=== PATIENT | female | born 1940 | race Caucasian/White ===

== ENCOUNTER 2017-01-17 13:46 | Outpatient (CLI) | payer MEDICARE, OTHER | END 2017-01-17 13:47 | disposition home or self-care (01) | LOC: DI 13:46 | PROVIDERS: ATTEND Internal Medicine Cardiovascular Disease | DX: I48.0 Paroxysmal atrial fibrillation (principal); I51.7 Cardiomegaly | CPT/HCPCS: 93306 ==

== ENCOUNTER 2017-02-27 09:18 | Emergency (ER) | payer MEDICARE, OTHER ==
[2017-02-27] MEDS ORDERED: LIDOCAINE PATCH 5% TOP STA (10:22)
--- NOTE | 2017-02-27 10:27 | ED Physician Documentation ---
History of Present Illness - Stated complaint Stated Complaint: BACK PAIN - Chief complaint Chief Complaint: Back Pain - Additonal information Additional information: hx from pt 76 f on coumadin insidious onset severe low right back pain hx sciatica but this is different no fever no CP no abd pain no dysuria hematuria no saddle anesthesia some numbness to upper lat R thigh no recent surgery or dental work Review of Systems Constitutional: denies: Fever, Chills Cardiac: denies: Chest pain / pressure Respiratory: denies: Dyspnea GI: denies: Abdominal Pain : denies: Dysuria, Incontinent, Hematuria Musculoskeletal: reports: Back pain Neurologic: reports: Numbness (R thigh) Endocrine: reports: Easy bruising / bleeding Immunocompromised: denies: Immunocompromised PD PAST MEDICAL HISTORY - Past Medical History Past Medical History: Yes Cardiovascular: Hypertension, High cholesterol, Atrial fibrillation Respiratory: COPD - Past Surgical History Past Surgical History: Yes General: Appendectomy HEENT: Cataracts - Present Medications Home Medications: Ambulatory Orders Medication Instructions Recorded Confirmed Flecainide [Tambocar] 100 mg PO BID 09/22/15 02/27/17 Fluticasone [Flonase] 2 puffs INH DAILY 09/22/15 02/27/17 Fluticasone/Salmeterol [Advair 2 puffs INH DAILY 09/22/15 02/27/17 500-50 Diskus] Ipratropium/Albuterol [Combivent 2 puffs INH DAILY 09/22/15 02/27/17 Respimat] Levothyroxine Sodium [Levoxyl] 25 mcg PO DAILY 09/22/15 02/27/17 Pravastatin [Pravachol] 40 mg PO DAILY 09/22/15 02/27/17 Warfarin Sodium [Coumadin] 5 mg PO DAILY 09/22/15 02/27/17 diltiaZEM CD [Cardizem Cd] 120 mg PO BID 09/22/15 02/27/17 Acetaminophen [Tylenol] 3 tab PO DAILY PM PRN 02/27/17 02/27/17 Cephalexin [Keflex] 500 mg PO Q6H #40 capsule 02/27/17 Furosemide 1 tab PO DAILY 02/27/17 02/27/17 HYDROcod/ACETAM 5/325 [[place] 5/325] 1 tab PO QID PRN 02/27/17 02/27/17 Lidocaine Patch 5% [Lidoderm Patch] 1 - 2 each TOP DAILY PRN #20 patch 02/27/17 Psyllium Husk [Metamucil] 1 packet PO DAILY 02/27/17 02/27/17 - Allergies Allergies/Adverse Reactions: Allergies Allergy/AdvReac Type Severity Reaction Status Date / Time Sulfa (Sulfonamide Allergy Unknown Verified 02/27/17 09:26 Antibiotics) - Social History Does the pt smoke?: No Smoking Status: Never smoker Does the pt drink ETOH?: Yes Does the pt have substance abuse?: No - Immunizations Immunizations are current?: Yes - POLST Patient has POLST: No PD ED PE NORMAL - Vitals Vital signs reviewed: Yes - Neck Neck: Supple, no meningeal sign - Cardiac Cardiac: RRR - Respiratory Respiratory: No respiratory distress, Clear bilaterally - Abdomen Abdomen: Soft, Non tender, Other (no pulsatile mass) - Back Back: No spinal TTP, Other (TTP low right lumbar region - no rash hematoma swelling bruising) - Derm Derm: Normal color - Neuro Neuro: Other (hip flex knee ext foot dorsi planta great toe ext 5/5, dec senation lateral upper right thigh, no clonus, patellar DTR 2/4, denies saddle anesthesia, neg SLR [place]) Results - Vitals Vitals: Vital Signs - 24 hr 02/27/17 09:20 Temperature 36.4 C L Heart Rate 68 Respiratory 20 Rate Blood Pressure 156/56 H O2 Saturation 92 Oxygen O2 Source Nasal cannula - Labs Labs: Laboratory Tests 02/27/17 02/27/17 02/27/17 11:02 11:25 11:25 WBC 7.3 RBC 4.38 Hgb 13.3 Hct 41.0 MCV 93.7 MCH 30.5 MCHC 32.5 RDW 15.0 Plt Count 274 MPV 8.3 Neut # 5.2 Lymph # 1.6 [place] # 0.4 Eos # 0.1 Baso # 0.1 Absolute Nucleated RBC 0.00 Nucleated RBC % 0.1 PT 34.3 H INR 3.0 H Sodium Potassium Chloride Carbon Dioxide Anion Gap BUN Creatinine Estimated GFR (MDRD) Glucose Calcium Urine Color YELLOW Urine Clarity CLOUDY Urine pH 6.5 Ur Specific [place] 1.025 Urine Protein NEGATIVE Urine Glucose (UA) NEGATIVE Urine Ketones NEGATIVE Urine Occult Blood TRACE-INTA Urine Nitrite POSITIVE H Urine Bilirubin NEGATIVE Urine Urobilinogen 0.2 (NORMAL) Ur Leukocyte Esterase TRACE H Urine RBC 0-5 Urine WBC 11-25 H Ur Squamous Epith Cells FEW Squamous Urine Bacteria Many H Urine Mucus Few Strands Ur Microscopic Review INDICATED Urine Culture Comments INDICATED 02/27/17 11:25 WBC RBC Hgb Hct MCV MCH MCHC RDW Plt Count MPV Neut # Lymph # [place] # Eos # Baso # Absolute Nucleated RBC Nucleated RBC % PT INR Sodium 138 Potassium 3.7 Chloride 100 L Carbon Dioxide 28 Anion Gap 10.0 BUN 12 Creatinine 0.8 Estimated GFR (MDRD) 70 L Glucose 116 H Calcium 8.8 Urine Color Urine Clarity Urine pH Ur Specific [place] Urine Protein Urine Glucose (UA) Urine Ketones Urine Occult Blood Urine Nitrite Urine Bilirubin Urine Urobilinogen Ur Leukocyte Esterase Urine RBC Urine WBC Ur Squamous Epith Cells Urine Bacteria Urine Mucus Ur Microscopic Review Urine Culture Comments - Rads (name of study) CT abd pelvis Radiology: See rad report (no acute, pulm dz no change, hypersense L renal 1.3 cm nodule mildly inc from 2016 rec sono) PD MEDICAL DECISION MAKING - ED course ED course: CT no acute process does have UTI perhaps developing into pyelo feels much better after lido patch and would like to go home with same Departure - Departure Disposition: 01 Home, Self Care Clinical Impression: Pyelonephritis Back pain Qualifiers: Back pain location: low back pain Chronicity: acute Back pain laterality: right Sciatica presence: without sciatica Qualified Code(s): M54.5 - Low back pain Condition: Good Instructions: ED Kidney Infec Female, ED Neck Back Pain General Follow-Up: Morgan Becker MD [Primary Care Provider] - Prescriptions: Cephalexin [Keflex] 500 mg PO Q6H #40 capsule Lidocaine Patch 5% [Lidoderm Patch] 1 - 2 each TOP DAILY PRN #20 patch PRN Reason: Pain Comments: Please have your INR monitored carefully while you are on antibiotics - even keflex can cause the INR to go up. Take a probiotic with the antibiotic to prevent GI upset. Lidocaine patches as needed for pain. Please follow up with your PMD for a recheck - also please ask your PMD to get an ultrasound of your left kidney to further evaluate the nodule that was seen on CT (it has been there since your last CT scan but is a little bigger than before) And please get your blood pressure rechecked - it was high today
[2017-02-27] MEDS ORDERED: LIDOCAINE PATCH 5% TOP ONE (10:29)
--- NOTE | 2017-02-27 11:09 | CT Preliminary Report ---
Exam: CT ABDOMEN/PELVIS W/O IMPRESSION: 1. No definite acute abnormality of the abdomen or pelvis, by noncontrast imaging. 2. Pulmonary emphysematous disease and pulmonary nodules, without change. 3. Hyperdense left renal 1.3 cm nodule has mildly increased from 09/22/2015 and may represent an enla rging hyperdense cyst but it is not specific. Ultrasound is recommended for further characterization. 4. Additional chronic and postoperative findings, as above. [facility] SITE ID: [id number]
--- NOTE | 2017-02-27 11:12 | CT Report ---
EXAM: CT ABDOMEN AND PELVIS (CT KUB) EXAM DATE: 02/27/2017 10:44 AM. CLINICAL HISTORY: Atraumatic right low back pain coumadin. COMPARISONS: None. TECHNIQUE: Routine axial helical CT imaging was performed through the abdomen and pelvis without IV c ontrast. Reconstructions: Coronal and sagittal. In accordance with CT protocol optimization, one or more of the following dose reduction techniques w ere utilized for this exam: automated exposure control, adjustment of mA and/or KV based on patient s ize, or use of iterative reconstructive technique. FINDINGS: Lung Bases: Stable pulmonary emphysematous disease, pulmonary scarring and bilateral pulmonary nodule s. Right Kidney/Ureter: No stones, hydronephrosis, or hydroureter. No perinephric fat stranding. Left Kidney/Ureter: Posterior exophytic 1.5 hypodensity is stable and consistent with a cyst. A sligh tly hyperdense 1.1 cm mid intrarenal nodule appears mildly increased in size. This may be an increasi ng hyperdense cyst but it is not specific. Ultrasound correlation could be performed. No hydronephros is, hydroureter or significant perinephric stranding. Other Solid Organs: Noncontrast images of the solid organs are grossly unremarkable. Gallbladder/Bile Ducts: Unremarkable. Peritoneal Cavity: No free fluid, free air or merissa adenopathy. Substantial colonic diverticulosis wi thout evidence of diverticulitis. The cecum projects anteriorly and somewhat superiorly. The appendix is not clearly identified but there is no evidence of appendicitis.. Pelvic Organs: Limited evaluation due to artifact from right hip arthroplasty. No merissa abnormality o f the bladder or visualized pelvic organs. Vasculature: Substantial atherosclerotic calcifications, without aneurysm. Other: No definite acute osseous abnormality. Status post left hip arthroplasty. Severe left hip oste oarthritis redemonstrated. Degenerative disease of the spine. Stable grade 1 anterolisthesis at L4-L5 . Fat-containing umbilical region hernia is mildly increased. IMPRESSION: 1. No definite acute abnormality of the abdomen or pelvis, by noncontrast imaging. 2. Pulmonary emphysematous disease and pulmonary nodules, without change. 3. Hyperdense left renal 1.3 cm nodule has mildly increased from 09/22/2015 and may represent an enla rging hyperdense cyst but it is not specific. Ultrasound is recommended for further characterization. 4. Additional chronic and postoperative findings, as above. [facility] Referring Provider Line: [phone] SITE ID: [id number]
[2017-02-27 11:33] LABS: BASOPHILS # (AUTO) 0.1 10^3/uL (0.0-0.1); BASOPHILS % (AUTO) 0.9 %; EOSINOPHILS # (AUTO) 0.1 10^3/uL (0.0-0.7); EOSINOPHILS % (AUTO) 0.8 %; HGB - HEMOGLOBIN 13.3 g/dL (12.0-16.0); LYMPHOCYTES # (AUTO) 1.6 10^3/uL (1.5-3.5); LYMPHOCYTES % (AUTO) 21.7 %; MEAN CORPUSCULAR HEMOGLOBIN 30.5 pg (27.0-31.0); MEAN CORPUSCULAR HGB CONC 32.5 g/dL (32.0-36.0); MEAN CORPUSCULAR VOLUME 93.7 fL (81.0-99.0); MEAN PLATELET VOLUME 8.3 fL (7.9-10.8); MONOCYTES # (AUTO) 0.4 10^3/uL (0.0-1.0); MONOCYTES % (AUTO) 5.8 %; NEUTROPHILS # (AUTO) 5.2 10^3/uL (1.5-6.6); NEUTROPHILS % (AUTO) 70.8 %; NUCLEATED RED BLOOD CELLS AUTO 0.1 /100WBC; RED BLOOD COUNT 4.38 10^6/uL (4.20-5.40); UNCORRECTED WHITE BLOOD COUNT 7.3 x10^3/uL; WHITE BLOOD COUNT 7.3 x10^3/uL (4.8-10.8)
[2017-02-27 11:39] LABS: BILIRUBIN,URINE NEGATIVE (NEGATIVE); PH,URINE 6.5 PH (5.0-7.5); UA w/ MICROSCOPIC CHARGE YES
[2017-02-27 11:40] LABS: CALCIUM 8.8 mg/dL (8.5-10.3); CREATININE 0.8 mg/dL (0.4-1.0); POTASSIUM 3.7 mmol/L (3.5-5.0)
[2017-02-27 11:58] LABS: PT - PROTHROMBIN TIME 34.3 secs (9.9-12.6)
[2017-02-27 12:16] LABS: UR CULTURE IF IND INDICATED
[2017-02-27 13:13] VITALS: BP 146/76
== END 2017-02-27 13:18 | disposition home or self-care (01) ==
LOC: ED 09:18
DX: N12 Tubulo-interstitial nephritis, not specified as acute or chronic (principal); M54.5 Low back pain; I10 Essential (primary) hypertension; E78.00 Pure hypercholesterolemia, unspecified; Z79.01 Long term (current) use of anticoagulants
CPT/HCPCS: 36415; 74176; 80048; 81001; 85025; 85610; 87077; 87086; 87181; 99283; A9270; 81003

== ENCOUNTER 2017-03-30 14:36 | Outpatient (CLI) | payer MEDICARE, OTHER ==
--- NOTE | 2017-03-30 16:43 | Ultrasound Report ---
LIMITED PELVIC ULTRASOUND: 03/30/2017 CLINICAL INDICATION: Right groin pain, question hernia. TECHNIQUE: Real-time scanning was performed with outreach representative static images obtained. FINDINGS: Ultrasound of the right groin was performed. No inguinal or femoral hernia is identified. A normal sized right inguinal lymph node is incidentally noted. The vasculature appears unremarkable. IMPRESSION: NO EVIDENCE OF A RIGHT INGUINAL HERNIA. JOB #: [id number] EXT JOB #:
--- NOTE | 2017-03-30 16:50 | Ultrasound Report ---
RENAL ULTRASOUND: 03/30/2017 CLINICAL INDICATION: Possible hyperdense cyst left kidney on CT. COMPARISON: CT of 02/27/2017. TECHNIQUE: Real-time sonographic vascular imaging was performed by the integration assistant through the kidneys utilizing both color-flow and Doppler spectral analysis. Multiple sales representatives static images were saved for review. FINDINGS: Image quality is degraded by patient body habitus and difficulty suspending respiration (patient on oxygen with chronic lung disease). The right kidney measures 10.4 x 4.9 x 4.5 cm. No focal renal lesion, hydronephrosis, or perinephric collection is appreciated. The left kidney measures 12.0 x 5.3 x 5.1 cm. Neither the exophytic cyst arising from the upper pole or the possible hyperdense cyst in the lateral cortex of the left kidney is appreciated by ultrasound. No hydronephrosis or perinephric collection is seen. Prevoid, the urinary bladder measures 8.8 x 6.8 x 4.9 cm, yielding a prevoid volume of 156 mL. Bilateral ureteral jets are visualized. No significant postvoid residual is present. IMPRESSION: NONVISUALIZATION OF POSSIBLE LEFT RENAL CYSTS. CONSIDER FURTHER EVALUATION WITH CT IVP IF CLINICALLY WARRANTED. JOB #: [id number] EXT JOB #: MTDD
== END 2017-03-30 14:37 | disposition home or self-care (01) ==
LOC: DI 14:36
PROVIDERS: ATTEND Nurse Practitioner Family
DX: R10.31 Right lower quadrant pain (principal); N28.1 Cyst of kidney, acquired
CPT/HCPCS: 76770; 76857

== ENCOUNTER 2017-04-02 12:31 | Outpatient (CLI) | payer MEDICARE, OTHER ==
[2017-04-02 18:57] LABS: ALBUMIN/GLOBULIN RATIO 1.5 (1.0-2.2); BILIRUBIN,TOTAL 0.6 mg/dL (0.2-1.0); BUN - BLOOD UREA NITROGEN 21 mg/dL (6-20); CALCIUM 9.1 mg/dL (8.5-10.3); CARBON DIOXIDE - CO2 27 mmol/L (21-32); CHLORIDE 100 mmol/L (101-111); CHOLESTEROL 230 mg/dL; GFR - MDRD 54 (>89); GLUCOSE 85 mg/dL (70-100); HDL CHOLESTEROL 58 mg/dL; LDL/HDL RATIO 2.6 (<4.4); POTASSIUM 3.7 mmol/L (3.5-5.0); SODIUM 138 mmol/L (135-145); TOTAL PROTEIN 7.6 g/dL (6.7-8.2); TRIGLYCERIDES 119 mg/dL; VLDL CHOLESTEROL 24 mg/dL
[2017-04-02 20:20] LABS: HEMOGLOBIN A1C 0.65 g/dL
== END 2017-04-02 12:32 | disposition home or self-care (01) ==
LOC: LAB.S 12:31
PROVIDERS: ATTEND Family Medicine
DX: I10 Essential (primary) hypertension (principal); R73.01 Impaired fasting glucose; E78.5 Hyperlipidemia, unspecified; I48.0 Paroxysmal atrial fibrillation; E03.9 Hypothyroidism, unspecified; H00.13 Chalazion right eye, unspecified eyelid; J44.9 Chronic obstructive pulmonary disease, unspecified
CPT/HCPCS: 36415; 80053; 80061; 83036; 84443

== ENCOUNTER 2017-08-03 08:00 | Outpatient (CLI) | payer MEDICARE, OTHER ==
[2017-08-03 17:43] LABS: BASOPHILS % (AUTO) 0.4 %; EOSINOPHILS # (AUTO) 0.1 10^3/uL (0.0-0.7); EOSINOPHILS % (AUTO) 0.9 %; HGB - HEMOGLOBIN 13.7 g/dL (12.0-16.0); LYMPHOCYTES # (AUTO) 2.1 10^3/uL (1.5-3.5); LYMPHOCYTES % (AUTO) 26.8 %; MEAN CORPUSCULAR HEMOGLOBIN 30.8 pg (27.0-31.0); MEAN CORPUSCULAR HGB CONC 32.8 g/dL (32.0-36.0); MEAN CORPUSCULAR VOLUME 93.8 fL (81.0-99.0); MEAN PLATELET VOLUME 9.3 fL (7.9-10.8); MONOCYTES # (AUTO) 0.6 10^3/uL (0.0-1.0); MONOCYTES % (AUTO) 7.6 %; NEUTROPHILS # (AUTO) 5.1 10^3/uL (1.5-6.6); NEUTROPHILS % (AUTO) 64.3 %; PLT - PLATELET COUNT 255 10^3/uL (130-450); RED BLOOD COUNT 4.46 10^6/uL (4.20-5.40); RED CELL DISTRIBUTION WIDTH 14.9 % (12.0-15.0)
[2017-08-03 18:06] LABS: ALBUMIN 4.1 g/dL (3.2-5.5); ALBUMIN/GLOBULIN RATIO 1.2 (1.0-2.2); BILIRUBIN,TOTAL 0.4 mg/dL (0.2-1.0); CALCIUM 9.1 mg/dL (8.5-10.3); TOTAL PROTEIN 7.4 g/dL (6.7-8.2)
[2017-08-03 18:50] LABS: HB2 TOTAL 15.3 g/dL; HEMOGLOBIN A1C 0.65 g/dL
== END 2017-08-03 08:01 | disposition home or self-care (01) ==
LOC: LAB.F 08:00
PROVIDERS: ATTEND Family Medicine
DX: I48.0 Paroxysmal atrial fibrillation (principal); R73.01 Impaired fasting glucose; E03.9 Hypothyroidism, unspecified
CPT/HCPCS: 36415; 80053; 83036; 84443; 85025

== ENCOUNTER 2018-01-29 13:39 | Outpatient (CLI) | payer MEDICARE, OTHER ==
[2018-01-29 20:19] LABS: ALT ALANINE AMINOTRANSFERASE 22 IU/L (10-60); AST ASPARTATE AMINOTRANSFERASE 24 IU/L (10-42); BUN - BLOOD UREA NITROGEN 19 mg/dL (6-20); CARBON DIOXIDE - CO2 30 mmol/L (21-32); CHLORIDE 98 mmol/L (101-111); CHOL/HDL RATIO 4.3 (<4.4); CHOLESTEROL 264 mg/dL; CREATININE 0.9 mg/dL (0.4-1.0); GFR - MDRD 61 (>89); GLUCOSE 96 mg/dL (70-100); HDL CHOLESTEROL 62 mg/dL; LDL CHOLESTEROL,CALCULATED 173 mg/dL; LDL/HDL RATIO 2.8 (<4.4); SODIUM 138 mmol/L (135-145); VLDL CHOLESTEROL 29 mg/dL
== END 2018-01-29 13:40 | disposition home or self-care (01) ==
LOC: LAB.F 13:39
PROVIDERS: ATTEND Internal Medicine
DX: I10 Essential (primary) hypertension (principal); E03.9 Hypothyroidism, unspecified; E78.5 Hyperlipidemia, unspecified
CPT/HCPCS: 36415; 80048; 80061; 83036; 83721; 84443; 84450; 84460

== ENCOUNTER 2018-06-25 01:52 | Outpatient (CLI) | payer MEDICARE, OTHER | END 2018-06-25 01:53 | disposition critical access hospital (66) | LOC: EMS 01:52 | PROVIDERS: ATTEND Surgery | DX: R06.02 Shortness of breath (principal) | CPT/HCPCS: A0425; A0427 ==

== ENCOUNTER 2018-06-25 02:26 | Inpatient (IN) | payer MEDICARE, OTHER ==
[2018-06-25] MEDS ORDERED: IPRATROPIUM/ALBUTEROL 3 ML NEB INH STA (02:34)
--- NOTE | 2018-06-25 02:39 | ED Physician Documentation ---
History of Present Illness - Stated complaint Stated Complaint: SOA - Chief complaint Chief Complaint: Resp - History obtained from History obtained from: Patient, Family - History of Present Illness Timing: How many days ago (4) Pain level max: 0 Pain level now: 0 Improved by: rest Worsened by: movement - Additonal information Additional information: 77-year-old female presents to the emergency department with upper respiratory infection and coughing for the past 4 days. She is on home O2. Review of Systems Constitutional: denies: Fever, Chills Nose: reports: Rhinorrhea / runny nose, Congestion Respiratory: reports: Cough, Wheezing GI: denies: Abdominal Pain, Nausea, Vomiting, Diarrhea Skin: denies: Rash Musculoskeletal: denies: Neck pain, Back pain Neurologic: denies: Headache PD PAST MEDICAL HISTORY - Past Medical History Cardiovascular: Hypertension, High cholesterol, Atrial fibrillation Respiratory: COPD - Past Surgical History Past Surgical History: Yes General: Appendectomy HEENT: Cataracts - Present Medications Home Medications: Ambulatory Orders Medication Instructions Recorded Confirmed Flecainide [Tambocar] 100 mg PO BID 09/22/15 06/25/18 Fluticasone [Flonase] 2 puffs INH DAILY 09/22/15 06/25/18 Fluticasone/Salmeterol [Advair 2 puffs INH DAILY 09/22/15 06/25/18 500-50 Diskus] Ipratropium/Albuterol [Combivent 2 puffs INH DAILY 09/22/15 06/25/18 Respimat] Levothyroxine Sodium [Levoxyl] 25 mcg PO DAILY 09/22/15 06/25/18 Pravastatin [Pravachol] 40 mg PO DAILY 09/22/15 06/25/18 Warfarin Sodium [Coumadin] 5 mg PO DAILY 09/22/15 06/25/18 diltiaZEM CD [Cardizem Cd] 120 mg PO BID 09/22/15 06/25/18 Acetaminophen [Tylenol] 3 tab PO DAILY PM PRN 02/27/17 06/25/18 Cephalexin [Keflex] 500 mg PO Q6H #40 capsule 02/27/17 06/25/18 Furosemide 1 tab PO DAILY 02/27/17 06/25/18 HYDROcod/ACETAM 5/325 [[place] 5/325] 1 tab PO QID PRN 02/27/17 06/25/18 Lidocaine Patch 5% [Lidoderm Patch] 1 - 2 each TOP DAILY PRN #20 patch 02/27/17 06/25/18 Psyllium Husk [Metamucil] 1 packet PO DAILY 02/27/17 06/25/18 - Allergies Allergies/Adverse Reactions: Allergies Allergy/AdvReac Type Severity Reaction Status Date / Time Sulfa (Sulfonamide Allergy Unknown Verified 06/25/18 02:34 Antibiotics) - Social History Does the pt smoke?: No Smoking Status: Never smoker Does the pt drink ETOH?: Yes Does the pt have substance abuse?: No - Immunizations Immunizations are current?: Yes - POLST Patient has POLST: No PD ED PE NORMAL - Vitals Vital signs reviewed: Yes - General General: Alert and oriented X 3, Other (mod resp distress) - HEENT HEENT: Moist mucous membranes - Neck Neck: Supple, no meningeal sign - Cardiac Cardiac: Other (irregularly irregular) - Respiratory Respiratory: Other (rhonchi and wheezing B) - Abdomen Abdomen: Soft, Non tender, Non distended - Derm Derm: No rash - Extremities Extremities: No edema - Neuro Neuro: Alert and oriented X 3 Results - Vitals Vitals: Vital Signs - 24 hr 06/25/18 06/25/18 06/25/18 02:27 02:34 02:43 Temperature 37.2 C Heart Rate 112 H 106 H 99 Respiratory 22 22 26 H Rate Blood Pressure 116/64 116/64 O2 Saturation 76 L 85 L 06/25/18 06/25/18 03:04 03:30 Temperature Heart Rate 118 H 108 H Respiratory 31 H 27 H Rate Blood Pressure 126/55 L 107/63 O2 Saturation 95 88 L Oxygen O2 Source Nasal cannula - EKG (time done) 0234 Rate: Rate (enter#) (111) Rhythm: Atrial fibrillation Intervals: Wide QRS Ischemia: ST depression - Labs Labs: Laboratory Tests 06/25/18 06/25/18 06/25/18 02:52 02:52 02:52 WBC 12.0 H RBC 4.31 Hgb 13.4 Hct 40.5 MCV 94.1 MCH 31.2 H MCHC 33.2 RDW 14.5 Plt Count 247 MPV 8.4 Neut # (Auto) 10.5 H Lymph # (Auto) 0.8 L [place] # (Auto) 0.7 Eos # (Auto) 0.0 Baso # (Auto) 0.0 Absolute Nucleated RBC 0.00 Nucleated RBC % 0.0 PT 27.7 H INR 2.5 H Sodium 135 Potassium 3.7 Chloride 97 L Carbon Dioxide 26 Anion Gap 12.0 BUN 21 H Creatinine 0.8 Estimated GFR (MDRD) 70 L Glucose 142 H Lactic Acid Calcium 7.9 L Total Bilirubin 0.7 AST 29 ALT 27 Alkaline Phosphatase 66 Troponin I B-Natriuretic Peptide Total Protein 7.3 Albumin 3.8 Globulin 3.5 Albumin/Globulin Ratio 1.1 Lipase 23 Influenza A (Rapid) Influenza B (Rapid) 06/25/18 06/25/18 06/25/18 02:52 02:55 03:20 WBC RBC Hgb Hct MCV MCH MCHC RDW Plt Count MPV Neut # (Auto) Lymph # (Auto) [place] # (Auto) Eos # (Auto) Baso # (Auto) Absolute Nucleated RBC Nucleated RBC % PT INR Sodium Potassium Chloride Carbon Dioxide Anion Gap BUN Creatinine Estimated GFR (MDRD) Glucose Lactic Acid Calcium Total Bilirubin AST ALT Alkaline Phosphatase Troponin I 0.04 B-Natriuretic Peptide 754 H Total Protein Albumin Globulin Albumin/Globulin Ratio Lipase Influenza A (Rapid) Negative Influenza B (Rapid) Negative 06/25/18 03:35 WBC RBC Hgb Hct MCV MCH MCHC RDW Plt Count MPV Neut # (Auto) Lymph # (Auto) [place] # (Auto) Eos # (Auto) Baso # (Auto) Absolute Nucleated RBC Nucleated RBC % PT INR Sodium Potassium Chloride Carbon Dioxide Anion Gap BUN Creatinine Estimated GFR (MDRD) Glucose Lactic Acid 1.4 Calcium Total Bilirubin AST ALT Alkaline Phosphatase Troponin I B-Natriuretic Peptide Total Protein Albumin Globulin Albumin/Globulin Ratio Lipase Influenza A (Rapid) Influenza B (Rapid) - Rads (name of study) cxr Radiology: Prelim report reviewed, EMP read contemporaneously, See rad report (RLL infiltrate) PD MEDICAL DECISION MAKING - ED course Complexity details: reviewed results, re-evaluated patient, considered differential, d/w patient, d/w family, d/w health consultant ED course: 77-year-old female presents to the emergency department with COPD exacerbation and right lower lobe pneumonia. Given Rocephin and doxycycline. She is on flecainide for A. fib, therefore macrolides were not used. She improved with steroids and nebulizer treatment. Still has a high oxygen requirement. Discussed the case with the hospitalist, Dr. Hagen, who accepts. This document was made in part using voice recognition software. While efforts are made to proofread this document, sound alike and grammatical errors may occur. Departure - Departure Disposition: 66 [facility] DC/Xfer Clinical Impression: COPD with exacerbation, Hypoxia Pneumonia Qualifiers: Pneumonia type: due to unspecified organism Laterality: right Lung location: lower lobe of lung Qualified Code(s): J18.1 - Lobar pneumonia, unspecified organism Atrial fibrillation Qualifiers: Atrial fibrillation type: chronic Qualified Code(s): I48.2 - Chronic atrial fibrillation Condition: Stable
[2018-06-25] MEDS ORDERED: ALBUTEROL NEB 2.5 MG/3 ML INH STA (03:00)
[2018-06-25 03:04] LABS: BASOPHILS % (AUTO) 0.3 %; HGB - HEMOGLOBIN 13.4 g/dL (12.0-16.0); LYMPHOCYTES # (AUTO) 0.8 10^3/uL (1.5-3.5); LYMPHOCYTES % (AUTO) 6.3 %; MEAN CORPUSCULAR HEMOGLOBIN 31.2 pg (27.0-31.0); MEAN CORPUSCULAR HGB CONC 33.2 g/dL (32.0-36.0); MEAN CORPUSCULAR VOLUME 94.1 fL (81.0-99.0); MEAN PLATELET VOLUME 8.4 fL (7.9-10.8); MONOCYTES # (AUTO) 0.7 10^3/uL (0.0-1.0); MONOCYTES % (AUTO) 6.1 %; NEUTROPHILS # (AUTO) 10.5 10^3/uL (1.5-6.6); NEUTROPHILS % (AUTO) 87.3 %; PLT - PLATELET COUNT 247 10^3/uL (130-450); RED BLOOD COUNT 4.31 10^6/uL (4.20-5.40); RED CELL DISTRIBUTION WIDTH 14.5 % (12.0-15.0)
--- NOTE | 2018-06-25 03:11 | XRAY Report ---
Reason: cough Procedure Date: 06/25/2018 Accession Number: [id number] / [id number] Procedure: XR - Chest 1 View X-Ray CPT Code: 95519 FULL RESULT: EXAM: CHEST RADIOGRAPHY EXAM DATE: 06/25/2018 03:00 AM. CLINICAL HISTORY: Cough. COMPARISON: XR CHEST PA AND LAT 06/08/2009 2:21 PM. TECHNIQUE: 1 view. FINDINGS: Lungs/Pleura: New right basilar infiltrate and trace right effusion. No pneumothorax. Stable emphysematous changes. Mediastinum: Within exam limitations, the cardiomediastinal contour is normal. Other: None. IMPRESSION: New right basilar infiltrate. Emphysema. [facility]
[2018-06-25 03:12] LABS: ALBUMIN 3.8 g/dL (3.2-5.5); ALBUMIN/GLOBULIN RATIO 1.1 (1.0-2.2); BILIRUBIN,TOTAL 0.7 mg/dL (0.2-1.0); CALCIUM 7.9 mg/dL (8.5-10.3); CREATININE 0.8 mg/dL (0.4-1.0); TOTAL PROTEIN 7.3 g/dL (6.7-8.2)
[2018-06-25 03:21] LABS: INR 2.5 (0.8-1.2); PT - PROTHROMBIN TIME 27.7 secs (9.9-12.6)
[2018-06-25] MEDS ORDERED: methylPREDNISolone SUCCINATE 40 MG/ML VIAL IVP STA (03:22)
[2018-06-25] MEDS ORDERED: cefTRIAXone 1 GM VIAL IVP STA (03:23)
[2018-06-25] MEDS ORDERED: DOXYCYCLINE INJ 100 MG in SODIUM CHLORIDE 0.9% MINIBAG 100 ML IV STA (03:23)
[2018-06-25] MEDS ORDERED: ACETAMINOPHEN 325 MG TABLET PO PRN (03:50)
[2018-06-25] MEDS ORDERED: ONDANSETRON 4 MG/2 ML VIAL IVP PRN (03:50)
[2018-06-25] MEDS ORDERED: ONDANSETRON ODT 4 MG TABLET TL PRN (03:50)
[2018-06-25] MEDS ORDERED: IBUPROFEN 400 MG TABLET PO PRN (03:50)
[2018-06-25] MEDS ORDERED: oxyCODONE 5 MG TABLET PO PRN (03:50)
[2018-06-25] MEDS ORDERED: LIDOCAINE PATCH 5% TOP PRN (03:52)
[2018-06-25] MEDS ORDERED: HYDROcod/ACETAM 5/325 MG TABLET PO PRN (03:52)
[2018-06-25 05:33] LABS: BASOPHILS % (AUTO) 0.2 %; HGB - HEMOGLOBIN 13.3 g/dL (12.0-16.0); LYMPHOCYTES # (AUTO) 0.6 10^3/uL (1.5-3.5); LYMPHOCYTES % (AUTO) 4.3 %; MEAN CORPUSCULAR HEMOGLOBIN 31.9 pg (27.0-31.0); MEAN CORPUSCULAR HGB CONC 33.5 g/dL (32.0-36.0); MEAN CORPUSCULAR VOLUME 95.4 fL (81.0-99.0); MEAN PLATELET VOLUME 8.4 fL (7.9-10.8); MONOCYTES # (AUTO) 0.7 10^3/uL (0.0-1.0); NEUTROPHILS # (AUTO) 12.1 10^3/uL (1.5-6.6); NEUTROPHILS % (AUTO) 90.5 %; PLT - PLATELET COUNT 231 10^3/uL (130-450); RED BLOOD COUNT 4.16 10^6/uL (4.20-5.40); RED CELL DISTRIBUTION WIDTH 14.5 % (12.0-15.0); WHITE BLOOD COUNT 13.4 x10^3/uL (4.8-10.8)
[2018-06-25 05:40] LABS: CALCIUM 7.7 mg/dL (8.5-10.3); CREATININE 0.9 mg/dL (0.4-1.0)
[2018-06-25] MEDS: guaiFENesin/CODEINE 5 ML UDC PO PRN ×3 (06:27→23:08)
[2018-06-25] MEDS: FORMOTEROL FUMARATE NEB 20 MCG/2 ML INH SCH ×2 (06:35→19:59)
[2018-06-25] MEDS: BUDESONIDE 0.5 MG/2 ML NEB INH SCH ×2 (06:35→20:00)
[2018-06-25] MEDS: IPRATROPIUM/ALBUTEROL 3 ML NEB INH SCH ×4 (06:35→19:50)
--- NOTE | 2018-06-25 06:51 | HISTORY & PHYSICAL EXAMINATION ---
DATE OF SERVICE: 06/25/2018 Physician: Savanah Hagen MD PRIMARY CARE PROVIDER: [facility]. ADMITTING PROVIDER: Savanah Hagen MD CHIEF COMPLAINT: Severe shortness of breath, inability to ambulate that was sudden tonight after a long cold. HISTORY OF PRESENT ILLNESS: She is a 77-year-old female who has emphysema. She is followed by the [facility] for cardiology, as well as pulmonology. She had a terrible cold in May and was just barely getting over it, when she was exposed to her and daughter getting another cold. She then subsequently came down with sore throat, fever, severe nasal congestion, and chest congestion. She is on 3 liters nasal cannula at home for her emphysema. She is on a long-acting bronchodilator, as well as Spiriva and ProAir. On a daily basis she produces phlegm, that is clear. She is ambulatory with a walker in her own home, but it takes her a very, very, very long time to do things like get dressed in the morning. With this recent upper respiratory tract infection, it has been difficult for her to get things done, but up until 1 o'clock this afternoon, she was holding her own. She had already called her sports trainer and he encouraged her to take [id number] Mucinex. No other medication prescribed. She went to bed just not feeling well. She woke up in the housekeeper hospital hours needing to go to the bathroom, and she took a few steps and was ready to collapse, and her legs would no longer support her. As such, EMS was called. She had some diarrhea. She denies urgency, frequency. She already has urinary incontinence and that is normal for her. She is usually chronically constipated and has to take MiraLax, so the diarrhea is new for her. She denies any abdominal pain. She has been eating normally up until today. She came to the emergency room, where she was evaluated by Dr. Jaleel Sanders. Temperature was 37.2. Pulse was 112. Her oxygen saturations on her 3 liters was 85%. She needed to go up to 8 liters to get to 90%. Respiratory rate was 22 and up to 31. Blood pressure is 116/64. She is a morbidly obese, white female in respiratory distress with severe wheezing, use of accessory muscles. She required albuterol, ceftriaxone, doxycycline (to avoid interaction with the flecainide), DuoNeb, methylprednisolone. She was able to stop wheezing, not be in such respiratory distress, but was still requiring 8 liters nasal cannula. Her chest x-ray shows a right lower lobe infiltrate. Her white cell count is 12. She is now admitted for pneumonia, as well as exacerbation of COPD. PAST MEDICAL HISTORY 1. 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 2. Chronic atrial fibrillation. Echocardiogram on 01/17/2017 shows mild concentric left ventricular hypertrophy, ejection fraction of 70% to 75%. Right ventricle normal in size and function, mild mitral regurgitation. Mild increase in left atrial volume index. 3. G3, P3. 4. Hyperlipidemia. 5. Hypertension. 6. Appendectomy. 7. Cataracts. 8. Severe degenerative arthritis of back, knees, and hips. She has only had a knee replacement so far. 9. Acquired hypothyroidism. 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 Both eyes were operated on, and only 1 eye shrunk down with 1 staying larger. ALLERGIES: SHE IS ALLERGIC TO SULFA. MEDICATIONS 1. Acetaminophen 325 mg tablet 3 tablets daily. 2. Cardizem CD 120 mg p.o. b.i.d. 3. Tambocor 100 mg p.o. b.i.d. 4. Flonase nasal spray 2 puffs daily, each nostril. 5. Advair 500/50 two puffs daily. 6. Lasix 20 mg daily. 7. Mccammon 5/325, one tablet every 6 hours as needed. 8. Combivent Respimat 2 puffs daily. 9. Levoxyl 25 mcg daily. 10. Pravastatin 40 mg daily. 11. Metamucil 1 packet daily. 12. Coumadin 5 mg daily. SOCIAL HISTORY: She is from [place], [place]. Met and her , who is her first . She was his second . 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 They finally came to the [place] when he retired in 1989. She has gradually become more disabled from her emphysema and one of her daughters moved in with her 3 years ago as an in-home provider. has been developing dementia. As long as he stays on the [place], he is fine, but if he leaves the [place] he gets incredibly lost. He still managed to do some stained glass projects. As long as you give him the colors to work with, he does well. She smoked up to 2 packs per day, started in 1961 and quit in 1988. She does not have a problem with alcohol abuse. She lives in her own home with her and daughter. No history of recreational substance abuse. FAMILY HISTORY 1. Dad in his 70s of lung cancer and COPD. 2. Mom of complications of diabetes. 3. She is one of 8 siblings. Two have . Both of them have of lung cancer. 4. Three children. There has been skin cancer, and uterine tumors that were not malignant in 1 daughter. REVIEW OF SYSTEMS CONSTITUTIONAL: There have been no unexpected weight changes, no sweats. ENT: One eye chronically larger than the other. She always has a mild runny nose, for which she takes Flonase. No dysphagia or dysarthria. Mildly deaf. PULMONARY: Chronic, daily dyspnea on exertion, rarely dyspnea at rest. Chronic daily phlegm production. Chronic daily mild cough. On 3 liters of nasal cannula a day. With this illness over the last 4 days, there has been increasing cough, change in the phlegm to a greenish yellow, no hemoptysis. Tonight with marked decreased cardiovascular endurance. HEART: Denies heart attack, congestive heart failure. Atrial fibrillation as above, on anticoagulation and rate control. GASTROINTESTINAL: She has chronic constipation. Denies any recent change in bowel habits, unless the diarrhea from tonight counts. She does not have indigestion or ulcers. GENITOURINARY: Incontinent of urine. Usually not incontinent of stool. Denies urgency, frequency, dysuria or flank pain. 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 She has mild chronic pain syndrome from it and uses opiates because she is not allowed nonsteroidals. Not a candidate for surgery because of her end-stage lung disease. PSYCHIATRIC: Very fatalistic about her illness. Denies depression, suicidal ideation. She says that in comparison to her 2 siblings with lung cancer, she would rather take emphysema. SKIN: Denies new rashes, new lesions, or changes. NEUROLOGIC: Memory is quite intact. She says that she still is able to do financial matters with her daughter. Her mobility is limited, not so much because of neurological deficit, but cardiopulmonary deficit, resulting in severe immobility and dyspnea on exertion. She has no seizures, syncope. PHYSICAL EXAMINATION VITAL SIGNS: Temperature is still 37.2. No repeat temperature done in the ER. Pulse is now 110, blood pressure 115/70, respirations 28, 90% saturated on 10 liters nasal cannula, Oxymizer. GENERAL: She is a pleasant, severely obese, elderly female with exophthalmus, severely runny nose, nasal tone of voice. She appears to have an essential tremor with constant tremors at rest of upper extremities and head shaking. ENT: Rhinorrhea, coryza, scleral injection, conjunctival paleness. Deeply nasal tone of voice. She blows her nose quite copiously and it is a bloody nose. Back of throat has postnasal drip changes with cobblestoning, but no exudate. NECK: Supple. Anterior cervical adenopathy present. Nontender. Difficult to assess for JVD because she has a short, thick neck, but no carotid bruit audible. LUNGS: Have improved since she has been in the ED. Dr. Sanders states that she was wheezing, even without a stethoscope, that could be heard across the room. While she has a sharp spasmodic cough that is nonstop while she tries to talk to me, her right lung has no wheezing and there is rhonchi mid lung and lower lobes. No egophony. Left lung has tubular breath sounds, and egophony in the left midlung that I attribute to her heart and not pneumonia. No use of accessory muscles. CARDIAC: PMI not palpable. A fast, irregular heart rate. No murmur audible. No rubs. ABDOMEN: Severely obese, soft, nontender. Normal bowel sounds. Cannot assess for organomegaly because of the large pannus. EXTREMITIES: Legs have 2+ edema on the right, 1+ edema on the left. Homans negative. No clubbing or cyanosis. NEUROLOGIC: She is alert. Oriented to person, place and time. She has no focal deficits. During my exam and speaking to her, she will take the nasal cannula off, plummet down to 87% on room air at rest, reach for tissues, blow her nose, replace nasal cannula, use her hands and arms to reposition the blanket to make herself more comfortable. However, she does not have the strength, to be able to transfer to sit, to transfer to stand on her own without a 2-person assist. Head tremor, bilateral arm and hand tremors. Toes are downgoing. She can plantar and dorsiflex her feet, lift her legs slightly off the bed. LABORATORY DATA: White cell count is 12, hemoglobin 13, hematocrit 40, platelets 247. INR 2.5. Sodium 135, potassium 3.7, BUN 21, creatinine 0.8, glucose 142, calcium 7.9. Lactic acid 1.4. Normal liver enzymes. Troponin less than 0.04. BNP 754, lipase 23. No urinalysis done. Influenza A and B rapid testing negative. Chest x-ray: New right basilar infiltrate with emphysema. This is compared to chest x-ray from 06/08/2009. ASSESSMENT/PLAN 1. Acute on chronic respiratory failure with hypoxia. Presumed hypercapnia, but no blood gas done at this time. Destabilization of her chronic obstructive pulmonary disease and chronic respiratory failure is from pneumonia and upper respiratory infection. Plan: a. Inpatient admission. b. Attestation that the patient will be discharged within 96 hours. c. Treat etiology for destabilization. d. Place in ICU. e. BiPAP if necessary. At this time, she appears improving, no BiPAP. 2. Pneumonia, community acquired in a patient with emphysema. Already started on Rocephin in the emergency room after blood cultures and sputum cultures ordered. Doxycycline chosen because of azithromycin interaction with flecainide. Plan: Adjust antibiotics on the basis of cultures. 3. Acute exacerbation of chronic obstructive pulmonary disease. Plan: a. Antibiotics as above. b. Change the long-acting bronchodilators via nebs. c. Fixed dose short-acting nebulizers t.i.d. for the next 24 hours. d. IV steroids for the next 24 hours. 4. Hypertension. Currently not a problem. Resume usual medications for rate control of atrial fibrillation. 5. Chronic atrial fibrillation, with RVR, on anticoagulation. Plan: Resume Cardizem and flecainide. May need to use digoxin. Make sure we use Xopenex as opposed to albuterol. 6. Generalized weakness. This woman has been fighting getting a scooter. She feels that if she gets a scooter she will decompensate even faster, but tonight really scared her because she could not keep her legs out from underneath her. She asked if she was a candidate for a scooter at this time and I explained to her that acute illness such as what she has right now will cause the weakness. She should be able to return to baseline with a good effort on her part, with regard to physical therapy. As such, PT will be ordered. She would like to return to home with physical therapy. If she is not able to go back home, she will reluctantly consider SNF placement with rehab. 7. DO NOT RESUSCITATE status. Initially, the patient wanted to be a FULL CODE. She said, "Do everything possible to keep me alive. "When I asked her what her goals were with regard to care and where she was with that care, she said that she always wanted to return to home. She never wanted to be placed in a care home permanently. I explained to her that with the full resuscitative effort of intubation, chest compressions, possible rib fractures, I did not feel that she had a reasonable expectation of returning to baseline if she had gotten that ill. With that in mind, she says that she did not want to live life that way and did not want to be a FULL CODE. She preferred to be DO NOT RESUSCITATE. 8. Deep venous thrombosis prophylaxis will be compression stockings and continued Coumadin. TD: 06/25/2018 05:39 BEE
[2018-06-25] MEDS: SACCHAROMYCES BOULARDII 250 MG CAPSULE PO SCH ×2 (08:09→17:43)
[2018-06-25] MEDS: FLECAINIDE 50 MG TABLET PO SCH ×2 (08:09→20:38)
[2018-06-25] MEDS: LEVOTHYROXINE 25 MCG TABLET PO SCH (08:10)
[2018-06-25] MEDS: diltiaZEM CD 120 MG CAPSULE PO SCH ×2 (08:11→20:38)
[2018-06-25] MEDS: PRAVASTATIN 40 MG TABLET PO SCH (08:11)
[2018-06-25] MEDS: SODIUM CHLORIDE FLUSH 0.9% 10 ML SYRINGE IVP SCH ×3 (08:12→22:28)
[2018-06-25] MEDS: guaiFENesin 600 MG TABLET PO SCH ×2 (08:13→20:38)
[2018-06-25] MEDS: POLYETHYLENE GLYCOL 3350 17 GM PACKET PO SCH (10:30)
[2018-06-25] MEDS: methylPREDNISolone SUCCINATE 40 MG/ML VIAL IVP SCH ×3 (11:07→22:28)
[2018-06-25] MEDS: DOXYCYCLINE INJ 100 MG in SODIUM CHLORIDE 0.9% MINIBAG 100 ML IV SCH ×2 (12:45→21:15)
[2018-06-25] MEDS ORDERED: DOXYCYCLINE INJ 100 MG in SODIUM CHLORIDE 0.9% MINIBAG 100 ML IV SCH (15:00)
[2018-06-25] MEDS: WARFARIN 5 MG TABLET PO SCH (15:04)
[2018-06-25] MEDS: SODIUM CHLORIDE FLUSH 0.9% 10 ML SYRINGE IVP PRN (21:15)
[2018-06-25] MEDS: LEVALBUTEROL 1.25 MG/3 ML NEB INH PRN (23:20)
[2018-06-25] MEDS: BENZONATATE 100 MG CAPSULE PO PRN (23:21)
[2018-06-26] MEDS: cefTRIAXone 2 GM in SODIUM CHLORIDE 0.9% MINIBAG 100 ML IV SCH (03:53)
[2018-06-26] MEDS: SODIUM CHLORIDE FLUSH 0.9% 10 ML SYRINGE IVP PRN ×4 (03:54→21:53)
[2018-06-26 05:15] LABS: BASOPHILS % (AUTO) 0.1 %; LYMPHOCYTES # (AUTO) 0.9 10^3/uL (1.5-3.5); LYMPHOCYTES % (AUTO) 7.4 %; MEAN CORPUSCULAR HEMOGLOBIN 30.7 pg (27.0-31.0); MEAN CORPUSCULAR HGB CONC 31.7 g/dL (32.0-36.0); MEAN CORPUSCULAR VOLUME 96.9 fL (81.0-99.0); MEAN PLATELET VOLUME 8.9 fL (7.9-10.8); MONOCYTES # (AUTO) 0.5 10^3/uL (0.0-1.0); MONOCYTES % (AUTO) 4.3 %; NEUTROPHILS # (AUTO) 10.4 10^3/uL (1.5-6.6); NEUTROPHILS % (AUTO) 88.2 %; PLT - PLATELET COUNT 244 10^3/uL (130-450); RED BLOOD COUNT 4.22 10^6/uL (4.20-5.40); RED CELL DISTRIBUTION WIDTH 14.5 % (12.0-15.0); WHITE BLOOD COUNT 11.8 x10^3/uL (4.8-10.8)
[2018-06-26 05:24] LABS: INR 2.8 (0.8-1.2); PT - PROTHROMBIN TIME 30.8 secs (9.9-12.6)
[2018-06-26 05:30] LABS: CALCIUM 8.1 mg/dL (8.5-10.3); CREATININE 0.8 mg/dL (0.4-1.0)
[2018-06-26] MEDS: methylPREDNISolone SUCCINATE 40 MG/ML VIAL IVP SCH ×3 (06:15→21:53)
[2018-06-26] MEDS: IPRATROPIUM/ALBUTEROL 3 ML NEB INH SCH ×4 (07:41→19:13)
[2018-06-26] MEDS: FORMOTEROL FUMARATE NEB 20 MCG/2 ML INH SCH ×2 (07:41→19:13)
[2018-06-26] MEDS: BUDESONIDE 0.5 MG/2 ML NEB INH SCH ×2 (07:42→19:13)
--- NOTE | 2018-06-26 08:32 | PROVIDER PROGRESS NOTE ---
Assessment/Plan - Problem List (1) CAP (community acquired pneumonia) Assessment/Plan: Pt on Ceftriaxone iv and Doxycycline iv, no Zithromax due to interaction potential with Flecainide. Py on Mucinex and is starting to expectorate sputum today. Consider CPT (2) COPD with exacerbation Assessment/Plan: Patient on iv and inhaled steroids, nebs, cough suppressant and expectorant. She was hypoxic at presentation in ER and admitted to ICU for potential BIPAP use. Her BNP was in 700's on admission. Will recheck a BNP to determine if diuresing would also help her pulmonary status and SOB. If BNP elevated, will also order an Echo to evaluate LV and RV contractility. Her last Echo was done here in 01/28 and showed normal LV and RV sizes and normal contractiltiy. Will transfer out of ICU and begin with Physical Therapy. (3) Atrial fibrillation Qualifiers: Atrial fibrillation type: unspecified Qualified Code(s): I48.91 - Unspecified atrial fibrillation Assessment/Plan: Rate is under better control, once pulmonary status started to improve. Pt on Cardizem CD po. She gets Coumadin, dosed at 2 pm daily with a.m. INR blood tests daily. Target INR is 2.0 - 3.0 She is on Flecainide which is used to convert to or maintain sinus rhythm, which it is not doing yet. Will continue Flecainide so it can help convert, now that respiratory status is better, alternatively I will contact her Cardilogist to discuss possibly stopping Flecainide (so that standard therapy such as Zithromax can be used). 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 (5) Hypothyroidism Qualifiers: Hypothyroidism type: acquired Qualified Code(s): E03.9 - Hypothyroidism, unspecified Assessment/Plan: Continue thyroid replacement. - Current Meds Current Meds: Current Medications Generic Name Dose Route Start Last Admin Trade Name Freq PRN Reason Stop Dose Admin Albuterol/Ipratropium 3 ml 06/25/18 07:00 06/26/18 07:41 Duoneb INH 06/26/18 11:01 3 ml RTQID STEFANIE Administration Benzonatate 100 mg 06/25/18 23:11 06/25/18 23:21 Tessalon PO 100 mg TID PRN Administration Cough Budesonide 0.5 mg 06/25/18 07:00 06/26/18 07:42 Pulmicort INH 0.5 mg RTBID STEFANIE Administration Diltiazem HCl 120 mg 06/25/18 09:00 06/25/18 20:38 Cardizem Cd PO 120 mg BID STEFANIE Administration Flecainide Acetate 100 mg 06/25/18 09:00 06/25/18 20:38 Tambocar PO 100 mg BID STEFANIE Administration Formoterol Fumarate 20 mcg 06/25/18 07:00 06/26/18 07:41 Perforomist INH 20 mcg RTBID STEFANIE Administration Guaifenesin 600 mg 06/25/18 09:00 06/25/18 20:38 Mucinex PO 600 mg BID STEFANIE Administration Guaifenesin/Codeine Phosphate 5 ml 06/25/18 05:59 06/25/18 23:08 Robitussin Ac PO 5 ml Q6HR PRN Administration Cough Ceftriaxone Sodium 2 gm/ 100 mls @ 200 mls/hr 06/26/18 04:00 06/26/18 04:43 Sodium Chloride IV Infused Q24H STEFANIE Infusion Doxycycline Hyclate 100 mg/ 100 mls @ 100 mls/hr 06/25/18 12:00 06/25/18 22:36 Sodium Chloride IV Infused BID STEFANIE Infusion Levalbuterol HCl 1.25 mg 06/25/18 05:59 06/25/18 23:20 Xopenex INH 1.25 mg Q4H PRN Administration Shortness of Air/Wheezing Levothyroxine Sodium 25 mcg 06/25/18 09:00 06/25/18 08:10 Synthroid PO 25 mcg DAILY STEFANIE Administration Methylprednisolone 40 mg 06/25/18 07:00 06/26/18 06:15 Solu-Medrol (40mg Vial) IVP 06/26/18 22:01 40 mg TID STEFANIE Administration Polyethylene Glycol 17 gm 06/25/18 09:00 06/25/18 10:30 Miralax PO Not Given DAILY STEFANIE Pravastatin Sodium 40 mg 06/25/18 09:00 06/25/18 08:11 Pravachol PO 40 mg DAILY STEFANIE Administration Saccharomyces Boulardii 250 mg 06/25/18 08:00 06/25/18 17:43 Florastor PO 250 mg BIDWM STEFANIE Administration Sodium Chloride 10 ml 06/25/18 03:35 06/26/18 03:54 Normal Saline Flush 0.9% IVP 10 ml PRN PRN Administration NEEDED PER PROVIDER ORDERS Sodium Chloride 10 ml 06/25/18 09:00 06/25/18 22:28 Normal Saline Flush 0.9% IVP 10 ml [id number] STEFANIE Administration Warfarin Sodium 5 mg 06/25/18 14:00 06/25/18 15:04 Coumadin PO 5 mg QDWARFARIN STEFANIE Administration - Lab Result Fish Bone Diagrams: 06/26/18 04:45 06/26/18 04:45 - Additional Planning My Orders: My Active Orders 06/25/18 15:06 CUL, RESPIRATORY [RM] Urgent 06/26/18 04:30 BNP - B-NATRIURETIC PEPTIDE [IAI] Routine 06/27/18 05:00 PT WITH INR [COAG] DAILYLAB 06/28/18 05:00 PT WITH INR [COAG] DAILYLAB 06/29/18 05:00 PT WITH INR [COAG] DAILYLAB Subjective - Subjective Patient Reports: Feeling Better Objective Vital Signs: Vital Signs - 24 hr 06/25/18 06/25/18 06/25/18 09:00 10:00 10:56 Temperature 36.6 C Heart Rate 96 Heart Rate [ 98 101 H Brachial] Respiratory 21 27 H 28 H Rate Blood Pressure 100/58 L 110/69 [Left Brachial artery] O2 Saturation 93 92 06/25/18 06/25/18 06/25/18 11:00 12:00 13:00 Temperature 36.8 C Heart Rate Heart Rate [ 96 95 90 Brachial] Respiratory 25 H 22 19 Rate Blood Pressure 120/71 110/68 112/69 [Left Brachial artery] O2 Saturation 93 94 92 06/25/18 06/25/18 06/25/18 14:00 15:00 15:35 Temperature Heart Rate 104 H Heart Rate [ 107 H 97 Brachial] Respiratory 24 24 20 Rate Blood Pressure 121/67 128/81 H [Left Brachial artery] O2 Saturation 90 L 91 L 06/25/18 06/25/18 06/25/18 16:00 17:00 18:00 Temperature 36.8 C Heart Rate Heart Rate [ 104 H 100 110 H Brachial] Respiratory 25 H 18 24 Rate Blood Pressure 130/85 H 106/70 112/81 H [Left Brachial artery] O2 Saturation 95 94 90 L 06/25/18 06/25/18 06/25/18 19:09 19:42 19:50 Temperature 36.8 C Heart Rate 96 Heart Rate [ 92 96 Brachial] Respiratory 19 25 H 18 Rate Blood Pressure 120/105 H 117/76 [Left Brachial artery] O2 Saturation 98 94 06/25/18 06/25/18 06/25/18 20:00 21:00 22:00 Temperature Heart Rate Heart Rate [ 99 95 84 Brachial] Respiratory 19 21 20 Rate Blood Pressure 107/57 L 105/69 98/57 L [Left Brachial artery] O2 Saturation 96 93 93 06/25/18 06/25/18 06/26/18 23:00 23:20 00:00 Temperature 36.7 C Heart Rate 101 H Heart Rate [ 94 95 Brachial] Respiratory 21 22 19 Rate Blood Pressure 108/74 109/63 [Left Brachial artery] O2 Saturation 94 92 06/26/18 06/26/18 06/26/18 01:00 01:36 02:00 Temperature 36.7 C Heart Rate 95 Heart Rate [ 85 66 Brachial] Respiratory 14 19 18 Rate Blood Pressure 111/60 94/47 L [Left Brachial artery] O2 Saturation 92 92 90 L 06/26/18 06/26/18 06/26/18 03:00 04:16 07:45 Temperature 36.7 C 36.3 C L Heart Rate Heart Rate [ 79 81 65 Brachial] Respiratory 17 21 19 Rate Blood Pressure 108/71 110/66 95/85 H [Left Brachial artery] O2 Saturation 92 91 L 93 06/26/18 07:46 Temperature Heart Rate 84 Heart Rate [ Brachial] Respiratory 20 Rate Blood Pressure [Left Brachial artery] O2 Saturation Oxygen O2 Source Nasal cannula Oxygen Flow Rate 10 I&O (Last 24 Hrs): Intake and Output Totals x24h 06/24/18 06/25/18 06/26/18 23:59 23:59 23:59 Intake Total 1660 100 Output Total 925 600 Balance 735 -500 - Results Results: Laboratory Results WBC 11.8 x10^3/uL (4.8-10.8) H 06/26/18 04:45 RBC 4.22 10^6/uL (4.20-5.40) 06/26/18 04:45 Hgb 13.0 g/dL (12.0-16.0) 06/26/18 04:45 Hct 40.9 % (37.0-47.0) 06/26/18 04:45 MCV 96.9 fL (81.0-99.0) 06/26/18 04:45 MCH 30.7 pg (27.0-31.0) 06/26/18 04:45 MCHC 31.7 g/dL (32.0-36.0) L 06/26/18 04:45 RDW 14.5 % (12.0-15.0) 06/26/18 04:45 Plt Count 244 10^3/uL (130-450) 06/26/18 04:45 MPV 8.9 fL (7.9-10.8) 06/26/18 04:45 Neut # (Auto) 10.4 10^3/uL (1.5-6.6) H 06/26/18 04:45 Lymph # (Auto) 0.9 10^3/uL (1.5-3.5) L 06/26/18 04:45 Mcminn # (Auto) 0.5 10^3/uL (0.0-1.0) 06/26/18 04:45 Eos # (Auto) 0.0 10^3/uL (0.0-0.7) 06/26/18 04:45 Baso # (Auto) 0.0 10^3/uL (0.0-0.1) 06/26/18 04:45 Absolute Nucleated RBC 0.00 x10^3/uL 06/26/18 04:45 Nucleated RBC % 0.0 /100WBC 06/26/18 04:45 PT 30.8 secs (9.9-12.6) H 06/26/18 04:45 INR 2.8 (0.8-1.2) H 06/26/18 04:45 Sodium 136 mmol/L (135-145) 06/26/18 04:45 Potassium 3.7 mmol/L (3.5-5.0) 06/26/18 04:45 Chloride 96 mmol/L (101-111) L 06/26/18 04:45 Carbon Dioxide 27 mmol/L (21-32) 06/26/18 04:45 Anion Gap 13.0 (6-13) 06/26/18 04:45 BUN 24 mg/dL (6-20) H 06/26/18 04:45 Creatinine 0.8 mg/dL (0.4-1.0) 06/26/18 04:45 Estimated GFR (MDRD) 70 (>89) L 06/26/18 04:45 Glucose 143 mg/dL (70-100) H 06/26/18 04:45 Lactic Acid 1.4 mmol/L (0.5-2.2) 06/25/18 03:35 Calcium 8.1 mg/dL (8.5-10.3) L 06/26/18 04:45 Total Bilirubin 0.7 mg/dL (0.2-1.0) 06/25/18 02:52 AST 29 IU/L (10-42) 06/25/18 02:52 ALT 27 IU/L (10-60) 06/25/18 02:52 Alkaline Phosphatase 66 IU/L (42-121) 06/25/18 02:52 Troponin I 0.04 ng/mL (<0.49) 06/25/18 02:52 B-Natriuretic Peptide 754 pg/mL (5-100) H 06/25/18 02:55 Total Protein 7.3 g/dL (6.7-8.2) 06/25/18 02:52 Albumin 3.8 g/dL (3.2-5.5) 06/25/18 02:52 Globulin 3.5 g/dL (2.1-4.2) 06/25/18 02:52 Albumin/Globulin Ratio 1.1 (1.0-2.2) 06/25/18 02:52 Lipase 23 U/L (22-51) 06/25/18 02:52 Influenza A (Rapid) Negative (Negative) 06/25/18 03:20 Influenza B (Rapid) Negative (Negative) 06/25/18 03:20 MRSA Surveill Initial NEGATIVE (NEGATIVE) 06/25/18 10:57
[2018-06-26] MEDS: SACCHAROMYCES BOULARDII 250 MG CAPSULE PO SCH ×2 (08:43→16:26)
[2018-06-26] MEDS: diltiaZEM CD 120 MG CAPSULE PO SCH ×2 (08:43→20:29)
[2018-06-26] MEDS: DOXYCYCLINE INJ 100 MG in SODIUM CHLORIDE 0.9% MINIBAG 100 ML IV SCH ×2 (08:43→20:29)
[2018-06-26] MEDS: PRAVASTATIN 40 MG TABLET PO SCH (08:43)
[2018-06-26] MEDS: guaiFENesin 600 MG TABLET PO SCH ×2 (08:43→20:29)
[2018-06-26] MEDS: SODIUM CHLORIDE FLUSH 0.9% 10 ML SYRINGE IVP SCH ×2 (08:44→16:27)
[2018-06-26] MEDS: LEVOTHYROXINE 25 MCG TABLET PO SCH (08:44)
[2018-06-26] MEDS: FLECAINIDE 50 MG TABLET PO SCH ×2 (08:44→20:29)
[2018-06-26] MEDS: BENZONATATE 100 MG CAPSULE PO PRN (10:36)
[2018-06-26] MEDS: POLYETHYLENE GLYCOL 3350 17 GM PACKET PO SCH (12:05)
[2018-06-26] MEDS: WARFARIN 5 MG TABLET PO SCH (14:49)
[2018-06-26] MEDS: guaiFENesin/CODEINE 5 ML UDC PO PRN (21:59)
[2018-06-27] MEDS: SODIUM CHLORIDE FLUSH 0.9% 10 ML SYRINGE IVP SCH ×4 (04:24→17:01)
[2018-06-27] MEDS: cefTRIAXone 2 GM in SODIUM CHLORIDE 0.9% MINIBAG 100 ML IV SCH (04:25)
[2018-06-27 04:49] LABS: BASOPHILS % (AUTO) 0.1 %; HGB - HEMOGLOBIN 13.5 g/dL (12.0-16.0); LYMPHOCYTES # (AUTO) 0.8 10^3/uL (1.5-3.5); LYMPHOCYTES % (AUTO) 6.7 %; MEAN CORPUSCULAR VOLUME 93.8 fL (81.0-99.0); MEAN PLATELET VOLUME 8.6 fL (7.9-10.8); MONOCYTES # (AUTO) 0.7 10^3/uL (0.0-1.0); MONOCYTES % (AUTO) 5.2 %; NEUTROPHILS # (AUTO) 11.1 10^3/uL (1.5-6.6); PLT - PLATELET COUNT 301 10^3/uL (130-450); RED BLOOD COUNT 4.34 10^6/uL (4.20-5.40); RED CELL DISTRIBUTION WIDTH 14.6 % (12.0-15.0); WHITE BLOOD COUNT 12.6 x10^3/uL (4.8-10.8)
[2018-06-27 04:51] LABS: CALCIUM 8.1 mg/dL (8.5-10.3); CREATININE 0.8 mg/dL (0.4-1.0)
[2018-06-27 05:05] LABS: INR 4.2 (0.8-1.2); PT - PROTHROMBIN TIME 46.7 secs (9.9-12.6)
[2018-06-27] MEDS: FORMOTEROL FUMARATE NEB 20 MCG/2 ML INH SCH ×2 (07:18→19:56)
[2018-06-27] MEDS: IPRATROPIUM/ALBUTEROL 3 ML NEB INH SCH ×4 (07:18→19:56)
[2018-06-27] MEDS: BUDESONIDE 0.5 MG/2 ML NEB INH SCH ×2 (07:18→19:56)
[2018-06-27] MEDS: PRAVASTATIN 40 MG TABLET PO SCH (10:25)
[2018-06-27] MEDS: LEVOTHYROXINE 25 MCG TABLET PO SCH (10:25)
[2018-06-27] MEDS: guaiFENesin 600 MG TABLET PO SCH ×2 (10:25→21:16)
[2018-06-27] MEDS: SACCHAROMYCES BOULARDII 250 MG CAPSULE PO SCH ×2 (10:25→17:01)
[2018-06-27] MEDS: FLECAINIDE 50 MG TABLET PO SCH (10:25)
[2018-06-27] MEDS: diltiaZEM CD 120 MG CAPSULE PO SCH ×2 (10:26→21:16)
[2018-06-27] MEDS: DOXYCYCLINE INJ 100 MG in SODIUM CHLORIDE 0.9% MINIBAG 100 ML IV SCH ×2 (10:27→21:16)
[2018-06-27] MEDS: POLYETHYLENE GLYCOL 3350 17 GM PACKET PO SCH (10:35)
--- NOTE | 2018-06-27 10:41 | PROVIDER PROGRESS NOTE ---
Assessment/Plan - Problem List (1) CAP (community acquired pneumonia) Assessment/Plan: No bacteria noted by sputum or blood cultures. She remains on empiric iv antibiotics and management of the phlegm and SOB as below. (2) Yeast cells and fungal elements present on diagnostic testing Assessment/Plan: Her sputum culture returned (+) for yeast species, not further defined. Will start Diflucan po, 200 mg today, then 100 mg po daily for 6 more days (for oropharyngeal Sandrita possiblity). (3) COPD with exacerbation Assessment/Plan: She is slightly better, able to converse without SOB. She was able to describe today for me her COPD: it was moderate by PFTs done many years ago, and she has been on home O2 at 3L n.c. 24/7 for a long time and has a Meat Smoker at [facility]. At her best, she ambulates with a quad walker in the house and can cook and do dishes. She needs help taking a shower, is connected to the O2 while taking a shower and the daughter assists her. With all ADLs it takes her a while to recover from being SOB. Continue iv steroids, nebs, Mucinex, Acapella (suggested by RT yesterday) or CPT, and supplemental O2 at 11L via oximizer. Will order PT to start today. (4) Atrial fibrillation Qualifiers: Atrial fibrillation type: unspecified Qualified Code(s): I48.91 - Unspecified atrial fibrillation Assessment/Plan: The heart rate has been under good control, but she has been in Afib since admission, and she apparently was in NSR on the Flecainide at each Cardiology visit, which is every 6 mos (last one was in 01/29), per the patient and daughter. I spoke to her Supervisor Commissary Production, Dr Nehemiah Lancaster at [facility] today, regarding stopping the Flecainide which is not maintaining NSR and he agreed. I told the patient and daughter in the room and they were happy since they have requested that of the Supervisor Commissary Production in the past, due to the risk of sudden , and up until now he wanted it continued. Continue telemetry. Discontinue Flecainide. Watch INR daily, to dose Coumadin (today Coumadin on hold for INR of 4). 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 She is on her replacement meds for acquired hypothyroidism. Will assess with a TSH level. (6) Obesity (BMI 30.0-34.9) Assessment/Plan: Probably multifactorial: immobility, diet and hypothyroid. - Current Meds Current Meds: Current Medications Generic Name Dose Route Start Last Admin Trade Name Freq PRN Reason Stop Dose Admin Hydrocodone Bitart/Acetaminophen 1 tab 06/25/18 03:52 06/27/18 00:38 [place] 5/325 PO 1 tab QID PRN Administration PAIN Albuterol/Ipratropium 3 ml 06/26/18 15:00 06/27/18 07:18 Duoneb INH 3 ml RTQID STEFANIE Administration Benzonatate 100 mg 06/25/18 23:11 06/26/18 10:36 Tessalon PO 100 mg TID PRN Administration Cough Budesonide 0.5 mg 06/25/18 07:00 06/27/18 07:18 Pulmicort INH 0.5 mg RTBID STEFANIE Administration Diltiazem HCl 120 mg 06/25/18 09:00 06/27/18 10:26 Cardizem Cd PO 120 mg BID STEFANIE Administration Flecainide Acetate 100 mg 06/25/18 09:00 06/27/18 10:25 Tambocar PO 100 mg BID STEFANIE Administration Formoterol Fumarate 20 mcg 06/25/18 07:00 06/27/18 07:18 Perforomist INH 20 mcg RTBID STEFANIE Administration Guaifenesin 600 mg 06/25/18 09:00 06/27/18 10:25 Mucinex PO 600 mg BID STEFANIE Administration Guaifenesin/Codeine Phosphate 5 ml 06/25/18 05:59 06/26/18 21:59 Robitussin Ac PO 5 ml Q6HR PRN Administration Cough Ceftriaxone Sodium 2 gm/ 100 mls @ 200 mls/hr 06/26/18 04:00 06/27/18 05:12 Sodium Chloride IV Infused Q24H STEFANIE Infusion Doxycycline Hyclate 100 mg/ 100 mls @ 100 mls/hr 06/25/18 12:00 06/27/18 10:27 Sodium Chloride IV 100 mls/hr BID STEFANIE Administration Levalbuterol HCl 1.25 mg 06/25/18 05:59 06/25/18 23:20 Xopenex INH 1.25 mg Q4H PRN Administration Shortness of Air/Wheezing Levothyroxine Sodium 25 mcg 06/25/18 09:00 06/27/18 10:25 Synthroid PO 25 mcg DAILY STEFANIE Administration Polyethylene Glycol 17 gm 06/25/18 09:00 06/27/18 10:35 Miralax PO Not Given DAILY STEFANIE Pravastatin Sodium 40 mg 06/25/18 09:00 06/27/18 10:25 Pravachol PO 40 mg DAILY STEFANIE Administration Saccharomyces Boulardii 250 mg 06/25/18 08:00 06/27/18 10:25 Florastor PO 250 mg BIDWM STEFANIE Administration Sodium Chloride 10 ml 06/25/18 03:35 06/26/18 21:53 Normal Saline Flush 0.9% IVP 10 ml PRN PRN Administration NEEDED PER PROVIDER ORDERS Sodium Chloride 10 ml 06/25/18 09:00 06/27/18 10:26 Normal Saline Flush 0.9% IVP 10 ml [id number],[id number],1700 STEFANIE Administration Warfarin Sodium 5 mg 06/25/18 14:00 06/26/18 14:49 Coumadin PO 5 mg QDWARFARIN STEFANIE Administration - Lab Result Fish Bone Diagrams: 06/27/18 04:35 06/27/18 04:35 - Additional Planning My Orders: My Active Orders 06/26/18 11:47 Nebulizer/MDI Tx. [RC] .qid q4 prn 06/26/18 12:18 Telemetry- [RC] Q4HR 06/26/18 15:00 Ipratropium/Albuterol [Duoneb] 3 ml INH RTQID 06/27/18 05:42 Acapella (Flutter Valve Device [RC] .tid 06/28/18 05:00 PT WITH INR [COAG] DAILYLAB 06/29/18 05:00 PT WITH INR [COAG] DAILYLAB Objective Vital Signs: Vital Signs - 24 hr 06/26/18 06/26/18 06/26/18 11:08 11:32 15:29 Temperature Heart Rate 92 85 Heart Rate [ 92 Brachial] Respiratory 18 19 22 Rate Blood Pressure [Left Brachial artery] O2 Saturation 99 06/26/18 06/26/18 06/26/18 15:54 18:40 19:15 Temperature 36.5 C 37.0 C Heart Rate 80 Heart Rate [ 71 80 Brachial] Respiratory 20 20 20 Rate Blood Pressure 121/84 H 124/58 L [Left Brachial artery] O2 Saturation 93 93 06/26/18 06/27/18 06/27/18 20:27 00:00 04:28 Temperature 36.9 C 36.6 C Heart Rate Heart Rate [ 88 85 86 Brachial] Respiratory 20 20 Rate Blood Pressure 122/76 128/64 139/75 H [Left Brachial artery] O2 Saturation 98 94 06/27/18 06/27/18 07:20 07:47 Temperature 36.4 C L Heart Rate 82 Heart Rate [ 91 Brachial] Respiratory 20 20 Rate Blood Pressure 136/76 H [Left Brachial artery] O2 Saturation 93 Oxygen O2 Source hfnc Oxygen Flow Rate 10 I&O (Last 24 Hrs): Intake and Output Totals x24h 06/25/18 06/26/18 06/27/18 23:59 23:59 23:59 Intake Total 1660 1695 590 Output Total 925 600 Balance 735 1095 590 General: Alert, Oriented x3 HEENT: Mucous membr. moist/pink Neck: Supple, No JVD Neuro: Non Focal Cardiovascular: No murmurs, Other (Irreg) Respiratory: Other (No wheezing, scattered rales) Abdomen: Normal bowel sounds, Soft Extremities: Other (Trace edema) - Results Results: Laboratory Results WBC 12.6 x10^3/uL (4.8-10.8) H 06/27/18 04:35 RBC 4.34 10^6/uL (4.20-5.40) 06/27/18 04:35 Hgb 13.5 g/dL (12.0-16.0) 06/27/18 04:35 Hct 40.7 % (37.0-47.0) 06/27/18 04:35 MCV 93.8 fL (81.0-99.0) 06/27/18 04:35 MCH 31.0 pg (27.0-31.0) 06/27/18 04:35 MCHC 33.0 g/dL (32.0-36.0) 06/27/18 04:35 RDW 14.6 % (12.0-15.0) 06/27/18 04:35 Plt Count 301 10^3/uL (130-450) 06/27/18 04:35 MPV 8.6 fL (7.9-10.8) 06/27/18 04:35 Neut # (Auto) 11.1 10^3/uL (1.5-6.6) H 06/27/18 04:35 Lymph # (Auto) 0.8 10^3/uL (1.5-3.5) L 06/27/18 04:35 [place] # (Auto) 0.7 10^3/uL (0.0-1.0) 06/27/18 04:35 Eos # (Auto) 0.0 10^3/uL (0.0-0.7) 06/27/18 04:35 Baso # (Auto) 0.0 10^3/uL (0.0-0.1) 06/27/18 04:35 Absolute Nucleated RBC 0.00 x10^3/uL 06/27/18 04:35 Nucleated RBC % 0.0 /100WBC 06/27/18 04:35 PT 46.7 secs (9.9-12.6) H 06/27/18 04:35 INR 4.2 (0.8-1.2) H 06/27/18 04:35 Sodium 135 mmol/L (135-145) 06/27/18 04:35 Potassium 3.9 mmol/L (3.5-5.0) 06/27/18 04:35 Chloride 96 mmol/L (101-111) L 06/27/18 04:35 Carbon Dioxide 29 mmol/L (21-32) 06/27/18 04:35 Anion Gap 10.0 (6-13) 06/27/18 04:35 BUN 27 mg/dL (6-20) H 06/27/18 04:35 Creatinine 0.8 mg/dL (0.4-1.0) 06/27/18 04:35 Estimated GFR (MDRD) 70 (>89) L 06/27/18 04:35 Glucose 146 mg/dL (70-100) H 06/27/18 04:35 Lactic Acid 1.4 mmol/L (0.5-2.2) 06/25/18 03:35 Calcium 8.1 mg/dL (8.5-10.3) L 06/27/18 04:35 Total Bilirubin 0.7 mg/dL (0.2-1.0) 06/25/18 02:52 AST 29 IU/L (10-42) 06/25/18 02:52 ALT 27 IU/L (10-60) 06/25/18 02:52 Alkaline Phosphatase 66 IU/L (42-121) 06/25/18 02:52 Troponin I 0.04 ng/mL (<0.49) 06/25/18 02:52 B-Natriuretic Peptide 385 pg/mL (5-100) H 06/26/18 04:45 Total Protein 7.3 g/dL (6.7-8.2) 06/25/18 02:52 Albumin 3.8 g/dL (3.2-5.5) 06/25/18 02:52 Globulin 3.5 g/dL (2.1-4.2) 06/25/18 02:52 Albumin/Globulin Ratio 1.1 (1.0-2.2) 06/25/18 02:52 Lipase 23 U/L (22-51) 06/25/18 02:52 Influenza A (Rapid) Negative (Negative) 06/25/18 03:20 Influenza B (Rapid) Negative (Negative) 06/25/18 03:20 MRSA Surveill Initial NEGATIVE (NEGATIVE) 06/25/18 10:57
[2018-06-27] MEDS ORDERED: FLUCONAZOLE 100 MG TABLET PO ONE (11:00)
[2018-06-27] MEDS: WARFARIN 5 MG TABLET PO SCH (12:50)
--- NOTE | 2018-06-27 14:02 | ADVANCE CARE PLANNING NOTE ---
Advance Care Planning - Date/Time Date: 06/27/18 Time: 11:30 - Purpose of encounter Text: To establish her wishes regarding aggressiveness of medical care, level of knowledge about her COPD and other medical conditions (Afib and osteoarthritis) - Parties in attendance Parties in attendance: I spoke to the patient in her room, sitting in a chair and daughter at bedside. - Decisional capacity Decisional capacity of: She has full decisional capacity. - Subjective/Patient's story Subjective/Patient's story: She was able to describe today for me her COPD: it was moderate by PFTs done many years ago, and she has been on home O2 at 3L n.c. 04/12 for a long time and has a Health Care Specialist at [facility] [place]. At her best, she ambulates with a quad walker in the house and can cook and do dishes. She needs help taking a shower, is connected to the O2 while taking a shower and the daughter assists her. With all ADLs it takes her a while to recover from being SOB. Her is getting demented and their daughter moved in (when her own was doing poorly and subsequently ) and is now the caregiver of the patient and her father. - Objective/Medical story Objective/Medical Story: The patient is adnitted with CAP and a COPD exacerbation. Her COPD is from smoking. She is on home O2 04/12. and has a Health Care Specialist at [facility], [place]. She has had very slow improvement in respiratory status this admission and is still requiring 11 L o2 supplemental by oximizer. She has never had an exacerbation like this or needed steroids. She understands that she will have a very slow recovery to her baseline, already impaired, ADL functions. - Goals of Care Goals of care determinations: She wants to return home to live but is interested in SNF rehab ater this [facility], for muscle strengthening. She is a candidate for Pulmonary Rehab at the [facility] here and she remembers attending Pulm Rehab here a long time ago, which did help her. She discussed her Code Status with the admitting Ship Rigger Apprentice, but she has never signed a POLST. - Plan Plan: Continue full medical management of her conditions, but allow natural if she should have a Cardio-pulmonary arrest. Intubation will be: DNI. She was given a POLST form by me today. - Code Status Code Status: Do Not Attempt Resuscitation - Time Spent on Advance Care Planning Time spent on advance care plannin
[2018-06-27] MEDS: predniSONE 20 MG TABLET PO SCH (19:52)
[2018-06-27] MEDS: SODIUM CHLORIDE FLUSH 0.9% 10 ML SYRINGE IVP PRN (23:09)
[2018-06-28] MEDS: SODIUM CHLORIDE FLUSH 0.9% 10 ML SYRINGE IVP SCH ×3 (01:41→16:59)
[2018-06-28] MEDS: SODIUM CHLORIDE FLUSH 0.9% 10 ML SYRINGE IVP PRN ×2 (04:43→21:25)
[2018-06-28] MEDS: cefTRIAXone 2 GM in SODIUM CHLORIDE 0.9% MINIBAG 100 ML IV SCH (04:43)
[2018-06-28 06:12] LABS: PT - PROTHROMBIN TIME 50.2 secs (9.9-12.6)
[2018-06-28 06:39] LABS: INR 4.6 (0.8-1.2)
[2018-06-28] MEDS: WARFARIN 5 MG TABLET PO SCH (07:18)
[2018-06-28] MEDS: BUDESONIDE 0.5 MG/2 ML NEB INH SCH ×2 (07:34→19:06)
[2018-06-28] MEDS: IPRATROPIUM/ALBUTEROL 3 ML NEB INH SCH ×4 (07:34→19:06)
[2018-06-28] MEDS: FORMOTEROL FUMARATE NEB 20 MCG/2 ML INH SCH ×2 (07:34→19:06)
[2018-06-28] MEDS: SACCHAROMYCES BOULARDII 250 MG CAPSULE PO SCH ×2 (09:03→16:59)
[2018-06-28] MEDS: LEVOTHYROXINE 25 MCG TABLET PO SCH (09:03)
[2018-06-28] MEDS: predniSONE 20 MG TABLET PO SCH (09:04)
[2018-06-28] MEDS: guaiFENesin 600 MG TABLET PO SCH ×2 (09:05→21:24)
[2018-06-28] MEDS: FLUCONAZOLE 100 MG TABLET PO SCH (09:05)
[2018-06-28] MEDS: DOXYCYCLINE INJ 100 MG in SODIUM CHLORIDE 0.9% MINIBAG 100 ML IV SCH ×2 (09:05→21:24)
[2018-06-28] MEDS: PRAVASTATIN 40 MG TABLET PO SCH (09:05)
[2018-06-28] MEDS: diltiaZEM CD 120 MG CAPSULE PO SCH ×2 (09:05→21:24)
[2018-06-28] MEDS: POLYETHYLENE GLYCOL 3350 17 GM PACKET PO SCH (13:05)
--- NOTE | 2018-06-28 16:02 | PROVIDER PROGRESS NOTE ---
Assessment/Plan - Problem List (1) CAP (community acquired pneumonia) Assessment/Plan: Patient is expectorating the most today, since admission. Plan a 7 day course of treatment. Will transition to po antibiotics tomorrow. (2) Yeast cells and fungal elements present on diagnostic testing Assessment/Plan: Planning a 7 day course of treatment, to be completed after DCh. (3) COPD with exacerbation Assessment/Plan: She is slowly improving, as noted by slowly decreasing supplemental O2 needs. She was able to do PT today, her limiting factor is her desaturations, not muscle strength, per Physical Therapist discussion with me today. She will not need transfer to a SNF after DCh. Continue nebs, expectorants and steroids. Possible DCh in 1-2 days. (4) Atrial fibrillation Qualifiers: Atrial fibrillation type: persistent Qualified Code(s): I48.1 - Persistent atrial fibrillation Assessment/Plan: Her Flecainide has been off for 24 hours, after discussion with her Airveyor Operator yesterday, since it is not maintaining NSRRThe overall rate, however is not higher. Continue Cardizem for rate control and Coumadin for stroke prevention. (5) Hypothyroidism Qualifiers: Hypothyroidism type: acquired Qualified Code(s): E03.9 - Hypothyroidism, unspecified Assessment/Plan: She is on replacement thyroid medication, her TSH was in a proper range, indicating good dose. - Current Meds Current Meds: Current Medications Generic Name Dose Route Start Last Admin Trade Name Freq PRN Reason Stop Dose Admin Hydrocodone Bitart/Acetaminophen 1 tab 06/25/18 03:52 06/27/18 00:38 [place] 5/325 PO 1 tab QID PRN Administration PAIN Albuterol/Ipratropium 3 ml 06/26/18 15:00 06/28/18 15:08 Duoneb INH 3 ml RTQID STEFANIE Administration Benzonatate 100 mg 06/25/18 23:11 06/26/18 10:36 Tessalon PO 100 mg TID PRN Administration Cough Budesonide 0.5 mg 06/25/18 07:00 06/28/18 07:34 Pulmicort INH 0.5 mg RTBID STEFANIE Administration Diltiazem HCl 120 mg 06/25/18 09:00 06/28/18 09:05 Cardizem Cd PO 120 mg BID STEFANIE Administration Fluconazole 100 mg 06/28/18 09:00 06/28/18 09:05 Diflucan PO 07/03/18 12:00 100 mg DAILY STEFANIE Administration Formoterol Fumarate 20 mcg 06/25/18 07:00 06/28/18 07:34 Perforomist INH 20 mcg RTBID STEFANIE Administration Guaifenesin 600 mg 06/25/18 09:00 06/28/18 09:05 Mucinex PO 600 mg BID STEFANIE Administration Guaifenesin/Codeine Phosphate 5 ml 06/25/18 05:59 06/26/18 21:59 Robitussin Ac PO 5 ml Q6HR PRN Administration Cough Ceftriaxone Sodium 2 gm/ 100 mls @ 200 mls/hr 06/26/18 04:00 06/28/18 06:57 Sodium Chloride IV Infused Q24H STEFANIE Infusion Doxycycline Hyclate 100 mg/ 100 mls @ 100 mls/hr 06/25/18 12:00 06/28/18 10:21 Sodium Chloride IV Infused BID STEFANIE Infusion Levalbuterol HCl 1.25 mg 06/25/18 05:59 06/25/18 23:20 Xopenex INH 1.25 mg Q4H PRN Administration Shortness of Air/Wheezing Levothyroxine Sodium 25 mcg 06/25/18 09:00 06/28/18 09:03 Synthroid PO 25 mcg DAILY STEFANIE Administration Polyethylene Glycol 17 gm 06/25/18 09:00 06/28/18 13:05 Miralax PO 17 gm DAILY STEFANIE Administration Pravastatin Sodium 40 mg 06/25/18 09:00 06/28/18 09:05 Pravachol PO 40 mg DAILY STEFANIE Administration Prednisone 20 mg 06/27/18 18:24 06/28/18 09:04 Deltasone PO 20 mg DAILYWM STEFANIE Administration Saccharomyces Boulardii 250 mg 06/25/18 08:00 06/28/18 09:03 Florastor PO 250 mg BIDWM STEFANIE Administration Sodium Chloride 10 ml 06/25/18 03:35 06/28/18 04:43 Normal Saline Flush 0.9% IVP 10 ml PRN PRN Administration NEEDED PER PROVIDER ORDERS Sodium Chloride 10 ml 06/25/18 09:00 06/28/18 09:05 Normal Saline Flush 0.9% IVP 10 ml 0100,0900,1700 STEFANIE Administration Warfarin Sodium 5 mg 06/25/18 14:00 06/28/18 07:18 Coumadin PO Not Given QDWARFARIN STEFANIE - Lab Result Fish Bone Diagrams: 06/27/18 04:35 06/27/18 04:35 - Additional Planning My Orders: My Active Orders 06/27/18 18:24 predniSONE [Deltasone] 20 mg PO DAILYWM 06/28/18 09:00 Fluconazole [Diflucan] 100 mg PO DAILY 06/29/18 05:00 PT WITH INR [COAG] DAILYLAB Subjective - Subjective Patient Reports: Feeling Better, Cough Objective Vital Signs: Vital Signs - 24 hr 06/27/18 06/27/18 06/28/18 19:57 21:00 01:41 Temperature 36.8 C Heart Rate 83 Heart Rate [ 90 85 Brachial] Heart Rate [ Sitting] Respiratory 20 20 20 Rate Blood Pressure 116/63 143/71 H [Left Brachial artery] Blood Pressure [Right Brachial artery] Blood Pressure [Sitting] O2 Saturation 97 95 O2 Saturation [ Without Activity] 06/28/18 06/28/18 06/28/18 05:03 07:40 11:23 Temperature 36.7 C Heart Rate 76 79 Heart Rate [ 78 Brachial] Heart Rate [ Sitting] Respiratory 20 20 20 Rate Blood Pressure [Left Brachial artery] Blood Pressure 132/83 H [Right Brachial artery] Blood Pressure [Sitting] O2 Saturation 95 O2 Saturation [ Without Activity] 06/28/18 06/28/18 06/28/18 12:50 13:52 15:12 Temperature 36.6 C Heart Rate 78 Heart Rate [ 82 Brachial] Heart Rate [ 84 Sitting] Respiratory 18 22 Rate Blood Pressure [Left Brachial artery] Blood Pressure 129/61 [Right Brachial artery] Blood Pressure 132/65 H [Sitting] O2 Saturation 95 O2 Saturation [ 92 Without Activity] Oxygen O2 Source [Without Activity] Oxymizer O2 Source Oxymizer Oxygen Flow Rate 10 I&O (Last 24 Hrs): Intake and Output Totals x24h 06/26/18 06/27/18 06/28/18 23:59 23:59 23:59 Intake Total 1695 2420 680 Output Total 600 Balance 1095 2420 680 General: Alert, Oriented x3 HEENT: Mucous membr. moist/pink, Other (On O2 n.c., R eye exophthalmous) Neck: Supple Neuro: Non Focal Cardiovascular: No murmurs Respiratory: Other (Diminished (tight) and scattered wheezes) Abdomen: Soft, Other (Obese) Extremities: Other (Trace edema R>L) - Results Results: Laboratory Results WBC 12.6 x10^3/uL (4.8-10.8) H 06/27/18 04:35 RBC 4.34 10^6/uL (4.20-5.40) 06/27/18 04:35 Hgb 13.5 g/dL (12.0-16.0) 06/27/18 04:35 Hct 40.7 % (37.0-47.0) 06/27/18 04:35 MCV 93.8 fL (81.0-99.0) 06/27/18 04:35 MCH 31.0 pg (27.0-31.0) 06/27/18 04:35 MCHC 33.0 g/dL (32.0-36.0) 06/27/18 04:35 RDW 14.6 % (12.0-15.0) 06/27/18 04:35 Plt Count 301 10^3/uL (130-450) 06/27/18 04:35 MPV 8.6 fL (7.9-10.8) 06/27/18 04:35 Neut # (Auto) 11.1 10^3/uL (1.5-6.6) H 06/27/18 04:35 Lymph # (Auto) 0.8 10^3/uL (1.5-3.5) L 06/27/18 04:35 [place] # (Auto) 0.7 10^3/uL (0.0-1.0) 06/27/18 04:35 Eos # (Auto) 0.0 10^3/uL (0.0-0.7) 06/27/18 04:35 Baso # (Auto) 0.0 10^3/uL (0.0-0.1) 06/27/18 04:35 Absolute Nucleated RBC 0.00 x10^3/uL 06/27/18 04:35 Nucleated RBC % 0.0 /100WBC 06/27/18 04:35 PT 50.2 secs (9.9-12.6) H 06/28/18 05:00 INR 4.6 (0.8-1.2) H* 06/28/18 05:00 Sodium 135 mmol/L (135-145) 06/27/18 04:35 Potassium 3.9 mmol/L (3.5-5.0) 06/27/18 04:35 Chloride 96 mmol/L (101-111) L 06/27/18 04:35 Carbon Dioxide 29 mmol/L (21-32) 06/27/18 04:35 Anion Gap 10.0 (6-13) 06/27/18 04:35 BUN 27 mg/dL (6-20) H 06/27/18 04:35 Creatinine 0.8 mg/dL (0.4-1.0) 06/27/18 04:35 Estimated GFR (MDRD) 70 (>89) L 06/27/18 04:35 Glucose 146 mg/dL (70-100) H 06/27/18 04:35 Lactic Acid 1.4 mmol/L (0.5-2.2) 06/25/18 03:35 Calcium 8.1 mg/dL (8.5-10.3) L 06/27/18 04:35 Total Bilirubin 0.7 mg/dL (0.2-1.0) 06/25/18 02:52 AST 29 IU/L (10-42) 06/25/18 02:52 ALT 27 IU/L (10-60) 06/25/18 02:52 Alkaline Phosphatase 66 IU/L (42-121) 06/25/18 02:52 Troponin I 0.04 ng/mL (<0.49) 06/25/18 02:52 B-Natriuretic Peptide 385 pg/mL (5-100) H 06/26/18 04:45 Total Protein 7.3 g/dL (6.7-8.2) 06/25/18 02:52 Albumin 3.8 g/dL (3.2-5.5) 06/25/18 02:52 Globulin 3.5 g/dL (2.1-4.2) 06/25/18 02:52 Albumin/Globulin Ratio 1.1 (1.0-2.2) 06/25/18 02:52 Lipase 23 U/L (22-51) 06/25/18 02:52 TSH 0.57 uIU/mL (0.34-5.60) 06/28/18 05:00 Influenza A (Rapid) Negative (Negative) 06/25/18 03:20 Influenza B (Rapid) Negative (Negative) 06/25/18 03:20 MRSA Surveill Initial NEGATIVE (NEGATIVE) 06/25/18 10:57
[2018-06-29] MEDS: SODIUM CHLORIDE FLUSH 0.9% 10 ML SYRINGE IVP SCH ×4 (00:31→23:39)
[2018-06-29] MEDS: cefTRIAXone 2 GM in SODIUM CHLORIDE 0.9% MINIBAG 100 ML IV SCH (03:50)
[2018-06-29] MEDS: SODIUM CHLORIDE FLUSH 0.9% 10 ML SYRINGE IVP PRN (03:51)
[2018-06-29] MEDS: LEVALBUTEROL 1.25 MG/3 ML NEB INH PRN (04:04)
[2018-06-29 06:04] LABS: INR 4.1 (0.8-1.2); PT - PROTHROMBIN TIME 45.4 secs (9.9-12.6)
[2018-06-29] MEDS: WARFARIN 5 MG TABLET PO SCH (07:13)
[2018-06-29] MEDS: IPRATROPIUM/ALBUTEROL 3 ML NEB INH SCH ×4 (07:34→19:22)
[2018-06-29] MEDS: FORMOTEROL FUMARATE NEB 20 MCG/2 ML INH SCH ×2 (07:34→19:21)
[2018-06-29] MEDS: BUDESONIDE 0.5 MG/2 ML NEB INH SCH ×2 (07:36→19:21)
[2018-06-29] MEDS: predniSONE 20 MG TABLET PO SCH (08:39)
[2018-06-29] MEDS: DOXYCYCLINE INJ 100 MG in SODIUM CHLORIDE 0.9% MINIBAG 100 ML IV SCH (08:39)
[2018-06-29] MEDS: diltiaZEM CD 120 MG CAPSULE PO SCH ×2 (08:39→20:37)
[2018-06-29] MEDS: SACCHAROMYCES BOULARDII 250 MG CAPSULE PO SCH ×2 (08:39→17:45)
[2018-06-29] MEDS: FLUCONAZOLE 100 MG TABLET PO SCH (08:40)
[2018-06-29] MEDS: LEVOTHYROXINE 25 MCG TABLET PO SCH (08:41)
[2018-06-29] MEDS: guaiFENesin 600 MG TABLET PO SCH ×2 (08:41→20:37)
[2018-06-29] MEDS: PRAVASTATIN 40 MG TABLET PO SCH (08:41)
[2018-06-29] MEDS: POLYETHYLENE GLYCOL 3350 17 GM PACKET PO SCH (08:41)
--- NOTE | 2018-06-29 15:01 | PROVIDER PROGRESS NOTE ---
Assessment/Plan - Problem List (1) CAP (community acquired pneumonia) Assessment/Plan: transition iv antibiotics to Vibramycin today. Plan to [facility] her on this (2) Yeast cells and fungal elements present on diagnostic testing Assessment/Plan: Continue Diflucan po pills, and at [facility] (3) COPD with exacerbation Assessment/Plan: Still requires O2 at 6L per oximizer (her baseline ais 3L at home), and still making alot of sputum Continue her nebs, and po Prednisone (and at [facility]). I spent time with the daughter (that lives with her), reviewing the meds planned for [facility] to manage her COPD. Will obtain an RT exercise oximetry test tomorrow for poss [facility] home tomorrow. She will also be referred to Pulm Rehab here at the [facility] as an outpatient. (4) Atrial fibrillation Qualifiers: Atrial fibrillation type: persistent Qualified Code(s): I48.1 - Persistent atrial fibrillation Assessment/Plan: HR is controlled on Cardizem CD. Flecainide has been stopped and she will not resume it at [facility]. She will see her Automotive Tire Worker in mid-July for further management of persistent Afib. (5) Hypothyroidism Qualifiers: Hypothyroidism type: acquired Qualified Code(s): E03.9 - Hypothyroidism, unspecified Assessment/Plan: Pt on her thyroid replacement while here. (6) Insomnia Assessment/Plan: Worsened insomnia by steroids. Will give a sleeping aid tonight, discussed with patient and daughter. - Current Meds Current Meds: Current Medications Generic Name Dose Route Start Last Admin Trade Name Freq PRN Reason Stop Dose Admin Hydrocodone Bitart/Acetaminophen 1 tab 06/25/18 03:52 06/27/18 00:38 [place] 5/325 PO 1 tab QID PRN Administration PAIN Albuterol/Ipratropium 3 ml 06/26/18 15:00 06/29/18 11:13 Duoneb INH 3 ml RTQID STEFANIE Administration Benzonatate 100 mg 06/25/18 23:11 06/26/18 10:36 Tessalon PO 100 mg TID PRN Administration Cough Budesonide 0.5 mg 06/25/18 07:00 06/29/18 07:36 Pulmicort INH 0.5 mg RTBID STEFANIE Administration Diltiazem HCl 120 mg 06/25/18 09:00 06/29/18 08:39 Cardizem Cd PO 120 mg BID STEFANIE Administration Fluconazole 100 mg 06/28/18 09:00 06/29/18 08:40 Diflucan PO 07/03/18 12:00 100 mg DAILY STEFANIE Administration Formoterol Fumarate 20 mcg 06/25/18 07:00 06/29/18 07:34 Perforomist INH 20 mcg RTBID STEFANIE Administration Guaifenesin 600 mg 06/25/18 09:00 06/29/18 08:41 Mucinex PO 600 mg BID STEFANIE Administration Guaifenesin/Codeine Phosphate 5 ml 06/25/18 05:59 06/26/18 21:59 Robitussin Ac PO 5 ml Q6HR PRN Administration Cough Ceftriaxone Sodium 2 gm/ 100 mls @ 200 mls/hr 06/26/18 04:00 06/29/18 04:28 Sodium Chloride IV Infused Q24H STEFANIE Infusion Doxycycline Hyclate 100 mg/ 100 mls @ 100 mls/hr 06/25/18 12:00 06/29/18 08:39 Sodium Chloride IV 100 mls/hr BID STEFANIE Administration Levalbuterol HCl 1.25 mg 06/25/18 05:59 06/29/18 04:04 Xopenex INH 1.25 mg Q4H PRN Administration Shortness of Air/Wheezing Levothyroxine Sodium 25 mcg 06/25/18 09:00 06/29/18 08:41 Synthroid PO 25 mcg DAILY STEFANIE Administration Polyethylene Glycol 17 gm 06/25/18 09:00 06/29/18 08:41 Miralax PO 17 gm DAILY STEFANIE Administration Pravastatin Sodium 40 mg 06/25/18 09:00 06/29/18 08:41 Pravachol PO 40 mg DAILY STEFANIE Administration Prednisone 20 mg 06/27/18 18:24 06/29/18 08:39 Deltasone PO 20 mg DAILYWM STEFANIE Administration Saccharomyces Boulardii 250 mg 06/25/18 08:00 06/29/18 08:39 Florastor PO 250 mg BIDWM STEFANIE Administration Sodium Chloride 10 ml 06/25/18 03:35 06/29/18 03:51 Normal Saline Flush 0.9% IVP 10 ml PRN PRN Administration NEEDED PER PROVIDER ORDERS Sodium Chloride 10 ml 06/25/18 09:00 06/29/18 08:41 Normal Saline Flush 0.9% IVP 10 ml [id number] [facility] Administration Warfarin Sodium 5 mg 06/25/18 14:00 06/29/18 07:13 Coumadin PO Not Given QDWARFARIN [facility] - Lab Result Fish Bone Diagrams: 06/27/18 04:35 06/27/18 04:35 Subjective - Subjective Patient Reports: Cough ("coughed up alot of sputum after morning inhaler treatment" and feels better), Fatigue, Other (Has worse pain due to inability to sleep, bed uncomfortable and feeling fidgety on steroids) Objective Vital Signs: Vital Signs - 24 hr 06/28/18 06/28/18 06/28/18 15:12 15:58 19:07 Temperature 36.6 C Heart Rate 78 88 Heart Rate [ 86 Brachial] Respiratory 22 20 16 Rate Blood Pressure [Left Brachial artery] Blood Pressure 124/62 [Right Brachial artery] O2 Saturation 95 06/28/18 06/29/18 06/29/18 19:19 00:00 04:04 Temperature 36.9 C 36.3 C L Heart Rate 88 Heart Rate [ 88 84 Brachial] Respiratory 20 18 18 Rate Blood Pressure 128/65 [Left Brachial artery] Blood Pressure 142/69 H [Right Brachial artery] O2 Saturation 95 96 06/29/18 06/29/18 06/29/18 04:15 07:38 08:00 Temperature 36.5 C 36.6 C Heart Rate 88 Heart Rate [ 92 85 Brachial] Respiratory 18 20 16 Rate Blood Pressure 121/55 L [Left Brachial artery] Blood Pressure 146/70 H [Right Brachial artery] O2 Saturation 94 96 06/29/18 06/29/18 11:14 13:48 Temperature 36.5 C Heart Rate 82 Heart Rate [ 94 Brachial] Respiratory 18 18 Rate Blood Pressure 137/68 H [Left Brachial artery] Blood Pressure [Right Brachial artery] O2 Saturation 92 Oxygen O2 Source [Without Activity] Oxymizer O2 Source Oxymizer Oxygen Flow Rate 10 I&O (Last 24 Hrs): Intake and Output Totals x24h 06/27/18 06/28/18 06/29/18 23:59 23:59 23:59 Intake Total 2420 1120 1300 Balance 2420 1120 1300 General: Alert, Oriented x3 HEENT: Mucous membr. moist/pink, Other (appears tired, wearing nasal O2 oximizer) Neck: Supple Neuro: Non Focal Cardiovascular: No murmurs Respiratory: No respiratory distress, Breath sounds nml Abdomen: Soft Extremities: Other (Trace edema) - Results Results: Laboratory Results WBC 12.6 x10^3/uL (4.8-10.8) H 06/27/18 04:35 RBC 4.34 10^6/uL (4.20-5.40) 06/27/18 04:35 Hgb 13.5 g/dL (12.0-16.0) 06/27/18 04:35 Hct 40.7 % (37.0-47.0) 06/27/18 04:35 MCV 93.8 fL (81.0-99.0) 06/27/18 04:35 MCH 31.0 pg (27.0-31.0) 06/27/18 04:35 MCHC 33.0 g/dL (32.0-36.0) 06/27/18 04:35 RDW 14.6 % (12.0-15.0) 06/27/18 04:35 Plt Count 301 10^3/uL (130-450) 06/27/18 04:35 MPV 8.6 fL (7.9-10.8) 06/27/18 04:35 Neut # (Auto) 11.1 10^3/uL (1.5-6.6) H 06/27/18 04:35 Lymph # (Auto) 0.8 10^3/uL (1.5-3.5) L 06/27/18 04:35 [place] # (Auto) 0.7 10^3/uL (0.0-1.0) 06/27/18 04:35 Eos # (Auto) 0.0 10^3/uL (0.0-0.7) 06/27/18 04:35 Baso # (Auto) 0.0 10^3/uL (0.0-0.1) 06/27/18 04:35 Absolute Nucleated RBC 0.00 x10^3/uL 06/27/18 04:35 Nucleated RBC % 0.0 /100WBC 06/27/18 04:35 PT 45.4 secs (9.9-12.6) H 06/29/18 05:35 INR 4.1 (0.8-1.2) H 06/29/18 05:35 Sodium 135 mmol/L (135-145) 06/27/18 04:35 Potassium 3.9 mmol/L (3.5-5.0) 06/27/18 04:35 Chloride 96 mmol/L (101-111) L 06/27/18 04:35 Carbon Dioxide 29 mmol/L (21-32) 06/27/18 04:35 Anion Gap 10.0 (6-13) 06/27/18 04:35 BUN 27 mg/dL (6-20) H 06/27/18 04:35 Creatinine 0.8 mg/dL (0.4-1.0) 06/27/18 04:35 Estimated GFR (MDRD) 70 (>89) L 06/27/18 04:35 Glucose 146 mg/dL (70-100) H 06/27/18 04:35 Lactic Acid 1.4 mmol/L (0.5-2.2) 06/25/18 03:35 Calcium 8.1 mg/dL (8.5-10.3) L 06/27/18 04:35 Total Bilirubin 0.7 mg/dL (0.2-1.0) 06/25/18 02:52 AST 29 IU/L (10-42) 06/25/18 02:52 ALT 27 IU/L (10-60) 06/25/18 02:52 Alkaline Phosphatase 66 IU/L (42-121) 06/25/18 02:52 Troponin I 0.04 ng/mL (<0.49) 06/25/18 02:52 B-Natriuretic Peptide 385 pg/mL (5-100) H 06/26/18 04:45 Total Protein 7.3 g/dL (6.7-8.2) 06/25/18 02:52 Albumin 3.8 g/dL (3.2-5.5) 06/25/18 02:52 Globulin 3.5 g/dL (2.1-4.2) 06/25/18 02:52 Albumin/Globulin Ratio 1.1 (1.0-2.2) 06/25/18 02:52 Lipase 23 U/L (22-51) 06/25/18 02:52 TSH 0.57 uIU/mL (0.34-5.60) 06/28/18 05:00 Influenza A (Rapid) Negative (Negative) 06/25/18 03:20 Influenza B (Rapid) Negative (Negative) 06/25/18 03:20 MRSA Surveill Initial NEGATIVE (NEGATIVE) 06/25/18 10:57
--- NOTE | 2018-06-29 15:25 | Discharge Plan ---
Discharge Plan Disposition: Home, Self Care Condition: Stable Prescriptions: guaiFENesin/CODEINE [Robitussin AC] 5 ml PO Q6HR PRN #40 udc PRN Reason: Cough Benzonatate [Tessalon] 100 mg PO TID PRN #12 capsule PRN Reason: Cough Doxycycline Hyclate [Vibramycin] 100 mg PO BID #6 capsule Fluconazole [Diflucan] 100 mg PO DAILY #5 tablet guaiFENesin [Mucinex] 600 mg PO BID #20 tablet Montelukast [Singulair] 10 mg PO QPM #30 tablet predniSONE [Deltasone] 20 mg PO DAILYWM #30 tablet Diet: Low Sodium Activity Restrictions: Activity as Tolerated Shower Restrictions: No Driving Restrictions: Yes Assistance Devices: Wheelchair, Walker Instruction Topics: Prednisone tablets, COPD, Chronic Lung Disease [employer], Pneumonia, Pneumonia Dc, Coughing Techniques Dc Additional Instructions or Follow Up instructions: You were admitted her for treatment of pneumonia and COPD. You are on a changed list of medications. Follow that list and finish the antibiotics to completion. New oxygen settings are necessary for you: 4Liter Oxygen setting at rest, increase to 8L with activity. Pulmonary Rehab at the [facility] here has been prescribed for you. The nurses at the [facility] will contact you to get started or you can call [phone], [phone]. [phone] See your PCP in 1-2 weeks for hospital follow-up and your Dye Line Operator and Circle Saw Operator as scheduled, for follow-up. Follow-Up Care: [facility] - Pulmonary No Smoking: If you smoke, Please STOP! Call for help. Follow-up with: Angelo Mclaughlin MD [Primary Care Provider] -
[2018-06-29] MEDS: DOXYCYCLINE 100 MG TABLET PO SCH (20:37)
[2018-06-29] MEDS ORDERED: MONTELUKAST 10 MG TABLET PO SCH (21:00)
[2018-06-29] MEDS ORDERED: TEMAZEPAM 7.5 MG CAPSULE PO SCH (23:00)
[2018-06-30 06:02] LABS: INR 3.1 (0.8-1.2); PT - PROTHROMBIN TIME 33.8 secs (9.9-12.6)
[2018-06-30] MEDS: BUDESONIDE 0.5 MG/2 ML NEB INH SCH (07:42)
[2018-06-30] MEDS: FORMOTEROL FUMARATE NEB 20 MCG/2 ML INH SCH (07:43)
[2018-06-30] MEDS: IPRATROPIUM/ALBUTEROL 3 ML NEB INH SCH ×2 (07:43→10:58)
[2018-06-30 08:25] VITALS: BP 130/79
[2018-06-30] MEDS: diltiaZEM CD 120 MG CAPSULE PO SCH (08:41)
[2018-06-30] MEDS: SACCHAROMYCES BOULARDII 250 MG CAPSULE PO SCH (08:41)
[2018-06-30] MEDS: predniSONE 20 MG TABLET PO SCH (08:41)
[2018-06-30] MEDS: DOXYCYCLINE 100 MG TABLET PO SCH (08:42)
[2018-06-30] MEDS: FLUCONAZOLE 100 MG TABLET PO SCH (08:42)
[2018-06-30] MEDS: guaiFENesin 600 MG TABLET PO SCH (08:42)
[2018-06-30] MEDS: LEVOTHYROXINE 25 MCG TABLET PO SCH (08:43)
[2018-06-30] MEDS: POLYETHYLENE GLYCOL 3350 17 GM PACKET PO SCH (08:43)
[2018-06-30] MEDS: PRAVASTATIN 40 MG TABLET PO SCH (08:43)
[2018-06-30] MEDS: SODIUM CHLORIDE FLUSH 0.9% 10 ML SYRINGE IVP SCH ×2 (08:44→08:52)
[2018-06-30] MEDS ORDERED: FUROSEMIDE 20 MG TABLET PO SCH (09:00)
--- NOTE | 2018-07-04 15:09 | DISCHARGE SUMMARY ---
Physician: Majo Ruano MD DATE OF ADMISSION: 06/25/2018 DATE OF DISCHARGE: 06/29/2018 HISTORY OF PRESENT ILLNESS: This is a 77-year-old white female with a history of severe COPD, on oxygen at home at 3 liters per minute continuously. She also has a history of hypertension, obesity, osteoarthritis with chronic pain in multiple joints, and a history of atrial fibrillation, and was on Flecainide for maintaining sinus rhythm. The patient presented with complaints of three days of a URI, fever to 37.2 C and marked tachypnea. She came to the Emergency Room by ambulance and was found to have desaturations requiring 10 liters supplemental oxygen, chest x-ray with right lower lobe infiltrate, elevated white count, and she was admitted to the ICU for potential BiPAP use. HOSPITAL COURSE AND DISCHARGE DIAGNOSES 1. Community-acquired pneumonia. The chest x-ray showed a right lower lobe infiltrate. The patient had sputum and blood cultures done. She was put on empiric antibiotics using IV ceftriaxone and IV Zithromax. She did not require BiPAP in the ICU, and was transferred to a medical/surgical floor. She had pulmonary toilet instituted using Mucinex, Tessalon Perles, Acapella device, and had very slow improvement of her sputum, cough, and dyspnea. She was eventually transitioned to p.o. antibiotics to complete a course using Vibramycin. 2. Yeast cells in diagnostic test. Despite no bacterial growth in sputum or blood cultures, her sputum did grow yeast, and because she had such a slow improvement in clearing her sputum, she was started on treatment for fungal respiratory infection using Diflucan. She was sent home to complete a course with this as well. 3. Chronic obstructive pulmonary disease exacerbation. The patient reported that she had known severe COPD and was on Albuterol and other inhalers as well as oxygen 04/12. Here, she required an Oxymizer set as high as 11 liters of oxygen and had very slow improvement to require lower supplemental oxygen. She underwent an oximetry test before discharge, and had a change in her oxygen requirements: She needed 4 liters supplemental at rest, to increase to 8 liters supplemental oxygen with any activity; a concentrator was ordered for the home. She was also sent home with Mucinex, Tessalon Zarinaes Robitussin-AC for her symptoms, and resumed all her inhalers. Singulair 10 mg at evening was a new dose also ordered at discharge. 4. Persistent atrial fibrillation. At admission, she was in atrial fibrillation, the rate was controlled. Her oral Flecainide had been continued by the admitting doctor. After several days of persistent atrial fibrillation, I called her Friend Of The Court to discuss discontinuing the Flecainide since it was not maintaining sinus rhythm, and he agreed this should be done. Flecainide was stopped and she was not discharged on it. She knows to followup with her Friend Of The Court for further AFib management. 5. Hypothyroidism. The patient was kept on her thyroid medication while here. 6. Insomnia. The patient reported usually only 3 hours of sleep at night and a special pillow bed that she has at home, which aids in her sleep. Her insomnia is mostly due to arthritic pain, she stated. 7. Arthritic pain. The patient was given p.r.n. pain medications while here. LABS AND IMAGING: Reviewed and summarized above. ALLERGIES: SULFA. MEDICATIONS AT THE TIME OF DISCHARGE 1. Tylenol p.r.n. 2. Albuterol two puffs p.r.n. wheezing. 3. Diltiazem CD 120 mg daily. 4. Colace 250 mg daily p.r.n. 5. Flonase nasal spray daily. 6. Advair Diskus two puffs inhalation daily. 7. Lasix 20 mg daily. 8. Tylenol with Codeine every 6 hours p.r.n. 9. Levothyroxine 125 mcg p.o. daily. 10. Omeprazole 20 mg b.i.d. 11. MiraLax daily p.r.n. 12. Pravastatin 40 mg every night. 13. Spiriva 18 mcg inhaler daily. 14. Warfarin 2.5 mg to 5 mg daily. The patient does a home INR check every Sunday. 15. Robitussin-AC 5 mL every 6 hours p.r.n. 16. Tessalon Perles 100 mg p.o. t.i.d. p.r.n. cough. 17. Vibramycin 100 mg b.i.d. for three more days. 18. Diflucan 100 mg p.o. daily for five more days. 19. Mucinex 600 mg p.o. b.i.d. 20. Synthroid additional dose of 25 mcg daily. 21. Singulair 10 mg p.o. every night. CONDITION AT DISCHARGE: Stable. PHYSICAL EXAMINATION VITAL SIGNS: Blood pressure 130/80, heart rate 80 in atrial fibrillation, afebrile, on 6 liters of oxygen setting showed an oxygen saturation of 95%. HEENT: Moist oral mucosa, unequal gaze and exophthalmus of the right eye, and cyanotic lips. NECK: Without JVD, but she is obese. CHEST: Good air entry with no wheezes or rales on day of discharge. HEART: Heart sounds are normal. ABDOMEN: Obese. EXTREMITIES: Trace pretibial edema. NEUROLOGIC: Grossly intact. FOLLOWUP: She was advised to see her PCP in a week and keep appointments with her Friend Of The Court and Accountant Assistant as already scheduled. CODE STATUS: DNR. Time required to complete the entire discharge, chart review, patient and daughter education, prescription orders, and dictation: 60 minutes. TD: 07/04/2018 13:53 BEE
== END 2018-06-30 13:54 | disposition home or self-care (01) | DRG 194 ==
LOC: EDUNIT# → ED 02:26 → ICU 03:36 → MS2 06-26 13:58
PROVIDERS: ADMIT Specialist; ATTEND Internal Medicine
DX: J44.1 Chronic obstructive pulmonary disease with (acute) exacerbation (principal); J18.1 Lobar pneumonia, unspecified organism; J18.9 Pneumonia, unspecified organism; B37.89 Other sites of candidiasis; E78.00 Pure hypercholesterolemia, unspecified; I48.91 Unspecified atrial fibrillation; Z90.49 Acquired absence of other specified parts of digestive tract; Z79.02 Long term (current) use of antithrombotics/antiplatelets; Z88.2 Allergy status to sulfonamides; I48.1 Persistent atrial fibrillation; J43.9 Emphysema, unspecified; I10 Essential (primary) hypertension; J06.9 Acute upper respiratory infection, unspecified; E66.01 Morbid (severe) obesity due to excess calories; M19.90 Unspecified osteoarthritis, unspecified site; I48.2 Chronic atrial fibrillation; E03.9 Hypothyroidism, unspecified; G47.00 Insomnia, unspecified; Z66 Do not resuscitate; R32 Unspecified urinary incontinence; I34.0 Nonrheumatic mitral (valve) insufficiency; E78.5 Hyperlipidemia, unspecified; Z96.659 Presence of unspecified artificial knee joint; Z87.891 Personal history of nicotine dependence; K59.09 Other constipation; Z68.33 Body mass index [BMI] 33.0-33.9, adult
CPT/HCPCS: 36415; 71045; 80048; 80053; 83605; 83690; 83880; 84443; 84484; 85025; 85610; 87040; 87070; 87150; 87205; 87275; 87276; 93005; 94640; 94761; 96374; 99284

== ENCOUNTER 2019-01-16 13:23 | Emergency (ER) | payer MEDICARE, OTHER ==
--- NOTE | 2019-01-16 14:03 | ED Physician Documentation ---
History of Present Illness - Stated complaint Stated Complaint: SOA/NAUSEA - Chief complaint Chief Complaint: Resp - Additonal information Additional information: This is a 78-year-old female with history of COPD on 4 L of oxygen at rest, 6 L of oxygen while up and moving around, atrial fibrillation on anticoagulation, hypertension, who presents with shortness of breath. Patient began developing some increased shortness of breath yesterday, which is particularly worse when she is up and moving around. She loses her breath when she walks even across the room. She has had an increasing cough productive of some yellow mucus. She has had increasing wheezing. She denies any blood in her sputum. No leg swelling, she denies a known history of heart failure. No chest pain. No fever. Review of Systems Constitutional: denies: Fever Nose: denies: Rhinorrhea / runny nose Cardiac: denies: Chest pain / pressure Respiratory: reports: Dyspnea, Cough GI: denies: Abdominal Pain Skin: denies: Rash Neurologic: reports: Generalized weakness. denies: Headache Endocrine: reports: Easy bruising / bleeding PD PAST MEDICAL HISTORY - Past Medical History Cardiovascular: High cholesterol, Atrial fibrillation Respiratory: COPD, Other Neuro: None Endocrine/Autoimmune: HyPERthyroidism GI: Chronic constipation : Incontinence HEENT: Chronic vision loss Psych: None Musculoskeletal: Osteoarthritis, Chronic back pain Derm: None - Past Surgical History Past Surgical History: Yes General: Appendectomy Ortho: Hip replacement HEENT: Cataracts - Present Medications Home Medications: Ambulatory Orders Medication Instructions Recorded Confirmed Fluticasone [Flonase] 2 spr ANTOINE DAILY 09/22/15 06/25/18 Fluticasone/Salmeterol [Advair 2 puffs INH DAILY 09/22/15 06/25/18 500-50 Diskus] Pravastatin [Pravachol] 40 mg PO DAILY 09/22/15 06/25/18 diltiaZEM CD [Cardizem Cd] 120 mg PO DAILY 09/22/15 06/25/18 Furosemide 20 mg PO DAILY 02/27/17 06/25/18 Acetaminophen 1,000 mg PO DAILY PRN 06/25/18 06/25/18 Albuterol Sulfate [Albuterol 2 puffs IH PRN PRN 06/25/18 06/25/18 Sulfate Hfa] Clobetasol 0.05% Oint [Temovate 1 applic TOP PRN PRN 06/25/18 06/25/18 0.05% Oint] Docusate Sodium 250Mg Capsule 250 mg PO DAILY PRN 06/25/18 06/25/18 [Colace 250Mg Capsule] Hydrocodone/Acetaminophen 1 tab PO Q6H PRN 06/25/18 06/25/18 [Hydrocodone-Acetamin 5-325 mg] Levothyroxine Sodium 125 mg PO DAILY 06/25/18 06/25/18 Omeprazole 20 mg PO BID 06/25/18 06/25/18 Polyethylene Glycol 3350 [Miralax] 17 gm PO DAILY PRN 06/25/18 06/25/18 Tiotropium [place] [Spiriva] 18 mcg INH DAILY 06/25/18 06/25/18 Warfarin Sodium 2.5 - 5 mg PO DAILY 06/25/18 06/25/18 Benzonatate [Tessalon] 100 mg PO TID PRN #12 capsule 06/29/18 Doxycycline Hyclate [Vibramycin] 100 mg PO BID #6 capsule 06/29/18 Fluconazole [Diflucan] 100 mg PO DAILY #5 tablet 06/29/18 Levothyroxine [Synthroid] 25 mcg PO DAILY tablet 06/29/18 Montelukast [Singulair] 10 mg PO QPM #30 tablet 06/29/18 guaiFENesin [Mucinex] 600 mg PO BID #20 tablet 06/29/18 guaiFENesin/CODEINE [Robitussin AC] 5 ml PO Q6HR PRN #40 udc 06/29/18 predniSONE [Deltasone] 20 mg PO DAILYWM #30 tablet 06/29/18 Amox/Clav 875/125 [Augmentin] 1 each PO Q12H #14 tablet 01/16/19 predniSONE [Prednisone] 40 mg PO DAILY #10 tablet 01/16/19 - Allergies Allergies/Adverse Reactions: Allergies Allergy/AdvReac Type Severity Reaction Status Date / Time Sulfa (Sulfonamide Allergy Unknown Verified 01/16/19 13:31 Antibiotics) - Social History Does the pt smoke?: No Smoking Status: Former smoker Does the pt drink ETOH?: Yes Does the pt have substance abuse?: No - Immunizations Immunizations are current?: Yes - POLST Patient has POLST: No PD ED PE NORMAL - Vitals Vital signs reviewed: Yes - General General: Alert and oriented X 3 - HEENT HEENT: Atraumatic - Neck Neck: Supple, no meningeal sign - Cardiac Cardiac: RRR (Regular rate and rhythm on my exam) - Respiratory Respiratory: Other (Reduced air movement and end expiratory wheeze. On 4 L O2 NC) - Abdomen Abdomen: Soft, Non tender, Non distended - Derm Derm: Warm and dry - Extremities Extremities: No deformity - Neuro Neuro: Alert and oriented X 3 - Psych Psych: Normal mood, Normal affect Results - Vitals Vitals: Vital Signs - 24 hr 01/16/19 01/16/19 01/16/19 13:29 13:31 14:52 Temperature 36.8 C Heart Rate 102 H 76 Respiratory 30 H 20 Rate Blood Pressure 141/67 H O2 Saturation 86 L 91 L 01/16/19 01/16/19 01/16/19 15:29 15:31 16:26 Temperature 37.7 C H Heart Rate 88 98 96 Respiratory 20 16 16 Rate Blood Pressure 144/68 H 123/60 O2 Saturation 92 91 L Oxygen O2 Source [Without Activity] Oxymizer O2 Source Nasal cannula Oxygen Flow Rate 4 - Labs Labs: Laboratory Tests 01/16/19 01/16/19 01/16/19 09:49 09:49 09:49 WBC RBC Hgb Hct MCV MCH MCHC RDW Plt Count MPV Neut # (Auto) Lymph # (Auto) [place] # (Auto) Eos # (Auto) Baso # (Auto) Absolute Nucleated RBC Nucleated RBC % PT 28.0 H INR 2.5 H Sodium 136 Potassium 3.4 L Chloride 96 L Carbon Dioxide 28 Anion Gap 12.0 BUN 13 Creatinine 0.6 Estimated GFR (MDRD) 97 Glucose 133 H Calcium 8.6 Total Bilirubin 0.7 AST 27 ALT 24 Alkaline Phosphatase 70 Troponin I High Sens 6.9 B-Natriuretic Peptide Total Protein 7.5 Albumin 3.9 Globulin 3.6 Albumin/Globulin Ratio 1.1 Lipase 23 01/16/19 01/16/19 09:49 14:10 WBC 14.5 H RBC 4.40 Hgb 13.3 Hct 41.2 MCV 93.6 MCH 30.2 MCHC 32.3 RDW 14.8 Plt Count 283 MPV 10.4 Neut # (Auto) 11.5 H Lymph # (Auto) 1.8 [place] # (Auto) 1.1 H Eos # (Auto) 0.1 Baso # (Auto) 0.1 Absolute Nucleated RBC 0.00 Nucleated RBC % 0.0 PT INR Sodium Potassium Chloride Carbon Dioxide Anion Gap BUN Creatinine Estimated GFR (MDRD) Glucose Calcium Total Bilirubin AST ALT Alkaline Phosphatase Troponin I High Sens B-Natriuretic Peptide 62 Total Protein Albumin Globulin Albumin/Globulin Ratio Lipase - Rads (name of study) CXR Radiology: Other (Stable COPD, no acute changes) PD MEDICAL DECISION MAKING - ED course Complexity details: considered differential (COPD exacerbation, pneumonia, ACS, pneumothorax, PE, HF) ED course: On arrival patient was mildy tachycardic, and had one reading of hypoxia after activity, though this resolved at the time of my evaluation. She is saturating in the low 90s on her baseline O2. She has reduced air movement and wheezes on exam. Solumedrol given, as well as 2 duoneb treatments. CXR shows no acute change. Troponin negative and pt has no chest pain, I highly doubt ACS. labs are notable for leukocytosis of 14.5. Patient is feeling improved after the duoneb treatments, her vital signs are stable and her oxygen saturation is at her baseline. I discussed that she appears to have a COPD exacerbation, She was given a dose of augmentin here and we will treat with augmentin and a 5 day burst of steroids. PE and HF unlikely given her imrpovement with duonebs and exam. She will also use her inhalers regularly at home. She is feeling much better and feels well enough to trial outpatient treatment, if she has worsening or new concerning symptoms she will return to the ED. Pt was discharged in the care of family. Departure - Departure Disposition: 01 Home, Self Care Clinical Impression: COPD exacerbation Condition: Stable Instructions: COPD Dc Follow-Up: Angelo Mclaughlin MD [Primary Care Provider] - Within 3 Days (For recheck of your symptoms) Prescriptions: Amox/Clav 875/125 [Augmentin] 1 each PO Q12H #14 tablet predniSONE [Prednisone] 40 mg PO DAILY #10 tablet Comments: You were seen today for cough and shortness of breath. You appear to have a COPD exacerbation. Please take the steroids and the antibiotic as prescribed. Use your inhalers at home as directed. If you develop worsening or not improving shortness of breath, or any new symptoms such as chest pain, or blood in your sputum, return to the emergency department immediately. Otherwise follow-up with your primary care provider as soon as possible Discharge Date/Time: 01/16/19 16:34
[2019-01-16] MEDS ORDERED: IPRATROPIUM/ALBUTEROL 3 ML NEB INH STA ×2 (14:23→15:29)
[2019-01-16] MEDS ORDERED: methylPREDNISolone SUCCINATE 125 MG/2 ML VIAL IVP STA (14:23)
[2019-01-16 14:28] LABS: BASOPHILS # (AUTO) 0.1 10^3/uL (0.0-0.1); BASOPHILS % (AUTO) 0.3 %; EOSINOPHILS # (AUTO) 0.1 10^3/uL (0.0-0.7); EOSINOPHILS % (AUTO) 0.3 %; HGB - HEMOGLOBIN 13.3 g/dL (12.0-16.0); LYMPHOCYTES # (AUTO) 1.8 10^3/uL (1.5-3.5); LYMPHOCYTES % (AUTO) 12.2 %; MEAN CORPUSCULAR HEMOGLOBIN 30.2 pg (27.0-31.0); MEAN CORPUSCULAR HGB CONC 32.3 g/dL (32.0-36.0); MEAN CORPUSCULAR VOLUME 93.6 fL (81.0-99.0); MEAN PLATELET VOLUME 10.4 fL (7.9-10.8); MONOCYTES # (AUTO) 1.1 10^3/uL (0.0-1.0); MONOCYTES % (AUTO) 7.6 %; NEUTROPHILS # (AUTO) 11.5 10^3/uL (1.5-6.6); NEUTROPHILS % (AUTO) 78.9 %; PLT - PLATELET COUNT 283 10^3/uL (130-450); RED CELL DISTRIBUTION WIDTH 14.8 % (12.0-15.0); WHITE BLOOD COUNT 14.5 x10^3/uL (4.8-10.8)
[2019-01-16 14:34] LABS: INR 2.5 (0.8-1.2)
[2019-01-16 14:44] LABS: ALBUMIN 3.9 g/dL (3.2-5.5); ALBUMIN/GLOBULIN RATIO 1.1 (1.0-2.2); BILIRUBIN,TOTAL 0.7 mg/dL (0.2-1.0); CALCIUM 8.6 mg/dL (8.5-10.3); CREATININE 0.6 mg/dL (0.4-1.0); TOTAL PROTEIN 7.5 g/dL (6.7-8.2)
--- NOTE | 2019-01-16 14:56 | XRAY Report ---
Reason: Shortness of breath, hx COPD Procedure Date: 01/16/2019 Accession Number: [id number] / [id number] Procedure: XR - Chest 2 View X-Ray CPT Code: 90586 FULL RESULT: EXAM: CHEST RADIOGRAPHY EXAM DATE: 01/16/2019 02:41 PM. CLINICAL HISTORY: Shortness of breath. The patient has a history of COPD. COMPARISON: CHEST 1 VIEW 06/25/2018 2:47 AM. TECHNIQUE: 2 views. FINDINGS: Lungs/Pleura: Patchy areas of bullous emphysema involving both lungs. No pneumothorax. No pleural effusion. Chronic parenchymal scarring in the right lung base. No bacterial pneumonia. Symmetric hyperexpansion of the lungs with flattening of the hemidiaphragms. Mediastinum: Heart and mediastinal contours are unremarkable. Other: Stable degenerative changes in the spine and shoulders. IMPRESSION: 1. Stable COPD with chronic parenchymal scarring in the right lung base and stable areas of bullous emphysema. 2. No acute findings. 3. Other stable chronic degenerative changes. RADIA
[2019-01-16] MEDS ORDERED: AMOX/CLAV 875 MG/125 MG TABLET PO STA (15:31)
[2019-01-16 16:27] VITALS: BP 123/60
== END 2019-01-16 16:34 | disposition home or self-care (01) ==
LOC: ED 13:23
DX: J44.1 Chronic obstructive pulmonary disease with (acute) exacerbation (principal); R09.02 Hypoxemia; Z99.81 Dependence on supplemental oxygen; I10 Essential (primary) hypertension; I48.91 Unspecified atrial fibrillation; Z79.01 Long term (current) use of anticoagulants; Z87.891 Personal history of nicotine dependence
CPT/HCPCS: 36415; 71046; 80053; 83690; 83880; 84484; 85025; 85610; 93005; 94640; 96374; 99284; A9270

== ENCOUNTER 2019-02-04 14:17 | Outpatient (CLI) | payer MEDICARE, OTHER ==
[2019-02-04 17:29] LABS: HGB - HEMOGLOBIN 13.1 g/dL (12.0-16.0); MEAN CORPUSCULAR HEMOGLOBIN 29.8 pg (27.0-31.0); MEAN CORPUSCULAR HGB CONC 31.1 g/dL (32.0-36.0); MEAN CORPUSCULAR VOLUME 95.7 fL (81.0-99.0); MEAN PLATELET VOLUME 10.5 fL (7.9-10.8); RED BLOOD COUNT 4.4 10^6/uL (4.20-5.40); RED CELL DISTRIBUTION WIDTH 15.1 % (12.0-15.0)
[2019-02-04 18:03] LABS: ALBUMIN 3.8 g/dL (3.2-5.5); ALKALINE PHOSPHATASE 68 IU/L (42-121); ALT ALANINE AMINOTRANSFERASE 15 IU/L (10-60); AST ASPARTATE AMINOTRANSFERASE 20 IU/L (10-42); BILIRUBIN,TOTAL 0.5 mg/dL (0.2-1.0); BUN - BLOOD UREA NITROGEN 16 mg/dL (6-20); CALCIUM 8.8 mg/dL (8.5-10.3); CARBON DIOXIDE - CO2 32 mmol/L (21-32); CHLORIDE 98 mmol/L (101-111); CHOL/HDL RATIO 4.4 (<4.4); CHOLESTEROL 248 mg/dL; CREATININE 0.8 mg/dL (0.4-1.0); GFR - MDRD 70 (>89); GLUCOSE 106 mg/dL (70-100); HDL CHOLESTEROL 56 mg/dL; LDL CHOLESTEROL,CALCULATED 149 mg/dL; LDL/HDL RATIO 2.7 (<4.4); SODIUM 142 mmol/L (135-145); TOTAL PROTEIN 7.7 g/dL (6.7-8.2); VLDL CHOLESTEROL 43 mg/dL
== END 2019-02-04 14:18 | disposition home or self-care (01) ==
LOC: LAB.S 14:17
PROVIDERS: ATTEND Internal Medicine
DX: E78.5 Hyperlipidemia, unspecified (principal); E03.9 Hypothyroidism, unspecified; I48.2 Chronic atrial fibrillation
CPT/HCPCS: 36415; 80053; 80061; 83721; 84443; 85025; 85027

== ENCOUNTER 2019-06-01 21:24 | Emergency (ER) | payer MEDICARE, OTHER ==
--- NOTE | 2019-06-01 21:33 | ED Physician Documentation ---
PD HPI DYSPNEA - Stated complaint Stated Complaint: SOA - History obtained from History obtained from: Patient - History of Present Illness Timing - onset: How many days ago (2 days of some cough and increasing dyspnea over baseline. Worse the past few hours despite use of MDI rescue inhaler.) Timing - onset during: Light activity Timing - duration: Days Timing - details: Gradual onset, Still present, Waxing and waning Inciting event(s): URI (cough and chills for couple of days). No: Out of meds, Immobilization/travel Improved by: O2 (She is on chronic oxygen at home at 4 L nasal cannula with recent increase to 5 L. She has home inhalers as well.), Inhaler/neb Worsened by: Exertion, Coughing Associated symptoms: Cough, Wheezing. No: Fever, Hemoptysis, Bilateral edema Similar symptoms before: Diagnosis (COPD exacerbations with infections) Recently seen: Not recently seen Review of Systems Constitutional: reports: Myalgias, Fatigue. denies: Fever Nose: reports: Congestion. denies: Rhinorrhea / runny nose Throat: denies: Sore throat Respiratory: reports: Cough GI: denies: Nausea, Vomiting, Diarrhea Skin: denies: Rash, Lesions Neurologic: reports: Generalized weakness. denies: Focal weakness, Near syncope, Altered mental status, Headache PD PAST MEDICAL HISTORY - Past Medical History Cardiovascular: High cholesterol, Atrial fibrillation Respiratory: COPD, Other Neuro: None Endocrine/Autoimmune: HyPERthyroidism GI: Chronic constipation : Incontinence HEENT: Chronic vision loss Psych: None Musculoskeletal: Osteoarthritis, Chronic back pain Derm: None - Past Surgical History Past Surgical History: Yes General: Appendectomy Ortho: Hip replacement HEENT: Cataracts - Present Medications Home Medications: Ambulatory Orders Medication Instructions Recorded Confirmed Fluticasone [Flonase] 2 spr ANTOINE DAILY 09/22/15 06/25/18 Pravastatin [Pravachol] 40 mg PO DAILY 09/22/15 06/25/18 diltiaZEM CD [Cardizem Cd] 120 mg PO DAILY 09/22/15 06/25/18 Furosemide 20 mg PO DAILY 02/27/17 06/25/18 Acetaminophen 1,000 mg PO DAILY PM PRN 06/25/18 06/25/18 Albuterol Sulfate [Albuterol 2 puffs IH PRN PRN 06/25/18 06/25/18 Sulfate Hfa] Clobetasol 0.05% Oint [Temovate 1 applic TOP PRN PRN 06/25/18 06/25/18 0.05% Oint] Docusate Sodium 250Mg Capsule 250 mg PO PRN PRN 06/25/18 06/25/18 [Colace 250Mg Capsule] Hydrocodone/Acetaminophen 1 tab PO Q6H PRN 06/25/18 06/25/18 [Hydrocodone-Acetamin 5-325 mg] Levothyroxine Sodium 125 mg PO DAILY 06/25/18 06/25/18 Tiotropium [place] [Spiriva] 18 mcg INH DAILY 06/25/18 06/25/18 Warfarin Sodium 2.5 - 5 mg PO DAILY 06/25/18 06/25/18 polyethylene glycoL 3350 [Miralax] 17 gm PO PRN PRN 06/25/18 06/25/18 Doxycycline Monohydrate 100 mg PO BID #14 tablet 06/01/19 Fluticasone Propion/Salmeterol 1 puffs INH BID 06/01/19 06/01/19 [Wixela 500-50 Inhub] Ipratropium [Atrovent] 1 puffs INH Q6H #1 inhaler 06/01/19 dexAMETHasone [Decadron] 4 mg PO DAILY #7 tablet 06/01/19 - Allergies Allergies/Adverse Reactions: Allergies Allergy/AdvReac Type Severity Reaction Status Date / Time Sulfa (Sulfonamide Allergy Unknown Verified 01/16/19 13:31 Antibiotics) - Social History Does the pt smoke?: No Smoking Status: Former smoker Does the pt drink ETOH?: Yes Does the pt have substance abuse?: No - Immunizations Immunizations are current?: Yes - POLST Patient has POLST: No PD ED PE NORMAL - Vitals Vital signs reviewed: Yes - General General: Alert and oriented X 3, No acute distress (Able to talk in complete sentences. No accessory muscle use. She does have wheezing), Well developed/nourished - HEENT HEENT: Moist mucous membranes, Pharynx benign - Neck Neck: Supple, no meningeal sign, No adenopathy - Cardiac Cardiac: No murmur - Respiratory Respiratory: No respiratory distress. No: Clear bilaterally (wheezing; no coarse sounds) - Abdomen Abdomen: Soft, Non tender - Derm Derm: Normal color - Extremities Extremities: No tenderness to palpate, Normal ROM s pain, No edema, No calf tenderness / cord - Neuro Neuro: Alert and oriented X 3, No motor deficit, Normal speech Results - Vitals Vitals: Vital Signs - 24 hr 06/01/19 06/01/19 06/01/19 21:30 22:00 22:10 Temperature 36.9 C Heart Rate 94 82 79 Respiratory 22 22 20 Rate Blood Pressure 151/54 H 137/77 H O2 Saturation 93 96 06/01/19 23:20 Temperature 36.0 C L Heart Rate 78 Respiratory 22 Rate Blood Pressure 109/52 L O2 Saturation 97 Oxygen O2 Source [Without Activity] Oxymizer O2 Source Room air Oxygen Flow Rate 5 - Labs Labs: Laboratory Tests 06/01/19 06/01/19 06/01/19 22:00 22:00 22:00 WBC 8.2 RBC 4.09 L Hgb 12.7 Hct 39.8 MCV 97.3 MCH 31.1 H MCHC 31.9 L RDW 13.7 Plt Count 286 MPV 10.1 Neut # (Auto) 6.0 Lymph # (Auto) 1.4 L [place] # (Auto) 0.6 Eos # (Auto) 0.1 Baso # (Auto) 0.0 Absolute Nucleated RBC 0.00 Nucleated RBC % 0.0 Sodium 139 Potassium 2.8 L Chloride 101 Carbon Dioxide 28 Anion Gap 10.0 BUN 19 Creatinine 0.8 Estimated GFR (MDRD) 70 L Glucose 179 H Calcium 8.8 Magnesium 1.5 L Total Bilirubin 0.6 AST 27 ALT 20 Alkaline Phosphatase 71 Troponin I High Sens 6.3 B-Natriuretic Peptide Total Protein 7.0 Albumin 3.8 Globulin 3.2 Albumin/Globulin Ratio 1.2 Lipase 30 06/01/19 22:00 WBC RBC Hgb Hct MCV MCH MCHC RDW Plt Count MPV Neut # (Auto) Lymph # (Auto) [place] # (Auto) Eos # (Auto) Baso # (Auto) Absolute Nucleated RBC Nucleated RBC % Sodium Potassium Chloride Carbon Dioxide Anion Gap BUN Creatinine Estimated GFR (MDRD) Glucose Calcium Magnesium Total Bilirubin AST ALT Alkaline Phosphatase Troponin I High Sens B-Natriuretic Peptide 77 Total Protein Albumin Globulin Albumin/Globulin Ratio Lipase - Rads (name of study) chest xray Radiology: Prelim report reviewed (no infiltrates), See rad report PD MEDICAL DECISION MAKING - ED course Complexity details: considered differential (She is not looking too badly and breathing easily enough with some wheezing that improved with nebulizer. She is oxygenating adequately on her home 5 L nasal cannula. You could actually probably go down to 4 L nasal cannula. Do not see the need for hospitalization. We will treat her with antibiotics and short course steroids and add Atrovent to her albuterol.), d/w patient Departure - Departure Disposition: 01 Home, Self Care Clinical Impression: Asthma exacerbation in COPD, Hypokalemia Upper respiratory infection Qualifiers: URI type: unspecified URI Qualified Code(s): J06.9 - Acute upper respiratory infection, unspecified Condition: Stable Record reviewed to determine appropriate education?: Yes Instructions: ED COPD Flare Follow-Up: Angelo Mclaughlin MD [Primary Care Provider] - Prescriptions: dexAMETHasone [Decadron] 4 mg PO DAILY #7 tablet Doxycycline Monohydrate 100 mg PO BID #14 tablet Ipratropium [Atrovent] 1 puffs INH Q6H #1 inhaler Comments: Increase your potassium supplement from once to 2 tablets a day for the next 1 to 2 weeks. You could then resume the once daily. Have your primary care check and see how your electrolytes are doing at that point. Continue your usual medications. Use your pro-air (albuterol) rescue inhaler 2 puffs 4 times a day for the next week. To that add Atrovent inhaler 1 puff 4 times a day as well. Decadron steroid orally for the next week. Doxycycline antibiotic twice daily for a week as well. Recheck if not improving well over the next few days and return if worsening. Your prescriptions were transmitted to [facility] in [place]. Discharge Date/Time: 06/01/19 23:25
[2019-06-01] MEDS ORDERED: IPRATROPIUM/ALBUTEROL 3 ML NEB INH STA (21:50)
[2019-06-01] MEDS ORDERED: DEXAMETHASONE 10 MG/ML VIAL IVP STA (21:51)
[2019-06-01 22:05] LABS: BASOPHILS % (AUTO) 0.4 %; EOSINOPHILS # (AUTO) 0.1 10^3/uL (0.0-0.7); EOSINOPHILS % (AUTO) 0.6 %; HGB - HEMOGLOBIN 12.7 g/dL (12.0-16.0); LYMPHOCYTES # (AUTO) 1.4 10^3/uL (1.5-3.5); LYMPHOCYTES % (AUTO) 17.3 %; MEAN CORPUSCULAR HEMOGLOBIN 31.1 pg (27.0-31.0); MEAN CORPUSCULAR HGB CONC 31.9 g/dL (32.0-36.0); MEAN CORPUSCULAR VOLUME 97.3 fL (81.0-99.0); MEAN PLATELET VOLUME 10.1 fL (7.9-10.8); MONOCYTES # (AUTO) 0.6 10^3/uL (0.0-1.0); MONOCYTES % (AUTO) 7.7 %; NEUTROPHILS % (AUTO) 73.5 %; PLT - PLATELET COUNT 286 10^3/uL (130-450); RED BLOOD COUNT 4.09 10^6/uL (4.20-5.40); RED CELL DISTRIBUTION WIDTH 13.7 % (12.0-15.0); WHITE BLOOD COUNT 8.2 x10^3/uL (4.8-10.8)
[2019-06-01 22:20] LABS: ALBUMIN 3.8 g/dL (3.2-5.5); ALBUMIN/GLOBULIN RATIO 1.2 (1.0-2.2); BILIRUBIN,TOTAL 0.6 mg/dL (0.2-1.0); CALCIUM 8.8 mg/dL (8.5-10.3); CREATININE 0.8 mg/dL (0.4-1.0); MAGNESIUM 1.5 mg/dL (1.7-2.8)
[2019-06-01] MEDS ORDERED: POTASSIUM CHLORIDE 20 MEQ TABLET PO STA (22:47)
--- NOTE | 2019-06-01 23:19 | XRAY Report ---
Reason: dyspnea/ cough Procedure Date: 06/01/2019 Accession Number: [id number] / [id number] Procedure: XR - Chest 2 View X-Ray CPT Code: 63634 Final Report FULL RESULT: EXAM: CHEST RADIOGRAPHY EXAM DATE: 06/01/2019 10:42 PM. CLINICAL HISTORY: Dyspnea/cough. COMPARISON: CHEST 2 VIEW 01/16/2019 2:23 PM CHEST W/ 03/28/2013 12:00 PM. TECHNIQUE: 2 views. FINDINGS: Lungs/Pleura: Increased lung volumes. Scarring and emphysematous changes again seen in the upper lobes. No pulmonary edema or focal lung consolidation. No pleural effusion or pneumothorax. Mediastinum: Heart and mediastinal contours are unremarkable. Other: None. IMPRESSION: 1. Chronic obstructive pulmonary disease. 2. No acute focal airspace process. RADIA
[2019-06-01 23:25] VITALS: BP 109/52
== END 2019-06-01 23:25 | disposition home or self-care (01) ==
LOC: ED 21:24
DX: J44.1 Chronic obstructive pulmonary disease with (acute) exacerbation (principal); E87.6 Hypokalemia; J06.9 Acute upper respiratory infection, unspecified; Z87.891 Personal history of nicotine dependence; Z99.81 Dependence on supplemental oxygen
CPT/HCPCS: 36415; 71046; 80053; 83690; 83735; 83880; 84484; 85025; 93005; 94640; 94664; 99284; 99285; A9270

== ENCOUNTER 2019-06-10 15:16 | Emergency (ER) | payer MEDICARE, OTHER ==
[2019-06-10 16:04] LABS: BASOPHILS % (AUTO) 0.3 %; EOSINOPHILS % (AUTO) 0.6 %; HGB - HEMOGLOBIN 15.1 g/dL (12.0-16.0); LYMPHOCYTES % (AUTO) 29.8 %; MEAN CORPUSCULAR HEMOGLOBIN 30.7 pg (27.0-31.0); MEAN CORPUSCULAR HGB CONC 32.6 g/dL (32.0-36.0); MEAN CORPUSCULAR VOLUME 94.1 fL (81.0-99.0); MONOCYTES % (AUTO) 7.5 %; NEUTROPHILS % (AUTO) 57.9 %; PLT - PLATELET COUNT 368 10^3/uL (130-450); RED BLOOD COUNT 4.92 10^6/uL (4.20-5.40); RED CELL DISTRIBUTION WIDTH 14.2 % (12.0-15.0); WHITE BLOOD COUNT 17.4 x10^3/uL (4.8-10.8)
[2019-06-10 16:06] LABS: ABNORMAL LYMPHS % (MANUAL) 0 %
[2019-06-10 16:14] LABS: ALBUMIN 3.6 g/dL (3.2-5.5); BILIRUBIN,TOTAL 0.3 mg/dL (0.2-1.0); CALCIUM 8.2 mg/dL (8.5-10.3); CREATININE 0.7 mg/dL (0.4-1.0); TOTAL PROTEIN 7.1 g/dL (6.7-8.2)
--- NOTE | 2019-06-10 16:15 | XRAY Report ---
Reason: Chest Pain Procedure Date: 06/10/2019 Accession Number: [id number] / [id number] Procedure: XR - Chest 1 View X-Ray CPT Code: 00484 Final Report FULL RESULT: EXAM: CHEST RADIOGRAPHY EXAM DATE: 06/10/2019 04:08 PM. CLINICAL HISTORY: Chest pain. Increased shortness of breath after diagnosed with bronchitis a week ago. History of COPD. COMPARISON: CHEST 2 VIEW 06/01/2019 10:42 PM CHEST 2 VIEW 01/16/2019 2:23 PM. TECHNIQUE: 1 view. FINDINGS: Lungs/Pleura: Hyperexpansion with flattening of the diaphragms, as before, compatible with known COPD. Chronic mild parenchymal scarring in the bilateral lower hemithoraces. No focal consolidation or evidence of edema. No pleural effusion or pneumothorax. Mediastinum: Heart size is normal. The aorta is mildly tortuous and contains atherosclerotic calcifications, as before. Other: None. IMPRESSION: COPD. No acute cardiopulmonary abnormality. RADIA
[2019-06-10 16:25] LABS: BAND NEUTROPHILS % (MANUAL) 1 %; EOSINOPHILS # (MANUAL) 0.3 10^3/uL (0-0.7); LYMPHOCYTES # (MANUAL) 6.8 10^3/uL (1.5-3.5); LYMPHOCYTES % (MANUAL) 39 %; RBC MORPHOLOGY (MULTIPLE) NORMAL APPEARANCE (NORMAL)
[2019-06-10 16:26] LABS: DIFFERENTIAL COMMENT MANUAL DIFFERENTIAL; PLATELET ESTIMATE, MANUAL NORMAL (130-450,000) (NORMAL); PLATELET MORPHOLOGY RARE GIANT PLATELETS (NORMAL)
[2019-06-10] MEDS ORDERED: SODIUM CHLORIDE 0.9% 1,000 ML IV ONE (16:32)
[2019-06-10] MEDS ORDERED: methylPREDNISolone SUCCINATE 125 MG/2 ML VIAL IVP STA (16:32)
[2019-06-10] MEDS ORDERED: IPRATROPIUM/ALBUTEROL 3 ML NEB INH STA (16:33)
--- NOTE | 2019-06-10 16:40 | ED Physician Documentation ---
PD HPI DYSPNEA - Stated complaint Stated Complaint: SOA - Chief complaint Chief Complaint: Resp - History obtained from History obtained from: Patient - History of Present Illness Timing - onset: How many weeks ago (1) Timing - onset during: Rest Timing - duration: Weeks (1) Timing - details: Gradual onset Pain level max: 0 Pain level now: 0 Improved by: O2 Worsened by: Exertion, Laying flat Associated symptoms: Cough, Wheezing. No: Fever Similar symptoms before: Diagnosis (COPD) Recently seen: Emergency Dept (COPD flare) - Additional information Additional information: 78-year-old female presents to the emergency department with increasing dyspnea over the past week. Feels worse on stopping the steroids and antibiotics. She was recently on dexamethasone and doxycycline. She does use oxygen at home, normally 4 L and she is using 5 L. Does not have a nebulizer. Is using her albuterol every 4-5 hours. She also states that she has increased swelling in her bilateral feet, states that this is common when she takes steroids. 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 : Incontinence HEENT: Chronic vision loss Psych: None Musculoskeletal: Osteoarthritis, Chronic back pain Derm: None - Past Surgical History Past Surgical History: Yes General: Appendectomy Ortho: Hip replacement Cardiovascular: Other HEENT: Cataracts - Present Medications Home Medications: Ambulatory Orders Medication Instructions Recorded Confirmed Fluticasone [Flonase] 2 spr ANTOINE DAILY 09/22/15 06/25/18 Pravastatin [Pravachol] 40 mg PO DAILY 09/22/15 06/25/18 [id number] CD [Cardizem Cd] 120 mg PO DAILY 09/22/15 06/25/18 Furosemide 20 mg PO DAILY 02/27/17 06/25/18 Acetaminophen 1,000 mg PO DAILY PM PRN 06/25/18 06/25/18 Albuterol Sulfate [Albuterol 2 puffs IH PRN PRN 06/25/18 06/25/18 Sulfate Hfa] Clobetasol 0.05% Oint [Temovate 1 applic TOP PRN PRN 06/25/18 06/25/18 0.05% Oint] Docusate Sodium 250Mg Capsule 250 mg PO PRN PRN 06/25/18 06/25/18 [Colace 250Mg Capsule] Hydrocodone/Acetaminophen 1 tab PO Q6H PRN 06/25/18 06/25/18 [Hydrocodone-Acetamin 5-325 mg] Levothyroxine Sodium 125 mg PO DAILY 06/25/18 06/25/18 Tiotropium [place] [Spiriva] 18 mcg INH DAILY 06/25/18 06/25/18 Warfarin Sodium 2.5 - 5 mg PO DAILY 06/25/18 06/25/18 polyethylene glycoL 3350 [Miralax] 17 gm PO PRN PRN 06/25/18 06/25/18 Doxycycline Monohydrate 100 mg PO BID #14 tablet 06/01/19 Fluticasone Propion/Salmeterol 1 puffs INH BID 06/01/19 06/01/19 [Wixela 500-50 Inhub] Ipratropium [Atrovent] 1 puffs INH Q6H #1 inhaler 06/01/19 dexAMETHasone [Decadron] 4 mg PO DAILY #7 tablet 06/01/19 Albuterol Sulf [Ventolin Hfa 1 - 2 puffs INH Q4HR PRN #1 inhaler 06/10/19 Inhaler] predniSONE [Deltasone] 10 mg PO [id number] #42 tab 06/10/19 - Allergies Allergies/Adverse Reactions: Allergies Allergy/AdvReac Type Severity Reaction Status Date / Time Sulfa (Sulfonamide Allergy Unknown Verified 06/10/19 15:27 Antibiotics) - Social History Does the pt smoke?: No Smoking Status: Former smoker Does the pt drink ETOH?: No Does the pt have substance abuse?: No - Immunizations Immunizations are current?: Yes - POLST Patient has POLST: No PD ED PE NORMAL - Vitals Vital signs reviewed: Yes - General General: Alert and oriented X 3, No acute distress, Well developed/nourished - HEENT HEENT: Moist mucous membranes - Neck Neck: Supple, no meningeal sign - Cardiac Cardiac: RRR, Strong equal pulses - Respiratory Respiratory: No respiratory distress, Other (Diminished breath sounds and wheezing bilaterally) - Abdomen Abdomen: Soft, Non tender, Non distended - Derm Derm: Warm and dry - Extremities Extremities: Other (2+ bilateral lower extremity edema) - Neuro Neuro: Alert and oriented X 3 - Psych Psych: Normal mood, Normal affect Results - Vitals Vitals: Vital Signs - 24 hr 06/10/19 06/10/19 06/10/19 15:23 15:49 16:00 Temperature 36.7 C 36.7 C Heart Rate 79 80 88 Respiratory 20 18 18 Rate Blood Pressure 123/89 H 120/70 127/83 H O2 Saturation 92 93 93 06/10/19 06/10/19 06/10/19 17:00 17:45 18:00 Temperature Heart Rate 80 75 75 Respiratory 20 12 13 Rate Blood Pressure 123/67 O2 Saturation 93 Oxygen O2 Source [] Oxymizer O2 Source Nasal cannula Oxygen Flow Rate 5 - EKG (time done) 1607 Rate: Rate (enter#) (10) Rhythm: Atrial fibrillation [place]: Normal Ischemia: Non specific changes - Labs Labs: Laboratory Tests 06/10/19 06/10/19 06/10/19 15:42 15:42 15:42 WBC 17.4 H RBC 4.92 Hgb 15.1 Hct 46.3 MCV 94.1 MCH 30.7 MCHC 32.6 RDW 14.2 Plt Count 368 MPV 10.0 Neut # (Auto) Not Reportable Lymph # (Auto) Not Reportable [place] # (Auto) Not Reportable Eos # (Auto) Not Reportable Baso # (Auto) Not Reportable Absolute Nucleated RBC Not Reportable Total Counted 100 Band Neuts % (Manual) 1 Abnorm Lymph % (Manual) 0 Nucleated RBC % Not Reportable Neutrophils # (Manual) 9.2 H Lymphocytes # (Manual) 6.8 H Monocytes # (Manual) 1.0 Eosinophils # (Manual) 0.3 Basophils # (Manual) 0.0 Differential Comment MANUAL DIFFERENTIAL Platelet Estimate NORMAL (130-450,000) Platelet Morphology RARE GIANT PLATELETS RBC Morph Micro Appear NORMAL APPEARANCE Sodium 139 Potassium 3.3 L Chloride 100 L Carbon Dioxide 26 Anion Gap 13.0 BUN 28 H Creatinine 0.7 Estimated GFR (MDRD) 81 L Glucose 91 Calcium 8.2 L Total Bilirubin 0.3 AST 59 H ALT 106 H Alkaline Phosphatase 70 Troponin I High Sens 25.1 H* B-Natriuretic Peptide Total Protein 7.1 Albumin 3.6 Globulin 3.5 Albumin/Globulin Ratio 1.0 Lipase 34 06/10/19 15:55 WBC RBC Hgb Hct MCV MCH MCHC RDW Plt Count MPV Neut # (Auto) Lymph # (Auto) [place] # (Auto) Eos # (Auto) Baso # (Auto) Absolute Nucleated RBC Total Counted Band Neuts % (Manual) Abnorm Lymph % (Manual) Nucleated RBC % Neutrophils # (Manual) Lymphocytes # (Manual) Monocytes # (Manual) Eosinophils # (Manual) Basophils # (Manual) Differential Comment Platelet Estimate Platelet Morphology RBC Morph Micro Appear Sodium Potassium Chloride Carbon Dioxide Anion Gap BUN Creatinine Estimated GFR (MDRD) Glucose Calcium Total Bilirubin AST ALT Alkaline Phosphatase Troponin I High Sens B-Natriuretic Peptide 111 H Total Protein Albumin Globulin Albumin/Globulin Ratio Lipase - Rads (name of study) cxr Radiology: Prelim report reviewed, EMP read contemporaneously, See rad report (COPD. No acute cardiopulmonary abnormality. ) PD MEDICAL DECISION MAKING - ED course Complexity details: reviewed results, re-evaluated patient, considered differential, d/w patient, d/w family ED course: Noe bandage is applied for pedal edema. Recommend she elevate her legs at home. No acute findings on chest x-ray. Will place on a steroid taper for home. After steroids and nebulizer treatment, she is back to her normal O2 levels. Patient counseled regarding signs and symptoms for which I believe and urgent re-evaluation would be necessary. Patient with good understanding of and agreement to plan and is comfortable going home at this time This document was made in part using voice recognition software. While efforts are made to proofread this document, sound alike and grammatical errors may occur. Departure - Departure Disposition: 01 Home, Self Care Clinical Impression: COPD with exacerbation Condition: Good Instructions: ED COPD Flare Follow-Up: Angelo Mclaughlin MD [Primary Care Provider] - Within 1 week Prescriptions: Albuterol Sulf [Ventolin Hfa Inhaler] 1 - 2 puffs INH Q4HR PRN #1 inhaler PRN Reason: Shortness Of Air/Wheezing predniSONE [Deltasone] 10 mg PO [id number] #42 tab Comments: Use the steroids as prescribed. Return if you worsen. Follow-up with your doctor for a recheck within 1 week. Your x-ray does not show any pneumonia today. Discharge Date/Time: 06/10/19 18:21
[2019-06-10] MEDS ORDERED: ALBUTEROL NEB 2.5 MG/3 ML INH STA (17:20)
[2019-06-10] MEDS ORDERED: predniSONE 20 MG TABLET PO STA (17:53)
[2019-06-10 18:06] VITALS: BP 123/67
== END 2019-06-10 18:21 | disposition home or self-care (01) ==
LOC: ED 15:16
DX: J44.1 Chronic obstructive pulmonary disease with (acute) exacerbation (principal); Z99.81 Dependence on supplemental oxygen; R60.0 Localized edema; I48.91 Unspecified atrial fibrillation; Z79.01 Long term (current) use of anticoagulants; I10 Essential (primary) hypertension; Z87.891 Personal history of nicotine dependence
CPT/HCPCS: 36415; 71045; 80053; 83690; 83880; 84484; 85025; 93005; 94640; 96361; 96374; 99284; J7512

== ENCOUNTER 2020-07-23 11:28 | Outpatient (CLI) | payer MEDICARE, OTHER, MEDICAID ==
--- NOTE | 2020-07-23 12:29 | XRAY Report ---
PROCEDURE: Abdomen 2 View X-Ray INDICATIONS: ABD PX, RLQ TECHNIQUE: 2 views of the abdomen were acquired. COMPARISON: CT of abdomen and pelvis dated 02/27/2017 FINDINGS: Surgical changes and devices: None patient is status post right hip arthroplasty.. Bowel: No pneumoperitoneum. The bowel gas pattern is nonobstructive. Moderate fecal stasis througho ut the colon is seen.. Soft tissues: No masses; visualized solid organ contours appear normal in size. No suspicious abdom inal calcifications. Bones: Severe left hip joint osteoarthritic changes are noted. Degenerative disc disease throughout l ower lumbar spine is seen. IMPRESSION: 1. No evidence of bowel obstruction or gross free air. Mild to moderate constipation. 2. Prior right total hip arthroplasty. Severe left hip joint osteoarthritis. No evidence of avascular necrosis of femoral head. Reviewed by: José Miguel Lindsey MD on 07/23/2020 12:28 PM PST Approved by: José Miguel Lindsey MD on 07/23/2020 12:28 PM PST Station ID: [id number]
[2020-07-23 15:54] LABS: BASOPHILS % (AUTO) 0.5 %; EOSINOPHILS # (AUTO) 0.1 10^3/uL (0.0-0.7); EOSINOPHILS % (AUTO) 1.3 %; HCT - HEMATOCRIT 42.7 % (37.0-47.0); HGB - HEMOGLOBIN 13.5 g/dL (12.0-16.0); LYMPHOCYTES # (AUTO) 2.4 10^3/uL (1.5-3.5); LYMPHOCYTES % (AUTO) 31.6 %; MEAN CORPUSCULAR HEMOGLOBIN 30.5 pg (27.0-31.0); MEAN CORPUSCULAR HGB CONC 31.6 g/dL (32.0-36.0); MEAN CORPUSCULAR VOLUME 96.6 fL (81.0-99.0); MEAN PLATELET VOLUME 10.8 fL (7.9-10.8); MONOCYTES # (AUTO) 0.7 10^3/uL (0.0-1.0); NEUTROPHILS # (AUTO) 4.3 10^3/uL (1.5-6.6); NEUTROPHILS % (AUTO) 57.1 %; PLT - PLATELET COUNT 311 10^3/uL (130-450); RED BLOOD COUNT 4.42 10^6/uL (4.20-5.40); RED CELL DISTRIBUTION WIDTH 14.3 % (12.0-15.0); WHITE BLOOD COUNT 7.6 x10^3/uL (4.8-10.8)
[2020-07-23 16:23] LABS: CALCIUM 9.3 mg/dL (8.5-10.3); CREATININE 0.9 mg/dL (0.4-1.0); POTASSIUM 3.7 mmol/L (3.5-5.0)
[2020-07-23 17:11] LABS: BILIRUBIN,URINE NEGATIVE (NEGATIVE); GLUCOSE, URINE (UA) NEGATIVE (NEGATIVE); KETONES,URINE (UA) NEGATIVE (NEGATIVE); LEUKOCYTE ESTERASE, URINE TRACE (NEGATIVE); NITRITE,URINE NEGATIVE (NEGATIVE); OCCULT BLOOD,URINE NEGATIVE (NEGATIVE); PROTEIN,URINE NEGATIVE (NEGATIVE); UROBILINOGEN,URINE 0.2 (NORMAL) E.U./dL (NORMAL)
[2020-07-23 17:13] LABS: CLARITY,URINE CLEAR (CLEAR)
[2020-07-23 17:18] LABS: BACTERIA,URINE Moderate /HPF (None Seen); RBC,URINE 0-5 /HPF (0-5); SQUAMOUS EPITHELIAL CELL,UR FEW Squamous (<= Few); WBC,URINE 0-3 /HPF (0-5)
[2020-07-23 17:19] LABS: CASTS, URINE 0-2 Hyaline Casts /LPF
== END 2020-07-23 11:29 | disposition home or self-care (01) ==
LOC: DI.S 11:28
PROVIDERS: ATTEND Registered Nurse
DX: R10.31 Right lower quadrant pain (principal); K59.00 Constipation, unspecified; M16.12 Unilateral primary osteoarthritis, left hip; Z96.641 Presence of right artificial hip joint
CPT/HCPCS: 36415; 80048; 81001; 82150; 83690; 85025; 87077; 87086; 87181

== ENCOUNTER 2020-08-16 10:34 | Emergency (ER) | payer MEDICARE, OTHER, MEDICAID ==
[2020-08-16 11:04] LABS: BILIRUBIN,URINE NEGATIVE (NEGATIVE); GLUCOSE, URINE (UA) NEGATIVE (NEGATIVE); KETONES,URINE (UA) NEGATIVE (NEGATIVE); LEUKOCYTE ESTERASE, URINE NEGATIVE (NEGATIVE); NITRITE,URINE NEGATIVE (NEGATIVE); OCCULT BLOOD,URINE NEGATIVE (NEGATIVE); PH,URINE 5.5 PH (5.0-7.5); PROTEIN,URINE NEGATIVE (NEGATIVE); UROBILINOGEN,URINE 0.2 (NORMAL) E.U./dL (NORMAL)
[2020-08-16 11:06] LABS: BASOPHILS # (AUTO) 0.1 10^3/uL (0.0-0.1); BASOPHILS % (AUTO) 0.6 %; EOSINOPHILS # (AUTO) 0.1 10^3/uL (0.0-0.7); EOSINOPHILS % (AUTO) 1.3 %; HCT - HEMATOCRIT 44.9 % (37.0-47.0); HGB - HEMOGLOBIN 14.3 g/dL (12.0-16.0); LYMPHOCYTES # (AUTO) 3.2 10^3/uL (1.5-3.5); LYMPHOCYTES % (AUTO) 32.3 %; MEAN CORPUSCULAR HEMOGLOBIN 30.8 pg (27.0-31.0); MEAN CORPUSCULAR HGB CONC 31.8 g/dL (32.0-36.0); MEAN CORPUSCULAR VOLUME 96.6 fL (81.0-99.0); MEAN PLATELET VOLUME 9.9 fL (7.9-10.8); MONOCYTES # (AUTO) 0.8 10^3/uL (0.0-1.0); MONOCYTES % (AUTO) 8.1 %; NEUTROPHILS # (AUTO) 5.7 10^3/uL (1.5-6.6); NEUTROPHILS % (AUTO) 57.2 %; PLT - PLATELET COUNT 345 10^3/uL (130-450); RED BLOOD COUNT 4.65 10^6/uL (4.20-5.40); RED CELL DISTRIBUTION WIDTH 14.2 % (12.0-15.0); WHITE BLOOD COUNT 9.9 x10^3/uL (4.8-10.8)
[2020-08-16 11:06] LABS: CLARITY,URINE CLEAR (CLEAR)
[2020-08-16 11:19] LABS: ALBUMIN 4.6 g/dL (3.2-5.5); ALBUMIN/GLOBULIN RATIO 1.3 (1.0-2.2); CALCIUM 9.4 mg/dL (8.5-10.3); CREATININE 0.8 mg/dL (0.4-1.0); POTASSIUM 3.8 mmol/L (3.5-5.0); TOTAL PROTEIN 8.1 g/dL (6.7-8.2)
[2020-08-16 12:42] VITALS: BP 131/67
[2020-08-16] MEDS ORDERED: ONDANSETRON 4 MG/2 ML VIAL IVP STA (12:50)
[2020-08-16] MEDS ORDERED: LACTATED RINGERS 1,000 ML IV STA (12:50)
[2020-08-16] MEDS ORDERED: IOPAMIDOL-300 100 ML VIAL ONE (13:05)
[2020-08-16] MEDS ORDERED: LACTATED RINGERS 500 ML IV STA (13:45)
--- NOTE | 2020-08-16 14:05 | CT Report ---
PROCEDURE: Abdomen/Pelvis W INDICATIONS: BL LQ pain X 3 weeks CONTRAST: IV CONTRAST: Isovue 300 ml: 100 PO CONTRAST: *NO PO CONTRAST TECHNIQUE: After the administration of IV contrast, 5 mm thick sections acquired from the diaphragms to the symp hysis. 5 mm thick coronal and sagittal reformats were acquired. For radiation dose reduction, the f ollowing was used: automated exposure control, adjustment of mA and/or kV according to patient size. COMPARISON: 02/27/2017 FINDINGS: Image quality: Excellent. ABDOMEN: Lung bases: Lung bases demonstrate severe emphysematous change. Heart size is normal. Mitral and a ortic valvular calcification. Solid organs: Liver and spleen are normal in size and enhancement. Gallbladder contains a small aura unt of hyperdense material layering dependently. No pericholecystic inflammation. Biliary system is non dilated. Pancreas enhances normally. Tiny left adrenal nodules too small to characterize, stable . Kidneys demonstrate normal size and enhancement, without hydronephrosis. Cysts arising from the lo wer pole right and upper pole left kidney. Cyst in the left mid pole has increased in size now measur ing 2.4 cm, previously seen is a hyperdense 1.2 cm cortical medullary cyst. Peritoneum and bowel: Moderate diverticular disease of the descending colon and extensive sigmoid di verticulosis. No surrounding inflammation. Many sigmoid diverticula are hyperdense suggesting impacti on normal quantity of stool present in the colon. Small bowel is relatively decompressed. Bowel loops demonstrate normal wall thickness and caliber. No free fluid or air. Nodes and vessels: No retroperitoneal or mesenteric adenopathy by size criteria. Aorta and inferior vena cava are normal in size. Heavy abdominal aortic calcification. Miscellaneous: Moderate size fat-containing wide necked umbilical hernia without inflammatory changes .. PELVIS: Genitourinary: Bladder wall thickness is normal. Uterus and ovaries are age-appropriate. Miscellaneous: No inguinal hernias or adenopathy. Bones: Right hip arthroplasty. Severe progressive degenerative changes the left hip. No suspicious cj ny lesions. No vertebral body compression fractures. IMPRESSION: 1. No acute process. 2. Extensive sigmoid diverticulosis with chronic appearing diverticular impaction. 3. Further characterization of enlarging left renal cyst, possibly complex. Recommend renal protocol contrast-enhanced CT or MRI if the patient can breath-hold. 4. Cholelithiasis versus gallbladder sludge. No CT evidence of acute cholecystitis. 5. Severe, progressive left hip degeneration. Reviewed by: Carolyn Sarmiento MD on 08/16/2020 1:03 PM SIVAKUMAR Approved by: Carolyn Sarmiento MD on 08/16/2020 1:03 PM SIVAKUMAR Station ID: [id number]
[2020-08-16] MEDS ORDERED: IOPAMIDOL-300 100 ML VIAL IVP ONE (14:18)
--- NOTE | 2020-08-16 14:36 | ED Physician Documentation ---
History of Present Illness - Stated complaint Stated Complaint: ABD PX/NAUSEA - Chief complaint Chief Complaint: Abd Pain - History obtained from History obtained from: Patient, Family (daughter) - Additonal information Additional information: 79-year-old woman with past medical history of COPD on home oxygen at 5 L, atrial fibrillation, thyroid disease, presents with abdominal pain intermittent over the past 3 weeks, sometimes in the bilateral lower quadrant sometimes in the right upper quadrant, associated with nausea today. She states that symptoms initially improved after being prescribed antibiotics for a UTI but have not worsened since Sunday. Her pain is migratory, intermittently radiating diffusely around the abdomen, associated with frequent belching. She does state that she has started taking potassium pills and eats them on empty stomach.Denies fever, vomiting, diarrhea, blood in the stool, chest pain or shortness of breath. She had a normal bowel movement yesterday. Review of Systems Ten Systems: 10 systems reviewed and negative Constitutional: denies: Fever, Chills Respiratory: denies: Dyspnea GI: reports: Abdominal Pain, Nausea. 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 : Incontinence HEENT: Chronic vision loss Psych: None Musculoskeletal: Osteoarthritis, Chronic back pain Derm: None - Past Surgical History Past Surgical History: Yes General: Appendectomy Ortho: Hip replacement Cardiovascular: Other HEENT: Cataracts - Present Medications Home Medications: Ambulatory Orders Medication Instructions Recorded Confirmed Fluticasone [Flonase] 2 spr ANTOINE DAILY 09/22/15 08/16/20 Pravastatin [Pravachol] 40 mg PO DAILY 09/22/15 08/16/20 [id number] CD [Cardizem Cd] 120 mg PO DAILY 09/22/15 08/16/20 Furosemide 20 mg PO DAILY 02/27/17 08/16/20 Acetaminophen 1,000 mg PO DAILY PM PRN 06/25/18 08/16/20 Albuterol Sulfate [Albuterol 2 puffs IH PRN PRN 06/25/18 08/16/20 Sulfate Hfa] Clobetasol 0.05% Oint [Temovate 1 applic TOP PRN PRN 06/25/18 08/16/20 0.05% Oint] Docusate Sodium 250Mg Capsule 250 mg PO PRN PRN 06/25/18 08/16/20 [Colace 250Mg Capsule] Hydrocodone/Acetaminophen 1 tab PO Q6H PRN 06/25/18 08/16/20 [Hydrocodone-Acetamin 5-325 mg] Levothyroxine Sodium 125 mg PO DAILY 06/25/18 08/16/20 Tiotropium [place] [Spiriva] 18 mcg INH DAILY 06/25/18 08/16/20 Warfarin Sodium 2.5 - 5 mg PO DAILY 06/25/18 08/16/20 polyethylene glycoL 3350 [Miralax] 17 gm PO PRN PRN 06/25/18 08/16/20 Fluticasone Propion/Salmeterol 1 puffs INH BID 06/01/19 08/16/20 [Wixela 500-50 Inhub] Ipratropium [Atrovent] 1 puffs INH Q6H #1 inhaler 06/01/19 08/16/20 Albuterol Sulf [Ventolin Hfa 1 - 2 puffs INH Q4HR PRN #1 inhaler 06/10/19 08/16/20 Inhaler] - Allergies Allergies/Adverse Reactions: Allergies Allergy/AdvReac Type Severity Reaction Status Date / Time Sulfa (Sulfonamide Allergy Unknown Verified 08/16/20 10:39 Antibiotics) - Social History Does the pt smoke?: No Smoking Status: Former smoker Does the pt drink ETOH?: No Does the pt have substance abuse?: No - Immunizations Immunizations are current?: Yes - POLST Patient has POLST: No PD ED PE NORMAL - Vitals Vital signs reviewed: Yes - General General: Alert and oriented X 3, No acute distress, Well developed/nourished - HEENT HEENT: Atraumatic, PERRL, EOMI - Neck Neck: Supple, no meningeal sign - Cardiac Cardiac: RRR - Respiratory Respiratory: No respiratory distress, Clear bilaterally - Abdomen Abdomen: Non tender, Non distended, Other (discomfort in RLQ. neg huggins sign) - Female Female : Deferred - Rectal Rectal: Deferred - Back Back: No CVA TTP - Derm Derm: Normal color, Warm and dry - Extremities Extremities: No deformity - Neuro Neuro: Alert and oriented X 3 - Psych Psych: Normal mood, Normal affect Results - Vitals Vitals: Vital Signs - 24 hr 08/16/20 08/16/20 10:39 12:41 Temperature 36.7 C Heart Rate 100 89 Respiratory 22 16 Rate Blood Pressure 134/90 H 131/67 H O2 Saturation 92 97 Oxygen O2 Source [Without Activity] Oxymizer O2 Source Nasal cannula - Labs Labs: Laboratory Tests 08/16/20 08/16/20 08/16/20 10:52 11:00 11:00 WBC 9.9 RBC 4.65 Hgb 14.3 Hct 44.9 MCV 96.6 MCH 30.8 MCHC 31.8 L RDW 14.2 Plt Count 345 MPV 9.9 Neut # (Auto) 5.7 Lymph # (Auto) 3.2 [place] # (Auto) 0.8 Eos # (Auto) 0.1 Baso # (Auto) 0.1 Absolute Nucleated RBC 0.00 Nucleated RBC % 0.0 Sodium 141 Potassium 3.8 Chloride 99 L Carbon Dioxide 29 Anion Gap 13.0 BUN 14 Creatinine 0.8 Estimated GFR (MDRD) 69 L Glucose 120 H Calcium 9.4 Total Bilirubin 1.0 AST 24 ALT 20 Alkaline Phosphatase 73 Total Protein 8.1 Albumin 4.6 Globulin 3.5 Albumin/Globulin Ratio 1.3 Lipase 24 Urine Color LIGHT YELLOW Urine Clarity CLEAR Urine pH 5.5 Ur Specific [place] <=1.005 Urine Protein NEGATIVE Urine Glucose (UA) NEGATIVE Urine Ketones NEGATIVE Urine Occult Blood NEGATIVE Urine Nitrite NEGATIVE Urine Bilirubin NEGATIVE Urine Urobilinogen 0.2 (NORMAL) Ur Leukocyte Esterase NEGATIVE Ur Microscopic Review NOT INDICATED Urine Culture Comments NOT INDICATED PD MEDICAL DECISION MAKING - ED course Complexity details: reviewed results, d/w patient, d/w family ED course: 79-year-old woman presents with abdominal pain of unknown origin. We did discuss that it is possible her potassium pills are causing an upset stomach which may be contributing her belching. Advised to hydrate well and drink a large meal. She will follow up with her primary doctor this week. We discussed the incidental findings on her CT and she will also follow-up with the complex renal cyst. Strict return precautions given. Departure - Departure Disposition: 01 Home, Self Care Clinical Impression: Abdominal pain Condition: Good Instructions: ED Abdominal Pain Unkn Cause Follow-Up: Kwame Medrano MD [Provider Admit Priv/Credential] - Comments: You were seen in the emergency department for abdominal pain of unknown cause. Your urinalysis was normal. Your lab work was normal. Your CT showed a left kidney cyst that you need to have a follow-up CT or MRI for. You also have diverticulosis, a bad left hip, and gallbladder sludge or stones. If you decide that you want to try to get your gallbladder taken out than Dr. Medrano is one of our surgeons that can do it. Please follow-up with your primary doctor in regards to these results. Return to the emergency department if you develop any new or worsening symptoms or have other concerns.
== END 2020-08-16 14:44 | disposition home or self-care (01) ==
LOC: ED 10:34
DX: R10.31 Right lower quadrant pain (principal); R11.0 Nausea; N28.1 Cyst of kidney, acquired; K57.30 Diverticulosis of large intestine without perforation or abscess without bleeding; K82.9 Disease of gallbladder, unspecified; M16.12 Unilateral primary osteoarthritis, left hip; I10 Essential (primary) hypertension; I48.91 Unspecified atrial fibrillation; Z79.01 Long term (current) use of anticoagulants; J44.9 Chronic obstructive pulmonary disease, unspecified; Z99.81 Dependence on supplemental oxygen; Z87.891 Personal history of nicotine dependence
CPT/HCPCS: 36415; 74177; 80053; 81003; 83690; 85025; 96374; 99284; J7120; Q9967; 81001; 87086

== ENCOUNTER 2020-09-27 08:00 | Outpatient (CLI) | payer MEDICARE, OTHER, MEDICAID | END 2020-09-27 23:59 | disposition home or self-care (01) | LOC: LAB.F 08:00 | PROVIDERS: ATTEND Physician Assistant | DX: I48.91 Unspecified atrial fibrillation (principal); Z79.01 Long term (current) use of anticoagulants ==

== ENCOUNTER 2020-11-22 10:33 | Outpatient (CLI) | payer MEDICARE, OTHER, MEDICAID ==
[2020-11-22 11:08] LABS: CREATININE 0.6 mg/dL (0.4-1.0)
[2020-11-22] MEDS ORDERED: IOVERSOL 320 100 ML VIAL IVP ONE ×2 (11:41→12:06)
--- NOTE | 2020-11-22 16:42 | CT Report ---
PROCEDURE: ABDOMEN W/WO INDICATIONS: COMPLEX RENAL CYST, L CONTRAST: IV CONTRAST: Optiray 320 ml: 140 PO CONTRAST: *NO PO CONTRAST TECHNIQUE: Noncontrast and postcontrast late arterial and excretory phase 5 mm thick sections acquired from the diaphragms to the symphysis. 5 mm coronal and sagittal reformats were then performed. For radiation dose reduction, the following was used: automated exposure control, adjustment of mA and/or kV acco rding to patient size. COMPARISON: CT abdomen and pelvis 08/16/2020, 02/27/2017. FINDINGS: Image quality: Excellent. Lung bases: Left lower lobe. Nodule measuring 0.6 cm, (01/05), unchanged since 2017 suggesting a chaparrita gn etiology. Severe emphysematous change. Small paraesophageal lymph node measuring 1 cm, (11/21), pre viously 0.9 cm in 2017. Heart size is normal. Solid organs: Liver and spleen are normal in size and enhancement. Suspect layering sludge or small gallstones. Biliary system is non dilated. Pancreas enhances normally. No splenomegaly. Mild thicke russell of the left adrenal gland is unchanged since 2017. Kidneys are normal in size. No hydronephrosis or nephrolithiasis. -Left kidney superior pole exophytic cyst measuring 1.3 x 0.8 cm, (13/), previously 1.5 x 1.3 cm in 2017. -Left kidney mid cortical cyst measuring 2.4 x 1.9 cm, (18/30), previously remeasured 2.6 x 2.1 cm. H ypodense cyst at this site in 2017 measuring 1.2 cm. -Right kidney inferior pole simple cyst measuring 1.3 cm, (18/41), previously 1.2 cm. Peritoneum and bowel: Unenhanced bowel loops are normal in caliber and wall thickness. No free flui d or air. Nodes and vessels: No retroperitoneal or mesenteric adenopathy by size criteria. Aorta and inferior vena cava are normal in size. Circumferential calcified atherosclerotic plaque. Miscellaneous: Abdominal wall hernias containing fat. Adjacent loop of colon. Bones: No suspicious bony lesions. No vertebral body compression fractures. IMPRESSION: 1. Mid left kidney cortical cyst measuring 2.4 cm is stable to slightly decrease in size is mildly co mplex. In 2017 there was a smaller hypodense cyst at this site. 2. Superior pole left kidney exophytic cyst measuring 1.3 cm is mildly complex. This cyst is slightly decreased in size compared to 2017. 3. No kidney stones. No hydronephrosis. Reviewed by: Hawk Vuong MD on 11/22/2020 4:41 PM PDT Approved by: Hawk Vuong MD on 11/22/2020 4:41 PM PDT Station ID: [id number]
== END 2020-11-22 10:34 | disposition home or self-care (01) ==
LOC: LAB 10:33 → DI 10:34
PROVIDERS: ATTEND Physician Assistant
DX: N28.1 Cyst of kidney, acquired (principal)
CPT/HCPCS: 36415; 74170; 82565; Q9967

== ENCOUNTER 2021-01-02 17:35 | Emergency (ER) | payer MEDICARE, OTHER, MEDICAID ==
[2021-01-02] MEDS ORDERED: ONDANSETRON 4 MG/2 ML VIAL IVP STA ×2 (18:07→22:39)
[2021-01-02] MEDS ORDERED: MORPHINE 2 MG/ML CARPUJECT IVP STA ×2 (18:07→21:33)
--- NOTE | 2021-01-02 18:08 | ED Physician Documentation ---
PD HPI ABD PAIN - Stated complaint Stated Complaint: ABD PX - Chief complaint Chief Complaint: Abd Pain - History obtained from History obtained from: Patient, Family - Additional information Additional information: 80-year-old woman with history of severe COPD on 5 L of oxygen and atrial fibrillation on warfarin had had a remote appendectomy. She had normal bowel movements 2 days ago but nothing yesterday. It is common for her to get constipated, and she took some MiraLAX and today started developed severe cramps after which she took an enema with only minor output. Now pain is moderate to s evere and when she has cramps even worse with mild nausea. No fevers. No other abdominal surgeries besides the appendicitis. 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 HEENT: Chronic vision loss Psych: None Musculoskeletal: Osteoarthritis, Chronic back pain Derm: None - Past Surgical History Past Surgical History: Yes General: Appendectomy Ortho: Hip replacement Cardiovascular: Other HEENT: Cataracts - Present Medications Home Medications: Ambulatory Orders Medication Instructions Recorded Confirmed Fluticasone [Flonase] 2 spr ANTOINE DAILY 09/22/15 01/02/21 Pravastatin [Pravachol] 40 mg PO DAILY 09/22/15 01/02/21 [id number] CD [Cardizem Cd] 120 mg PO DAILY 09/22/15 01/02/21 Furosemide 20 mg PO DAILY 02/27/17 01/02/21 Acetaminophen 1,000 mg PO DAILY PM PRN 06/25/18 01/02/21 Albuterol Sulfate [Albuterol 2 puffs IH PRN PRN 06/25/18 01/02/21 Sulfate Hfa] Clobetasol 0.05% Oint [Temovate 1 applic TOP PRN PRN 06/25/18 01/02/21 0.05% Oint] Docusate Sodium 250Mg Capsule 250 mg PO PRN PRN 06/25/18 01/02/21 [Colace 250Mg Capsule] Hydrocodone/Acetaminophen 1 tab PO Q6H PRN 06/25/18 01/02/21 [Hydrocodone-Acetamin 5-325 mg] Levothyroxine Sodium 125 mg PO DAILY 06/25/18 01/02/21 Tiotropium [place] [Spiriva] 18 mcg INH DAILY 06/25/18 01/02/21 Warfarin Sodium 2.5 - 5 mg PO DAILY 06/25/18 01/02/21 polyethylene glycoL 3350 [Miralax] 17 gm PO PRN PRN 06/25/18 01/02/21 Fluticasone Propion/Salmeterol 1 puffs INH BID 06/01/19 01/02/21 [Wixela 500-50 Inhub] Ipratropium [Atrovent] 1 puffs INH Q6H #1 inhaler 06/01/19 01/02/21 Lidocaine Ointment 5% [Xylocaine 35.44 gm TOP BID PRN #1 tub 11/05/20 01/02/21 Ointment 5%] Mupirocin 2% Oint [Bactroban 2% 1 applic TOP BID #22 gm 11/05/20 01/02/21 Oint] QUEtiapine [SEROquel] 25 mg PO QPM 01/02/21 01/02/21 - Allergies Allergies/Adverse Reactions: Allergies Allergy/AdvReac Type Severity Reaction Status Date / Time Sulfa (Sulfonamide Allergy Unknown Verified 01/02/21 19:19 Antibiotics) - Social History Does the pt smoke?: No Smoking Status: Former smoker Does the pt drink ETOH?: No Does the pt have substance abuse?: No - Immunizations Immunizations are current?: Yes - POLST Patient has POLST: No PD ED PE NORMAL - Vitals Vital signs reviewed: Yes - General General: Alert and oriented X 3, No acute distress - HEENT HEENT: PERRL, EOMI - Neck Neck: Supple, no meningeal sign, No bony TTP - Cardiac Cardiac: Other (Irregularly irregular without murmur) - Respiratory Respiratory: No respiratory distress - Abdomen Abdomen: Normal bowel sounds, Soft, Other (Diminished to absent bowel tones, low abdominal tenderness without surgical signs) - Back Back: No CVA TTP, No spinal TTP - Derm Derm: Normal color, Warm and dry - Extremities Extremities: No edema, No calf tenderness / cord - Neuro Neuro: Alert and oriented X 3, Normal speech Results - Vitals Vitals: Vital Signs - 24 hr 08/01/02/21 01/02/21 17:49 19:10 20:44 Temperature 36.1 C L 36.1 C L Heart Rate 90 76 75 Respiratory 16 16 15 Rate Blood Pressure 144/70 H 130/66 113/60 O2 Saturation 91 L 95 99 01/02/21 01/02/21 01/02/21 21:25 21:30 21:59 Temperature 36.2 C L 36.2 C L Heart Rate 75 86 68 Respiratory 16 16 14 Rate Blood Pressure 121/60 121/60 128/94 H O2 Saturation 96 97 96 01/02/21 01/02/21 22:40 22:50 Temperature 36.2 C L Heart Rate 89 82 Respiratory 13 17 Rate Blood Pressure 123/78 123/78 O2 Saturation 96 97 Oxygen O2 Source [Without Activity] Oxymizer O2 Source Nasal cannula Oxygen Flow Rate 4 - Labs Labs: Laboratory Tests 01/02/21 01/02/21 01/02/21 18:30 18:30 18:30 WBC 9.7 RBC 4.54 Hgb 14.0 Hct 42.6 MCV 93.8 MCH 30.8 MCHC 32.9 RDW 13.9 Plt Count 338 MPV 10.1 Neut # (Auto) 6.7 H Lymph # (Auto) 2.1 [place] # (Auto) 0.7 Eos # (Auto) 0.2 Baso # (Auto) 0.0 Absolute Nucleated RBC 0.00 Nucleated RBC % 0.0 PT 29.1 H INR 2.8 H Sodium 139 Potassium 3.3 L Chloride 97 L Carbon Dioxide 30 Anion Gap 12.0 BUN 11 Creatinine 0.7 Estimated GFR (MDRD) 81 L Glucose 112 H Calcium 9.4 Total Bilirubin 0.6 AST 25 ALT 23 Alkaline Phosphatase 76 Total Protein 7.8 Albumin 4.3 Globulin 3.5 Albumin/Globulin Ratio 1.2 Lipase 23 Urine Color Urine Clarity Urine pH Ur Specific [place] Urine Protein Urine Glucose (UA) Urine Ketones Urine Occult Blood Urine Nitrite Urine Bilirubin Urine Urobilinogen Ur Leukocyte Esterase Ur Microscopic Review Urine Culture Comments Nasal Adenovirus (PCR) Nasal B. parapertussis DNA (PCR) Nasal Coronavir 229E PCR Nasal Coronavir HKU1 PCR Nasal Coronavir NL63 PCR Nasal Coronavir OC43 PCR Nasal Enterovir/Rhinovir PCR Nasal Influenza B PCR Nasal Influenza A PCR Nasal Parainfluen 1 PCR Nasal Parainfluen 2 PCR Nasal Parainfluen 3 PCR Nasal Parainfluen 4 PCR Nasal RSV (PCR) Nasal B.pertussis DNA PCR Nasal C.pneumoniae (PCR) [place] Human Metapneumo PCR Nasal M.pneumoniae (PCR) Nasal SARS-CoV-2 (PCR) 01/02/21 01/02/21 19:58 21:23 WBC RBC Hgb Hct MCV MCH MCHC RDW Plt Count MPV Neut # (Auto) Lymph # (Auto) [place] # (Auto) Eos # (Auto) Baso # (Auto) Absolute Nucleated RBC Nucleated RBC % PT INR Sodium Potassium Chloride Carbon Dioxide Anion Gap BUN Creatinine Estimated GFR (MDRD) Glucose Calcium Total Bilirubin AST ALT Alkaline Phosphatase Total Protein Albumin Globulin Albumin/Globulin Ratio Lipase Urine Color YELLOW Urine Clarity CLEAR Urine pH 6.5 Ur Specific [place] 1.010 Urine Protein NEGATIVE Urine Glucose (UA) NEGATIVE Urine Ketones NEGATIVE Urine Occult Blood NEGATIVE Urine Nitrite NEGATIVE Urine Bilirubin NEGATIVE Urine Urobilinogen 0.2 (NORMAL) Ur Leukocyte Esterase NEGATIVE Ur Microscopic Review NOT INDICATED Urine Culture Comments NOT INDICATED Nasal Adenovirus (PCR) NOT DETECTED Nasal B. parapertussis DNA (PCR) NOT DETECTED Nasal Coronavir 229E PCR NOT DETECTED Nasal Coronavir HKU1 PCR NOT DETECTED Nasal Coronavir NL63 PCR NOT DETECTED Nasal Coronavir OC43 PCR NOT DETECTED Nasal Enterovir/Rhinovir PCR NOT DETECTED Nasal Influenza B PCR NOT DETECTED Nasal Influenza A PCR NOT DETECTED Nasal Parainfluen 1 PCR NOT DETECTED Nasal Parainfluen 2 PCR NOT DETECTED Nasal Parainfluen 3 PCR NOT DETECTED Nasal Parainfluen 4 PCR NOT DETECTED Nasal RSV (PCR) NOT DETECTED Nasal B.pertussis DNA PCR NOT DETECTED Nasal C.pneumoniae (PCR) NOT DETECTED [place] Human Metapneumo PCR NOT DETECTED Nasal M.pneumoniae (PCR) NOT DETECTED Nasal SARS-CoV-2 (PCR) NOT DETECTED PD MEDICAL DECISION MAKING - ED course ED course: 80-year-old woman had not had a bowel movement yesterday but today developed developed right lower quadrant pain and cramps. She has severe comorbidities including severe COPD on 5L O2 and A. fib on warfarin. CT of the belly demonstrating incarcerated inguinal hernia with obstruction. Case discussed by phone with our on-call surgeon, Dr. Dickinson who is very hesitant to take her to the OR based on her comorbidities. Urgent calls were made to tertiary facilities that have pulmonary and cardiology coverage. She was graciously excepted to [facility] by Dr. Anna their on-call surgeon at approximately 9:50 PM and cobras were completed. He did request FFP and vitamin K to begin to correct her coagulopathy and this was ordered. However notified by blood bank that it would not be readied in time for transport. Did get vit K though. Departure - Departure Disposition: 02 Transfer Acute Care Hosp Clinical Impression: Small bowel obstruction, Incarcerated hernia Atrial fibrillation Qualifiers: Atrial fibrillation type: unspecified Qualified Code(s): I48.91 - Unspecified atrial fibrillation Condition: Serious
[2021-01-02] MEDS ORDERED: IOVERSOL 320 50 ML VIAL ONE (18:30)
[2021-01-02] MEDS ORDERED: IOPAMIDOL-300 50 ML VIAL ONE (18:30)
[2021-01-02 18:38] LABS: BASOPHILS % (AUTO) 0.3 %; EOSINOPHILS # (AUTO) 0.2 10^3/uL (0.0-0.7); EOSINOPHILS % (AUTO) 1.7 %; HCT - HEMATOCRIT 42.6 % (37.0-47.0); LYMPHOCYTES # (AUTO) 2.1 10^3/uL (1.5-3.5); LYMPHOCYTES % (AUTO) 21.5 %; MEAN CORPUSCULAR HEMOGLOBIN 30.8 pg (27.0-31.0); MEAN CORPUSCULAR HGB CONC 32.9 g/dL (32.0-36.0); MEAN CORPUSCULAR VOLUME 93.8 fL (81.0-99.0); MEAN PLATELET VOLUME 10.1 fL (7.9-10.8); MONOCYTES # (AUTO) 0.7 10^3/uL (0.0-1.0); MONOCYTES % (AUTO) 7.2 %; NEUTROPHILS # (AUTO) 6.7 10^3/uL (1.5-6.6); NEUTROPHILS % (AUTO) 68.9 %; PLT - PLATELET COUNT 338 10^3/uL (130-450); RED BLOOD COUNT 4.54 10^6/uL (4.20-5.40); RED CELL DISTRIBUTION WIDTH 13.9 % (12.0-15.0); WHITE BLOOD COUNT 9.7 x10^3/uL (4.8-10.8)
[2021-01-02 18:51] LABS: ALBUMIN 4.3 g/dL (3.2-5.5); ALBUMIN/GLOBULIN RATIO 1.2 (1.0-2.2); BILIRUBIN,TOTAL 0.6 mg/dL (0.2-1.0); CALCIUM 9.4 mg/dL (8.5-10.3); CREATININE 0.7 mg/dL (0.4-1.0); POTASSIUM 3.3 mmol/L (3.5-5.0); TOTAL PROTEIN 7.8 g/dL (6.7-8.2)
[2021-01-02 20:04] LABS: BILIRUBIN,URINE NEGATIVE (NEGATIVE); GLUCOSE, URINE (UA) NEGATIVE (NEGATIVE); KETONES,URINE (UA) NEGATIVE (NEGATIVE); LEUKOCYTE ESTERASE, URINE NEGATIVE (NEGATIVE); NITRITE,URINE NEGATIVE (NEGATIVE); OCCULT BLOOD,URINE NEGATIVE (NEGATIVE); PH,URINE 6.5 PH (5.0-7.5); PROTEIN,URINE NEGATIVE (NEGATIVE); UROBILINOGEN,URINE 0.2 (NORMAL) E.U./dL (NORMAL)
[2021-01-02 20:06] LABS: CLARITY,URINE CLEAR (CLEAR)
[2021-01-02] MEDS ORDERED: IOPAMIDOL-300 50 ML VIAL PO ONE (20:26)
[2021-01-02] MEDS ORDERED: IOVERSOL 320 50 ML VIAL PO ONE (20:27)
--- NOTE | 2021-01-02 21:02 | CT Report ---
PROCEDURE: Abdomen/Pelvis W INDICATIONS: iv and po, low abd pain CONTRAST: IV CONTRAST: Isovue 300 ml: 100 PO CONTRAST: Optiray 320 ml50 TECHNIQUE: After the administration of IV and oral contrast, 5 mm thick sections acquired from the diaphragms to the symphysis. 5 mm thick coronal and sagittal reformats were acquired. For radiation dose reducti on, the following was used: automated exposure control, adjustment of mA and/or kV according to rachana ent size. COMPARISON: CT examinations dated 11/22/2020 and 08/16/2020 FINDINGS: Image quality: Excellent. ABDOMEN: Lung bases: Severe emphysema is present. Previously seen nodule within the left posterior lung base m easuring 7 mm is not significantly changed. Heart size is normal. Solid organs: Liver and spleen are normal in size and enhancement. Gallbladder is demonstrates laye ring high density material within its lumen Biliary system is non dilated. Pancreas enhances normall y. No adrenal nodules. Kidneys demonstrate normal size and enhancement, without hydronephrosis. Peritoneum and bowel: Bowel loops demonstrate normal wall thickness and caliber. No free fluid or a ir. Nodes and vessels: No retroperitoneal or mesenteric adenopathy by size criteria. Aorta and inferior vena cava are normal in size. Miscellaneous: 58 mm diameter fat containing umbilical hernia. There is a fat-containing right pelvic wall hernia, measuring roughly 50 mm, which contains a loop of small bowel, which is moderately dist ended. There is moderate distention of several small bowel loops just proximal to this hernia. PELVIS: Genitourinary: Bladder wall thickness is normal. Miscellaneous: No inguinal hernias or adenopathy. Bones: No suspicious bony lesions. Right hip arthroplasty has been performed. No vertebral body com pression fractures. IMPRESSION: 1. There is a new small bowel containing right pelvic wall hernia containing a loop of small bowel wh ich demonstrates strangulation and obstruction. 2. Fat-containing umbilical hernia. 3. Gallbladder sludge versus calculi. Reviewed by: Natali Adams MD on 01/02/2021 9:00 PM PDT Approved by: Natali Adams MD on 01/02/2021 9:00 PM PDT Station ID: [id number]
[2021-01-02 21:22] LABS: INR 2.8 (0.8-1.2); PT - PROTHROMBIN TIME 29.1 secs (9.9-12.6)
[2021-01-02] MEDS ORDERED: PHYTONADIONE 10 MG/ML AMP IVP STA (22:13)
[2021-01-02 22:41] VITALS: BP 123/78
[2021-01-02 22:56] LABS: B. PARAPERTUSSIS- RESP PCR PAN NOT DETECTED; B. PERTUSSIS- RESP PCR PANEL NOT DETECTED; C. PNEUMONIAE- RESP PCR PANEL NOT DETECTED; CORONAVIRUS 229E-RESP PCR NOT DETECTED; CORONAVIRUS HKU1-RESP PCR NOT DETECTED; CORONAVIRUS NL63-RESP PCR NOT DETECTED; CORONAVIRUS OC43-RESP PCR NOT DETECTED; HUMAN METAPNEUMOVIRUS NOT DETECTED; INFLUENZA A- RESP PCR PANEL NOT DETECTED; INFLUENZA B - RESP PCR PANEL NOT DETECTED; M. PNEUMONIAE- RESP PCR PANEL NOT DETECTED; PARAINFLUENZA VIRUS 1 NOT DETECTED; PARAINFLUENZA VIRUS 2 NOT DETECTED; PARAINFLUENZA VIRUS 3 NOT DETECTED; PARAINFLUENZA VIRUS 4 NOT DETECTED; RHINOVIRUS/ENTEROVIRUS NOT DETECTED; RSV- RESP PCR PANEL NOT DETECTED; SARS-CoV-2 -RESP PCR PANEL NOT DETECTED
[2021-01-02] MEDS ORDERED: D5.45NS W/20 MEQ KCL 1,000 ML IV SCH (23:00)
== END 2021-01-02 22:51 | disposition short-term general hospital (02) ==
LOC: ED 17:35
DX: K40.30 Unilateral inguinal hernia, with obstruction, without gangrene, not specified as recurrent (principal); I48.91 Unspecified atrial fibrillation; Z79.01 Long term (current) use of anticoagulants; J44.9 Chronic obstructive pulmonary disease, unspecified; Z99.81 Dependence on supplemental oxygen; I10 Essential (primary) hypertension; E78.00 Pure hypercholesterolemia, unspecified; K59.09 Other constipation; R32 Unspecified urinary incontinence; H54.7 Unspecified visual loss; G89.29 Other chronic pain; M54.9 Dorsalgia, unspecified; Z20.822 Contact with and (suspected) exposure to COVID-19; Z79.51 Long term (current) use of inhaled steroids; Z79.899 Other long term (current) drug therapy; Z90.49 Acquired absence of other specified parts of digestive tract; Z96.649 Presence of unspecified artificial hip joint; Z87.891 Personal history of nicotine dependence
CPT/HCPCS: 36415; 74177; 80053; 81003; 83690; 85025; 85610; 87631; 96365; 96375; 96376; 99284; 99285; Q9967; 0202U; 81001; 86900; 86901; 87086

== ENCOUNTER 2021-01-02 22:52 | Outpatient (CLI) | payer MEDICARE, OTHER, MEDICAID | END 2021-01-02 22:53 | disposition short-term general hospital (02) | LOC: EMS 22:52 | PROVIDERS: ATTEND Emergency Medicine | DX: K46.9 Unspecified abdominal hernia without obstruction or gangrene (principal); J44.9 Chronic obstructive pulmonary disease, unspecified | CPT/HCPCS: A0425; A0426 ==

== ENCOUNTER 2021-05-19 08:00 | Outpatient (CLI) | payer MEDICARE, OTHER, MEDICAID ==
[2021-05-19 20:39] LABS: BASOPHILS # (AUTO) 0.1 10^3/uL (0.0-0.1); BASOPHILS % (AUTO) 0.4 %; EOSINOPHILS # (AUTO) 0.1 10^3/uL (0.0-0.7); EOSINOPHILS % (AUTO) 0.4 %; HCT - HEMATOCRIT 42.8 % (37.0-47.0); HGB - HEMOGLOBIN 13.8 g/dL (12.0-16.0); LYMPHOCYTES % (AUTO) 23.1 %; MEAN CORPUSCULAR HEMOGLOBIN 31.2 pg (27.0-31.0); MEAN CORPUSCULAR HGB CONC 32.2 g/dL (32.0-36.0); MEAN CORPUSCULAR VOLUME 96.6 fL (81.0-99.0); MEAN PLATELET VOLUME 10.8 fL (7.9-10.8); MONOCYTES # (AUTO) 1.2 10^3/uL (0.0-1.0); MONOCYTES % (AUTO) 7.1 %; NEUTROPHILS # (AUTO) 11.8 10^3/uL (1.5-6.6); NEUTROPHILS % (AUTO) 67.9 %; PLT - PLATELET COUNT 339 10^3/uL (130-450); RED BLOOD COUNT 4.43 10^6/uL (4.20-5.40); RED CELL DISTRIBUTION WIDTH 14.8 % (12.0-15.0); WHITE BLOOD COUNT 17.4 x10^3/uL (4.8-10.8)
[2021-05-19 20:52] LABS: ALBUMIN 3.7 g/dL (3.2-5.5); ALBUMIN/GLOBULIN RATIO 1.1 (1.0-2.2); BILIRUBIN,TOTAL 0.3 mg/dL (0.2-1.0); CALCIUM 8.4 mg/dL (8.5-10.3); CREATININE 0.7 mg/dL (0.4-1.0); POTASSIUM 3.3 mmol/L (3.5-5.0); TOTAL PROTEIN 7.1 g/dL (6.7-8.2)
== END 2021-05-19 23:59 ==
LOC: LAB.S 08:00
PROVIDERS: ATTEND Physician Assistant Medical
DX: J44.1 Chronic obstructive pulmonary disease with (acute) exacerbation (principal)
CPT/HCPCS: 36415; 80053; 85025

== ENCOUNTER 2021-05-25 01:48 | Outpatient (CLI) | payer MEDICARE, OTHER, MEDICAID | END 2021-05-25 01:49 | disposition EMS.NT | LOC: EMS 01:48 | DX: R10.13 Epigastric pain (principal) ==

== ENCOUNTER 2021-06-29 08:00 | Outpatient (CLI) | payer MEDICARE, OTHER, MEDICAID ==
[2021-06-29 19:53] LABS: HCT - HEMATOCRIT 42.5 % (37.0-47.0); HGB - HEMOGLOBIN 13.6 g/dL (12.0-16.0); MEAN CORPUSCULAR HEMOGLOBIN 31.2 pg (27.0-31.0); MEAN CORPUSCULAR VOLUME 97.5 fL (81.0-99.0); MEAN PLATELET VOLUME 10.6 fL (7.9-10.8); RED BLOOD COUNT 4.36 10^6/uL (4.20-5.40); RED CELL DISTRIBUTION WIDTH 14.6 % (12.0-15.0); WHITE BLOOD COUNT 9.3 x10^3/uL (4.8-10.8)
[2021-06-29 20:10] LABS: ALBUMIN 3.9 g/dL (3.2-5.5); ALBUMIN/GLOBULIN RATIO 1.1 (1.0-2.2); BILIRUBIN,TOTAL 0.7 mg/dL (0.2-1.0); CALCIUM 9.1 mg/dL (8.5-10.3); CREATININE 0.8 mg/dL (0.4-1.0); POTASSIUM 3.4 mmol/L (3.5-5.0); TOTAL PROTEIN 7.6 g/dL (6.7-8.2)
== END 2021-06-29 23:59 ==
LOC: LAB.S 08:00
PROVIDERS: ATTEND Physician Assistant Medical
DX: J44.1 Chronic obstructive pulmonary disease with (acute) exacerbation (principal)
CPT/HCPCS: 36415; 80053; 85025; 85027

== ENCOUNTER 2021-06-29 08:00 | Outpatient (CLI) | payer MEDICARE, OTHER, MEDICAID ==
--- NOTE | 2021-06-29 16:53 | XRAY Report ---
PROCEDURE: Chest 2 View X-Ray INDICATIONS: SHORTNESS OF BREATH TECHNIQUE: 2 view(s) of the chest. COMPARISON: 05/13/2021.. FINDINGS: Surgical changes and devices: None. Lungs and pleura: No pleural effusions or pneumothorax. Lungs are clear of acute opacities. Bilater al lung scarring with basilar predominance is stable compared to the prior exam.. Lungs hyperinflated suggesting COPD. Mediastinum: Mediastinal contours are normal. Heart size is normal. Bones and chest wall: No suspicious bony abnormalities. Soft tissues appear unremarkable. IMPRESSION: No acute cardiopulmonary disease process. Reviewed by: Alejandra Nicholson MD, PhD on 06/29/2021 4:52 PM PST Approved by: Alejandra Nicholson MD, PhD on 06/29/2021 4:52 PM PST Station ID: [id number]
== END 2021-06-29 23:59 | disposition home or self-care (01) ==
LOC: DI.S 08:00
PROVIDERS: ATTEND Physician Assistant Medical
DX: R06.02 Shortness of breath (principal); J44.1 Chronic obstructive pulmonary disease with (acute) exacerbation
CPT/HCPCS: 36415; 80053; 85025; 85027

== ENCOUNTER 2021-07-05 09:09 | Outpatient (CLI) | payer MEDICARE, OTHER, MEDICAID | END 2021-07-05 09:10 | disposition home or self-care (01) | LOC: DI 09:09 | PROVIDERS: ATTEND Physician Assistant Medical | DX: R06.02 Shortness of breath (principal); I48.91 Unspecified atrial fibrillation; I07.1 Rheumatic tricuspid insufficiency; I87.8 Other specified disorders of veins | CPT/HCPCS: 93306 ==

== ENCOUNTER 2021-07-21 11:12 | Outpatient (CLI) | payer MEDICARE, OTHER, MEDICAID | END 2021-07-21 11:13 | disposition home or self-care (01) | LOC: RT 11:12 | PROVIDERS: ATTEND Internal Medicine Cardiovascular Disease | DX: I48.0 Paroxysmal atrial fibrillation (principal) | CPT/HCPCS: 93005 ==

== ENCOUNTER 2021-08-11 11:10 | Outpatient (CLI) | payer MEDICARE, OTHER, MEDICAID ==
[2021-08-11] MEDS ORDERED: ALBUTEROL 1 PUFF INH STA (16:11)
== END 2021-08-11 11:11 | disposition home or self-care (01) ==
LOC: RT 11:10
PROVIDERS: ATTEND Internal Medicine
DX: J44.9 Chronic obstructive pulmonary disease, unspecified (principal)
CPT/HCPCS: 94060; 94727; 94729

== ENCOUNTER 2022-01-10 15:27 | Outpatient (CLI) | payer MEDICARE, OTHER, MEDICAID ==
[2022-01-10 15:48] LABS: BASOPHILS # (AUTO) 0.1 10^3/uL (0.0-0.1); BASOPHILS % (AUTO) 1.1 %; EOSINOPHILS # (AUTO) 0.2 10^3/uL (0.0-0.7); EOSINOPHILS % (AUTO) 2.4 %; HCT - HEMATOCRIT 41.9 % (37.0-47.0); HGB - HEMOGLOBIN 13.6 g/dL (12.0-16.0); LYMPHOCYTES # (AUTO) 2.6 10^3/uL (1.5-3.5); LYMPHOCYTES % (AUTO) 33.9 %; MEAN CORPUSCULAR HGB CONC 32.5 g/dL (32.0-36.0); MEAN CORPUSCULAR VOLUME 98.6 fL (81.0-99.0); MEAN PLATELET VOLUME 9.8 fL (7.9-10.8); MONOCYTES # (AUTO) 0.7 10^3/uL (0.0-1.0); MONOCYTES % (AUTO) 9.3 %; NEUTROPHILS % (AUTO) 52.6 %; PLT - PLATELET COUNT 328 10^3/uL (130-450); RED BLOOD COUNT 4.25 10^6/uL (4.20-5.40); RED CELL DISTRIBUTION WIDTH 15.9 % (12.0-15.0); WHITE BLOOD COUNT 7.5 x10^3/uL (4.8-10.8)
== END 2022-01-10 15:28 | disposition home or self-care (01) ==
LOC: LAB 15:27
PROVIDERS: ATTEND Nurse Practitioner
DX: N76.2 Acute vulvitis (principal)
CPT/HCPCS: 36415; 85025

== ENCOUNTER 2022-01-18 16:00 | Outpatient (CLI) | payer MEDICARE, OTHER, MEDICAID ==
[2022-01-18 22:39] LABS: BACTERIAL VAGINOSIS DNA NEGATIVE (NEGATIVE); CANDIDA GLABRATA DNA NEGATIVE (NEGATIVE); CANDIDA GROUP DNA NEGATIVE (NEGATIVE); CANDIDA KRUSEI DNA NEGATIVE (NEGATIVE); TRICHOMONAS VAGINALIS DNA NEGATIVE (NEGATIVE)
== END 2022-01-18 23:59 | disposition home or self-care (01) ==
LOC: LAB.WC 16:00
PROVIDERS: ATTEND Obstetrics & Gynecology
DX: N76.0 Acute vaginitis (principal)
CPT/HCPCS: 81514

== ENCOUNTER 2022-01-27 17:15 | Outpatient (CLI) | payer MEDICARE, OTHER, MEDICAID ==
--- NOTE | 2022-01-27 19:02 | Ultrasound Report ---
PROCEDURE: Ultrasound pelvis, limited INDICATIONS: Labial swelling TECHNIQUE: Real-time transabdominal scanning was performed of the left vaginal labia COMPARISON: None. FINDINGS: Directed ultrasound shows an ovoid hypoechoic subcutaneous nodule with peripheral vascularity measuri ng 1.3 x 0.8 x 0.6 cm. Internal debris noted. IMPRESSION: 1. Left labial subcutaneous hyperemic cyst, probably reflects impacted duct cyst or sebaceous cyst Reviewed by: Rudolph Sam MD on 01/27/2022 6:01 PM SIVAKUMAR Approved by: Rudolph Sam MD on 01/27/2022 6:01 PM SIVAKUMAR Station ID: [id number]
== END 2022-01-27 17:16 | disposition home or self-care (01) ==
LOC: DI 17:15
PROVIDERS: ATTEND Obstetrics & Gynecology
DX: N90.7 Vulvar cyst (principal)

== ENCOUNTER 2022-07-04 12:20 | Outpatient (CLI) | payer MEDICARE, OTHER, MEDICAID ==
[2022-07-04 14:54] LABS: BASOPHILS # (AUTO) 0.1 10^3/uL (0.0-0.1); BASOPHILS % (AUTO) 0.8 %; EOSINOPHILS # (AUTO) 0.1 10^3/uL (0.0-0.7); EOSINOPHILS % (AUTO) 1.7 %; HCT - HEMATOCRIT 43.4 % (37.0-47.0); HGB - HEMOGLOBIN 13.8 g/dL (12.0-16.0); LYMPHOCYTES # (AUTO) 2.2 10^3/uL (1.5-3.5); LYMPHOCYTES % (AUTO) 28.2 %; MEAN CORPUSCULAR HEMOGLOBIN 31.7 pg (27.0-31.0); MEAN CORPUSCULAR HGB CONC 31.8 g/dL (32.0-36.0); MEAN CORPUSCULAR VOLUME 99.8 fL (81.0-99.0); MEAN PLATELET VOLUME 10.2 fL (7.9-10.8); MONOCYTES # (AUTO) 0.7 10^3/uL (0.0-1.0); MONOCYTES % (AUTO) 9.4 %; NEUTROPHILS # (AUTO) 4.7 10^3/uL (1.5-6.6); NEUTROPHILS % (AUTO) 59.5 %; PLT - PLATELET COUNT 323 10^3/uL (130-450); RED BLOOD COUNT 4.35 10^6/uL (4.20-5.40); RED CELL DISTRIBUTION WIDTH 13.8 % (12.0-15.0); WHITE BLOOD COUNT 7.8 x10^3/uL (4.8-10.8)
[2022-07-04 15:22] LABS: ALBUMIN 3.9 g/dL (3.2-5.5); ALBUMIN/GLOBULIN RATIO 1.1 (1.0-2.2); BILIRUBIN,TOTAL 0.7 mg/dL (0.2-1.0); CALCIUM 10.4 mg/dL (8.5-10.3); CREATININE 0.7 mg/dL (0.4-1.0); POTASSIUM 3.7 mmol/L (3.5-5.0); TOTAL PROTEIN 7.5 g/dL (6.7-8.2)
[2022-07-04 15:58] LABS: THYROID STIMULATING HORMONE 1.04 uIU/mL (0.34-5.60)
== END 2022-07-04 12:21 | disposition home or self-care (01) ==
LOC: LAB.S 12:20
PROVIDERS: ATTEND Registered Nurse
DX: Z79.899 Other long term (current) drug therapy (principal); E03.9 Hypothyroidism, unspecified
CPT/HCPCS: 36415; 80053; 84443; 85025

== ENCOUNTER 2022-07-07 13:42 | Outpatient (CLI) | payer MEDICARE, OTHER, MEDICAID ==
[2022-07-07 19:46] LABS: BASOPHILS # (AUTO) 0.1 10^3/uL (0.0-0.1); BASOPHILS % (AUTO) 0.6 %; EOSINOPHILS # (AUTO) 0.2 10^3/uL (0.0-0.7); HCT - HEMATOCRIT 44.8 % (37.0-47.0); HGB - HEMOGLOBIN 13.9 g/dL (12.0-16.0); LYMPHOCYTES # (AUTO) 2.8 10^3/uL (1.5-3.5); LYMPHOCYTES % (AUTO) 34.4 %; MEAN CORPUSCULAR HEMOGLOBIN 31.7 pg (27.0-31.0); MEAN CORPUSCULAR VOLUME 102.1 fL (81.0-99.0); MEAN PLATELET VOLUME 10.1 fL (7.9-10.8); MONOCYTES # (AUTO) 0.8 10^3/uL (0.0-1.0); MONOCYTES % (AUTO) 9.4 %; NEUTROPHILS # (AUTO) 4.3 10^3/uL (1.5-6.6); NEUTROPHILS % (AUTO) 53.2 %; PLT - PLATELET COUNT 345 10^3/uL (130-450); RED BLOOD COUNT 4.39 10^6/uL (4.20-5.40); WHITE BLOOD COUNT 8.2 x10^3/uL (4.8-10.8)
[2022-07-07 20:03] LABS: ALBUMIN/GLOBULIN RATIO 1.1 (1.0-2.2); BILIRUBIN,TOTAL 0.5 mg/dL (0.2-1.0); CALCIUM 9.5 mg/dL (8.5-10.3); CREATININE 0.8 mg/dL (0.4-1.0); POTASSIUM 3.7 mmol/L (3.5-5.0); TOTAL PROTEIN 7.5 g/dL (6.7-8.2)
== END 2022-07-07 13:43 | disposition home or self-care (01) ==
LOC: LAB.S 13:42
PROVIDERS: ATTEND Registered Nurse
DX: E83.52 Hypercalcemia (principal); E03.9 Hypothyroidism, unspecified; Z79.899 Other long term (current) drug therapy
CPT/HCPCS: 36415; 80053; 83970; 84443; 85025

== ENCOUNTER 2022-10-11 11:07 | Outpatient (CLI) | payer MEDICARE, OTHER, MEDICAID | END 2022-10-11 11:08 | disposition home or self-care (01) | LOC: RT 11:07 | PROVIDERS: ATTEND Internal Medicine Cardiovascular Disease | DX: I48.0 Paroxysmal atrial fibrillation (principal); I27.20 Pulmonary hypertension, unspecified | CPT/HCPCS: 93005 ==

== ENCOUNTER 2023-06-19 12:32 | Outpatient (CLI) | payer MEDICARE, OTHER, MEDICAID ==
[2023-06-19 14:52] LABS: BASOPHILS % (AUTO) 0.6 %; EOSINOPHILS # (AUTO) 0.1 10^3/uL (0.0-0.7); EOSINOPHILS % (AUTO) 1.3 %; HGB - HEMOGLOBIN 13.5 g/dL (12.0-16.0); LYMPHOCYTES # (AUTO) 1.9 10^3/uL (1.5-3.5); LYMPHOCYTES % (AUTO) 27.5 %; MEAN CORPUSCULAR HEMOGLOBIN 32.8 pg (27.0-31.0); MEAN CORPUSCULAR HGB CONC 32.1 g/dL (32.0-36.0); MEAN CORPUSCULAR VOLUME 102.2 fL (81.0-99.0); MEAN PLATELET VOLUME 10.8 fL (7.9-10.8); MONOCYTES # (AUTO) 0.6 10^3/uL (0.0-1.0); NEUTROPHILS # (AUTO) 4.3 10^3/uL (1.5-6.6); NEUTROPHILS % (AUTO) 61.2 %; PLT - PLATELET COUNT 280 10^3/uL (130-450); RED BLOOD COUNT 4.11 10^6/uL (4.20-5.40); RED CELL DISTRIBUTION WIDTH 14.6 % (12.0-15.0)
[2023-06-19 16:18] LABS: THYROID STIMULATING HORMONE 0.84 uIU/mL (0.34-5.60)
[2023-06-19 16:35] LABS: ALBUMIN/GLOBULIN RATIO 1.4 (1.0-2.2); ALKALINE PHOSPHATASE 74 IU/L (42-121); ALT ALANINE AMINOTRANSFERASE 14 IU/L (10-60); AST ASPARTATE AMINOTRANSFERASE 21 IU/L (10-42); BILIRUBIN,TOTAL 0.4 mg/dL (0.2-1.0); BUN - BLOOD UREA NITROGEN 15 mg/dL (6-20); CALCIUM 9.3 mg/dL (8.5-10.3); CARBON DIOXIDE - CO2 30 mmol/L (21-32); CHLORIDE 103 mmol/L (101-111); CHOL/HDL RATIO 3.3 (<4.4); CHOLESTEROL 208 mg/dL; CREATININE 0.7 mg/dL (0.6-1.3); GFR - MDRD 80 (>89); GLUCOSE 98 mg/dL (74-104); HDL CHOLESTEROL 64 mg/dL; LDL CHOLESTEROL,CALCULATED 127 mg/dL; POTASSIUM 3.6 mmol/L (3.5-4.5); SODIUM 141 mmol/L (135-145); TOTAL PROTEIN 6.9 g/dL (6.4-8.9); TRIGLYCERIDES 85 mg/dL (48-352); VLDL CHOLESTEROL 17 mg/dL
== END 2023-06-19 12:33 | disposition home or self-care (01) ==
LOC: LAB.S 12:32
PROVIDERS: ATTEND Registered Nurse
DX: I10 Essential (primary) hypertension (principal); Z13.228 Encounter for screening for other metabolic disorders; Z13.220 Encounter for screening for lipoid disorders; Z13.29 Encounter for screening for other suspected endocrine disorder; Z13.0 Encounter for screening for diseases of the blood and blood-forming organs and certain disorders involving the immune mechanism
CPT/HCPCS: 36415; 80053; 80061; 83721; 84443; 85025

== ENCOUNTER 2023-12-14 11:08 | Outpatient (CLI) | payer MEDICARE, OTHER, MEDICAID ==
--- NOTE | 2023-12-14 15:29 | XRAY Report ---
PROCEDURE: Hips w/Pelvis 2-3V BL INDICATIONS: RIGHT HIP PAIN TECHNIQUE: 3 view(s) of the hip were acquired. COMPARISON: None. FINDINGS: Bones: Right hip arthroplasty. No acute displaced fracture or dislocation. Possible mild lucency at t he acetabulum. 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 These findings were also seen from CT in 2020. Lumbosacral degenerative changes and pubic symphysis degenerative changes. Soft tissues: No suspicious calcifications. There are vascular calcifications IMPRESSION: Right hip arthroplasty in place. Possible mild lucency surrounding the acetabular cup. No acute displ aced fracture or dislocation. Consider further evaluation with bone scan or cross-sectional imaging i f indicated. Severe degenerative changes of left hip, with periarticular ossifications and mild subchondral collap se, latter may represent superimposed osteonecrosis. Reviewed by: Lewis Eldridge MD on 12/14/2023 3:28 PM PDT Approved by: Lewis Eldridge MD on 12/14/2023 3:28 PM PDT Station ID: [id number]
--- NOTE | 2023-12-14 15:32 | XRAY Report ---
PROCEDURE: Lumbar Spine 4V INDICATIONS: LOW BACK PAIN TECHNIQUE: 4 views of the lumbar spine were acquired. COMPARISON: CT 01/02/2021 FINDINGS: Bones: There are mild to moderate degenerative changes with disc space height loss, facet arthropathy, and osteophytes. No acute appearing vertebral height loss. While leftward spinal curvatu re. 1.3 cm of anterolisthesis at L4-L5. Possible trace anterolisthesis also seen at L5-S1. Oblique views are significantly limited due to technique. Partially seen is severe left hip degenerative changes and right hip arthroplasty, possibly with alexander prosthetic lucency at the acetabulum Soft tissues: Vascular calcifications. IMPRESSION: Mild to moderate degenerative changes of the lumbar spine. 1.3 cm of L4 on L5 anterolisthesis, and tr damon L5 on S1 anterolisthesis. If there is high concern for further derangement, consider MRI evaluation. Pelvic/hip findings are separately dictated. Reviewed by: Lewis Eldridge MD on 12/14/2023 3:30 PM PDT Approved by: Lewis Eldridge MD on 12/14/2023 3:30 PM PDT Station ID: [id number]
--- NOTE | 2023-12-14 15:36 | XRAY Report ---
PROCEDURE: Cervical Spine 4-5V INDICATIONS: NECK PAIN TECHNIQUE: 6 views of the cervical spine acquired. COMPARISON: None. FINDINGS: Bones: There is trace anterolisthesis of C2 on C3. Trace anterolisthesis of C4 on C5. Lateral view on ly extends to C5. There is straightening of normal cervical lordosis. No acute vertebral body height loss where visualized. No traumatic subluxation. Overall moderate spondylotic changes. Oblique views suggest mild multilevel neural foraminal narrowing. Normal C1 on C2 alignment on odontoid view. Soft tissues: No pathologic prevertebral soft tissue swelling. IMPRESSION: Moderate spondylotic changes and multilevel spondylolisthesis. Significantly limited study due to pos itioning, lateral view extends only to C5. If there is high concern for further derangement, consider MRI evaluation. Reviewed by: Lewis Eldridge MD on 12/14/2023 3:34 PM PDT Approved by: Lewis Eldridge MD on 12/14/2023 3:34 PM PDT Station ID: [id number]
== END 2023-12-14 11:09 | disposition home or self-care (01) ==
LOC: DI 11:08
PROVIDERS: ATTEND Acupuncturist
DX: M25.551 Pain in right hip (principal); M16.12 Unilateral primary osteoarthritis, left hip; Z96.641 Presence of right artificial hip joint; M47.816 Spondylosis without myelopathy or radiculopathy, lumbar region; M43.16 Spondylolisthesis, lumbar region; M43.17 Spondylolisthesis, lumbosacral region; M47.812 Spondylosis without myelopathy or radiculopathy, cervical region; M43.12 Spondylolisthesis, cervical region

== ENCOUNTER 2024-01-16 15:05 | Outpatient (CLI) | payer MEDICARE, OTHER, MEDICAID | END 2024-01-16 23:59 | disposition critical access hospital (66) | LOC: EMS 15:05 | DX: R06.00 Dyspnea, unspecified (principal); J44.9 Chronic obstructive pulmonary disease, unspecified; Z99.81 Dependence on supplemental oxygen; I10 Essential (primary) hypertension | CPT/HCPCS: A0425; A0429 ==

== ENCOUNTER 2024-01-16 15:32 | Emergency (ER) | payer MEDICARE, OTHER, MEDICAID ==
--- NOTE | 2024-01-16 15:45 | ED Physician Documentation ---
History of Present Illness - Stated complaint Stated Complaint: COPD EXACERBATION - Additonal information Additional information: 83-year-old female presents emergency department via EMS for acute shortness of breath. She has a history of hypertension, A-fib, high cholesterol, COPD, hypothyroidism, osteoarthritis. Upon arrival according to EMS patient was satting around the mid 80s on room air. Patient's daughter is at bedside and reports that she is normally on supplemental oxygen about 3 to 4 L and weaned up to 5 L with any sort of exertional activity such as ambulating or showering. Patient says that she started feeling ill yesterday and woke up today feeling more ill originally she was complaining of pain in her left hip/femur region she took her hydrocodone fell back asleep and then woke up feeling significantly worse. She has not been around anyone recently who is ill no recent changes in medications. No nausea or vomiting. 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 : Incontinence HEENT: Chronic vision loss Psych: None Musculoskeletal: Osteoarthritis, Chronic back pain Derm: None - Past Surgical History Past Surgical History: Yes General: Appendectomy Ortho: Hip replacement Cardiovascular: Other HEENT: Cataracts - Present Medications Home Medications: Ambulatory Orders Medication Instructions Recorded Confirmed Fluticasone [Flonase] 2 spr ANTOINE DAILY 09/22/15 01/02/21 Pravastatin [Pravachol] 40 mg PO DAILY 09/22/15 01/02/21 diltiaZEM CD [Cardizem Cd] 120 mg PO DAILY 09/22/15 01/02/21 Furosemide 20 mg PO DAILY 02/27/17 01/02/21 Acetaminophen 1,000 mg PO DAILY PM PRN 06/25/18 01/02/21 Albuterol Sulfate [Albuterol 2 puffs IH PRN PRN 06/25/18 01/02/21 Sulfate Hfa] Clobetasol 0.05% Oint [Temovate 1 applic TOP PRN PRN 06/25/18 01/02/21 0.05% Oint] Docusate Sodium 250Mg Capsule 250 mg PO PRN PRN 06/25/18 01/02/21 [Colace 250Mg Capsule] Hydrocodone/Acetaminophen 1 tab PO Q6H PRN 06/25/18 01/02/21 [Hydrocodone-Acetamin 5-325 mg] Levothyroxine Sodium 125 mg PO DAILY 06/25/18 01/02/21 Tiotropium [place] [Spiriva 18 mcg INH DAILY 06/25/18 01/02/21 Handihaler] Warfarin Sodium 2.5 - 5 mg PO DAILY 06/25/18 01/02/21 polyethylene glycoL 3350 [Miralax] 17 gm PO PRN PRN 06/25/18 01/02/21 Fluticasone Propion/Salmeterol 1 puffs INH BID 06/01/19 01/02/21 [Wixela 500-50 Inhub] Ipratropium [Atrovent] 1 puffs INH Q6H #1 inhaler 06/01/19 01/02/21 Lidocaine Ointment 5% [Xylocaine 35.44 gm TOP BID PRN #1 tub 11/05/20 01/02/21 Ointment 5%] Mupirocin 2% Oint [Bactroban 2% 1 applic TOP BID #22 gm 11/05/20 01/02/21 Oint] QUEtiapine [SEROquel] 25 mg PO QPM 01/02/21 01/02/21 Doxycycline Hyclate [Vibramycin] 100 mg PO BID #28 cap 01/24/21 Mupirocin 2% Oint [Bactroban 2% 1 applic TOP BID #22 gm 01/24/21 Oint] Lidocaine Ointment 5% [Xylocaine 35.44 gm TOP BID PRN #1 tub 02/08/21 Ointment 5%] Mupirocin 2% Oint [Bactroban 2% 1 applic TOP BID #22 gm 02/08/21 Oint] Amox/Clav 875/125 [Augmentin] 1 each PO Q12H #20 tablet 05/13/21 Fluticasone [Flonase] 1 sprays ANTOINE BID #16 gm 05/13/21 guaiFENesin/CODEINE [Robitussin AC] 5 - 10 ml PO Q6H PRN #120 ml 05/13/21 predniSONE [Deltasone] 60 mg PO DAILY 5 Days #15 tablet 05/13/21 Amox/Clav 875/125 [Augmentin 1 tablet PO Q12H 5 Days #10 tablet 01/16/24 875/125 Tab] Doxycycline [Vibramycin] 100 mg PO BID 5 Days #10 tablet 01/16/24 predniSONE [Deltasone] 40 mg PO DAILY 5 Days #10 tablet 01/16/24 - Allergies Allergies/Adverse Reactions: Allergies Allergy/AdvReac Type Severity Reaction Status Date / Time Sulfa (Sulfonamide Allergy Unknown Verified 01/16/24 15:40 Antibiotics) - Social History Does the pt smoke?: No Smoking Status: Former smoker Does the pt drink ETOH?: No Does the pt have substance abuse?: No - Immunizations Immunizations are current?: Yes - POLST Patient has POLST: No PD ED PE NORMAL - Vitals Vital signs reviewed: Yes - General General: Alert and oriented X 3, No acute distress, Well developed/nourished - Cardiac Cardiac: RRR - Respiratory Respiratory: Other (diminished bilaterally) - Abdomen Abdomen: Normal bowel sounds, Soft, Non tender, Non distended, No organomegaly - Back Back: No CVA TTP - Derm Derm: Normal color, Warm and dry, No rash - Extremities Extremities: No edema, No calf tenderness / cord - Neuro Neuro: Alert and oriented X 3, stockroom clerk 2-12 intact, No motor deficit, No sensory deficit, Normal speech Results - Vitals Vitals: Vital Signs - 24 hr 01/16/24 01/16/24 01/16/24 15:41 16:05 16:26 Temperature 37.3 C 37.0 C Heart Rate 87 108 H 83 Respiratory 20 22 20 Rate Blood Pressure 121/58 L 120/49 L O2 Saturation 95 89 L If not protocol 3 : Oxygen Flow, liters/minute 01/16/24 01/16/24 01/16/24 17:00 17:30 18:00 Temperature 36.8 C Heart Rate 84 86 80 Respiratory 18 18 18 Rate Blood Pressure 123/49 L 109/62 122/45 L O2 Saturation 96 97 92 If not protocol 4 4 : Oxygen Flow, liters/minute 01/16/24 18:30 Temperature Heart Rate 80 Respiratory 22 Rate Blood Pressure 144/55 H O2 Saturation 92 If not protocol 4 : Oxygen Flow, liters/minute Oxygen O2 Source [Without Activity] Oxymizer O2 Source Nasal cannula Oxygen Flow Rate 10 - Labs Labs: Laboratory Tests 01/16/24 01/16/24 01/16/24 15:51 15:51 16:00 WBC 15.4 H RBC 4.32 Hgb 14.1 Hct 42.9 MCV 99.3 H MCH 32.6 H MCHC 32.9 RDW 14.7 Plt Count 301 MPV 9.7 Neut # (Auto) 12.6 H Lymph # (Auto) 1.7 [place] # (Auto) 1.0 Eos # (Auto) 0.0 Baso # (Auto) 0.1 Absolute Nucleated RBC 0.00 Nucleated RBC % 0.0 Sodium 136 Potassium 3.7 Chloride 98 L Carbon Dioxide 31 Anion Gap 7.0 BUN 10 Creatinine 0.7 Estimated GFR (MDRD) 80 L Glucose 105 H Calcium 8.9 Magnesium 1.5 L Total Bilirubin 0.8 AST 19 ALT 11 Alkaline Phosphatase 66 Total Protein 6.8 Albumin 3.7 Globulin 3.1 Albumin/Globulin Ratio 1.2 Lipase < 10 L Nasal Adenovirus (PCR) NOT DETECTED Nasal B. parapertussis DNA (PCR) NOT DETECTED Nasal Coronavir 229E PCR NOT DETECTED Nasal Coronavir HKU1 PCR NOT DETECTED Nasal Coronavir NL63 PCR NOT DETECTED Nasal Coronavir OC43 PCR NOT DETECTED Nasal Enterovir/Rhinovir PCR NOT DETECTED Nasal Influenza B PCR NOT DETECTED Nasal Influenza A PCR NOT DETECTED Nasal Parainfluen 1 PCR NOT DETECTED Nasal Parainfluen 2 PCR NOT DETECTED Nasal Parainfluen 3 PCR NOT DETECTED Nasal Parainfluen 4 PCR NOT DETECTED Nasal RSV (PCR) NOT DETECTED Nasal B.pertussis DNA PCR NOT DETECTED Nasal C.pneumoniae (PCR) NOT DETECTED Antoine Human Metapneumo PCR NOT DETECTED Nasal M.pneumoniae (PCR) NOT DETECTED Nasal SARS-CoV-2 (PCR) NOT DETECTED - Rads (name of study) CT chest angio Relevant Findings:: Final report received, EMP independent interpretation of test, Other (No pulmonary emboli, no aortic dissection or aneurysm. Severe bullous emphysema with perihilar and right lower lobe focal consolidation possible underlying mass lesion difficult to exclude with a right lower lobe pulmonary infiltrate consistent with pneumonia.) PD Medical Decision Making - ED course ED course: 83-year-old female presents emergency department for worsening shortness of breath differentials to consider but not limited to COPD exacerbation, respiratory virus, pulmonary embolism, pneumonia, fluid volume overload. Labs are complete for further evaluation patient does appear to have some leukocytosis, 15.4 no anemia mild hypomagnesemia 1.5, 400 mg of magnesium oxide was replaced orally normal kidney function no electrolyte abnormalities. Respiratory panel was found to be negative. CT angio was complete for further evaluation of possible PE and PE was ruled out with CT chest angio although patient was found to have severe bullous emphysema with perihilar and right lower lobe focal consolidation with possible underlying mass but difficult to evaluate. She also had right lower lobe pulmonary infiltrate consistent with pneumonia. Patient does have oxygen at home and so she said that she really would like to avoid at all costs being hospitalized and would like to try going home on antibiotics rather than being admitted. She does improve significantly better after receiving 125 mg of IV methylprednisolone, magnesium oxide, IV fluids and initiation of Augmentin and doxycycline. I believe that she is safe to go home she lives with her daughter who is her full-time caregiver who is also at bedside and feels comfortable and competent and taking care of her mother at home. Prescription of 5-day course of steroids, Augmentin, doxycycline was sent to patient's preferred pharmacy she is told to follow-up with her primary care provider for further evaluation and reevaluation about today's ER visit and she is given very strict ER return precautions. At this point time patient is safe for discharge all questions answered. Departure - Departure Disposition: Home, Self Care Clinical Impression: Pneumonia, COPD exacerbation Instructions: COPD Dc, Pneumonia Dc Prescriptions: Amox/Clav 875/125 [Augmentin 875/125 Tab] 1 tablet PO Q12H 5 Days #10 tablet predniSONE [Deltasone] 40 mg PO DAILY 5 Days #10 tablet Doxycycline [Vibramycin] 100 mg PO BID 5 Days #10 tablet Comments: Thank you for trusting us with your care, we have evaluated you for your shortness of breath. It does appear that you have right lower lobe pneumonia and a possible underlying mass also on the right lower lobe. We are recommending that you have follow-up in 3 months For further evaluation of this. 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 If you get any worse or have any worsening symptoms please do not hesitate to return to the emergency department immediately for further evaluation. Final Report PT NAME: WILLIE MCCALL MR#: [id number] REG ER/ED AGE: 83 CI DT/TM: 01/16/2409/05/1543 [facility] 1940 [id number] ATT: SEX: F ORD: Donnie Thomas MARKETING PRODUCTION SPECIALIST EXAM: CT/CHTANG ([id number]) PROCEDURE: Angio Chest INDICATIONS: r/o PE TECHNIQUE: Helical axial CT of the chest was obtained during the angiographic phase of an intravenous contrast injection. Multiplanar and MIP reformats utilized. Radiation dose reduction was achieved utilizing automated exposure control or adjustment of mA and/or kV according to patient size. COMPARISON: None FINDINGS: Vasculature: No evidence of pulmonary embolism, aortic dissection or aneurysm. Lungs and pleura: Severe bolus pulmonary emphysema with focal right lower lobe perihilar consolidation 6.8 x 3.0 cm. Right lower lobe pulmonary infiltrate. Mediastinum: Heart size is normal. No pericardial effusion. No large vessel abnormality. No mediastinal adenopathy by size criteria. Chest wall and lower neck: Thyroid is unremarkable. No axillary or supraclavicular adenopathy by size. Bones: No aggressive osseous abnormality. Upper Abdomen: Unremarkable. IMPRESSION: No evidence of pulmonary embolism, aortic dissection or aneurysm Severe bullous emphysema with perihilar and right lower lobe focal consolidation. Underlying mass lesion the difficult to exclude. Consider 3 month follow-up CT. Right lower lobe pulmonary infiltrate consistent with pneumonia Reviewed by: Rudolph Sam MD on 01/16/2024 4:30 PM AKDT Approved by: Rudolph Sam MD on 01/16/2024 4:30 PM AKDT Station ID: [id number] Report Electronically Signed by Rudolph Sam MD 01/16/24 1723 01/16/24 1734 cc: SENAIT Padron; Donnie Denis DNP Forms: PCP List Discharge Date/Time: 01/16/24 19:15
[2024-01-16 15:58] LABS: BASOPHILS # (AUTO) 0.1 10^3/uL (0.0-0.1); BASOPHILS % (AUTO) 0.3 %; EOSINOPHILS % (AUTO) 0.3 %; HCT - HEMATOCRIT 42.9 % (37.0-47.0); HGB - HEMOGLOBIN 14.1 g/dL (12.0-16.0); LYMPHOCYTES # (AUTO) 1.7 10^3/uL (1.5-3.5); MEAN CORPUSCULAR HEMOGLOBIN 32.6 pg (27.0-31.0); MEAN CORPUSCULAR HGB CONC 32.9 g/dL (32.0-36.0); MEAN CORPUSCULAR VOLUME 99.3 fL (81.0-99.0); MEAN PLATELET VOLUME 9.7 fL (7.9-10.8); MONOCYTES % (AUTO) 6.5 %; NEUTROPHILS # (AUTO) 12.6 10^3/uL (1.5-6.6); NEUTROPHILS % (AUTO) 81.4 %; PLT - PLATELET COUNT 301 10^3/uL (130-450); RED BLOOD COUNT 4.32 10^6/uL (4.20-5.40); RED CELL DISTRIBUTION WIDTH 14.7 % (12.0-15.0); WHITE BLOOD COUNT 15.4 x10^3/uL (4.8-10.8)
[2024-01-16] MEDS: methylPREDNISolone SUCCINATE 125 MG/2 ML VIAL IVP STA (15:58)
[2024-01-16] MEDS: IPRATROPIUM/ALBUTEROL 3 ML NEB INH STA (16:01)
[2024-01-16 16:11] LABS: LIPASE < 10 U/L (11-82); MAGNESIUM 1.5 mg/dL (1.7-2.3)
[2024-01-16 16:17] LABS: ALBUMIN 3.7 g/dL (3.2-5.5); ALBUMIN/GLOBULIN RATIO 1.2 (1.0-2.2); ALKALINE PHOSPHATASE 66 IU/L (42-121); ALT ALANINE AMINOTRANSFERASE 11 IU/L (10-60); AST ASPARTATE AMINOTRANSFERASE 19 IU/L (10-42); BILIRUBIN,TOTAL 0.8 mg/dL (0.2-1.0); BUN - BLOOD UREA NITROGEN 10 mg/dL (6-20); CALCIUM 8.9 mg/dL (8.5-10.3); CARBON DIOXIDE - CO2 31 mmol/L (21-32); CHLORIDE 98 mmol/L (101-111); CREATININE 0.7 mg/dL (0.6-1.3); GFR - MDRD 80 (>89); GLUCOSE 105 mg/dL (74-104); POTASSIUM 3.7 mmol/L (3.5-4.5); SODIUM 136 mmol/L (135-145); TOTAL PROTEIN 6.8 g/dL (6.4-8.9)
[2024-01-16] MEDS ORDERED: iohexoL-300 100 ML VIAL ONE (16:55)
[2024-01-16 17:04] LABS: B. PARAPERTUSSIS- RESP PCR PAN NOT DETECTED; B. PERTUSSIS- RESP PCR PANEL NOT DETECTED; C. PNEUMONIAE- RESP PCR PANEL NOT DETECTED; CORONAVIRUS 229E-RESP PCR NOT DETECTED; CORONAVIRUS HKU1-RESP PCR NOT DETECTED; CORONAVIRUS NL63-RESP PCR NOT DETECTED; CORONAVIRUS OC43-RESP PCR NOT DETECTED; HUMAN METAPNEUMOVIRUS NOT DETECTED; INFLUENZA A- RESP PCR PANEL NOT DETECTED; INFLUENZA B - RESP PCR PANEL NOT DETECTED; M. PNEUMONIAE- RESP PCR PANEL NOT DETECTED; PARAINFLUENZA VIRUS 1 NOT DETECTED; PARAINFLUENZA VIRUS 2 NOT DETECTED; PARAINFLUENZA VIRUS 3 NOT DETECTED; PARAINFLUENZA VIRUS 4 NOT DETECTED; RHINOVIRUS/ENTEROVIRUS NOT DETECTED; RSV- RESP PCR PANEL NOT DETECTED; SARS-CoV-2 -RESP PCR PANEL NOT DETECTED
[2024-01-16] MEDS: MAGNESIUM OXIDE 400 MG TABLET PO STA (17:17)
--- NOTE | 2024-01-16 17:31 | CT Report ---
PROCEDURE: Angio Chest INDICATIONS: r/o PE TECHNIQUE: Helical axial CT of the chest was obtained during the angiographic phase of an intravenou s contrast injection. Multiplanar and MIP reformats utilized. Radiation dose reduction was achieved u tilizing automated exposure control or adjustment of mA and/or kV according to patient size. COMPARISON: None FINDINGS: Vasculature: No evidence of pulmonary embolism, aortic dissection or aneurysm. Lungs and pleura: Severe bolus pulmonary emphysema with focal right lower lobe perihilar consolidatio n 6.8 x 3.0 cm. Right lower lobe pulmonary infiltrate. Mediastinum: Heart size is normal. No pericardial effusion. No large vessel abnormality. No mediastin al adenopathy by size criteria. Chest wall and lower neck: Thyroid is unremarkable. No axillary or supraclavicular adenopathy by size . Bones: No aggressive osseous abnormality. Upper Abdomen: Unremarkable. IMPRESSION: No evidence of pulmonary embolism, aortic dissection or aneurysm Severe bullous emphysema with perihilar and right lower lobe focal consolidation. Underlying mass les ion the difficult to exclude. Consider 3 month follow-up CT. Right lower lobe pulmonary infiltrate consistent with pneumonia Reviewed by: Rudolph Sam MD on 01/16/2024 4:30 PM AKDT Approved by: Rudolph Sam MD on 01/16/2024 4:30 PM AKDT Station ID: [id number]
[2024-01-16 18:26] VITALS: O2SAT 92
[2024-01-16 18:37] VITALS: BP 144/55
[2024-01-16] MEDS: AMOX/CLAV 875 MG/125 MG TABLET PO STA (18:49)
[2024-01-16] MEDS: DOXYCYCLINE 100 MG TABLET PO STA (18:49)
== END 2024-01-16 19:15 | disposition home or self-care (01) ==
LOC: EDUNIT# → ED 15:32
DX: J44.0 Chronic obstructive pulmonary disease with (acute) lower respiratory infection (principal); J18.9 Pneumonia, unspecified organism; J44.1 Chronic obstructive pulmonary disease with (acute) exacerbation; J43.9 Emphysema, unspecified; E83.42 Hypomagnesemia; R91.8 Other nonspecific abnormal finding of lung field; Z87.891 Personal history of nicotine dependence; Z99.81 Dependence on supplemental oxygen
CPT/HCPCS: 36415; 71275; 80053; 83690; 83735; 85025; 87633; 93005; 94640; 96374; 99284; A9270; Q9967

== ENCOUNTER 2024-01-19 10:09 | Emergency (ER) | payer MEDICARE, OTHER, MEDICAID ==
--- NOTE | 2024-01-19 11:26 | ED Physician Documentation ---
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 : Incontinence HEENT: Chronic vision loss Psych: None Musculoskeletal: Osteoarthritis, Chronic back pain Derm: None - Past Surgical History Past Surgical History: Yes General: Appendectomy Ortho: Hip replacement Cardiovascular: Other HEENT: Cataracts - Present Medications Home Medications: Ambulatory Orders Medication Instructions Recorded Confirmed Pravastatin [Pravachol] 40 mg PO DAILY 09/22/15 01/19/24 Furosemide 20 mg PO DAILY 02/27/17 01/19/24 Acetaminophen 1,000 mg PO DAILY PM PRN 06/25/18 01/19/24 Albuterol Sulfate [Albuterol 2 puffs IH PRN PRN 06/25/18 01/19/24 Sulfate Hfa] Hydrocodone/Acetaminophen 1 tab PO Q6H PRN 06/25/18 01/19/24 [Hydrocodone-Acetamin 5-325 mg] Levothyroxine Sodium 125 mg PO DAILY 06/25/18 01/19/24 Tiotropium [place] [Spiriva 18 mcg INH DAILY 06/25/18 01/19/24 Handihaler] polyethylene glycoL 3350 [Miralax] 17 gm PO PRN PRN 06/25/18 01/19/24 Ipratropium [Atrovent] 1 puffs INH Q6H #1 inhaler 06/01/19 01/19/24 Lidocaine Ointment 5% [Xylocaine 35.44 gm TOP BID PRN #1 tub 11/05/20 01/19/24 Ointment 5%] QUEtiapine [SEROquel] 25 mg PO QPM 01/02/21 01/19/24 Fluticasone [Flonase] 1 sprays ANTOINE BID #16 gm 05/13/21 01/19/24 Doxycycline [Vibramycin] 100 mg PO BID 5 Days #10 tablet 01/16/24 01/19/24 predniSONE [Deltasone] 40 mg PO DAILY 5 Days #10 tablet 01/16/24 01/19/24 Amox/Clav 875/125 [Augmentin 1 tablet PO BID 10 Days #10 tablet 01/19/24 875/125 Tab] Apixaban [Eliquis] 5 mg ORAL BID 01/19/24 01/19/24 Bifidobacterium [place] [Align] 10.5 mg PO DAILY 01/19/24 01/19/24 Calcium Carbonate [Calcium] 1,200 mg PO DAILY 01/19/24 01/19/24 Doxycycline Hyclate 100 mg PO BID 5 Days #10 cap 01/19/24 Fluticasone Propion/Salmeterol 1 each IH BID 01/19/24 01/19/24 [Wixela 500-50 Inhub] Lidocaine Patch 5% [Lidoderm Patch] 1 each TOP DAILY 01/19/24 01/19/24 Potassium Citrate [Potassium] 99 mg PO DAILY 01/19/24 01/19/24 Psyllium [place] [Metamucil] 425 gm PO DAILY 01/19/24 01/19/24 Valacyclovir HCl [Valtrex] 1,000 mg PO DAILY 01/19/24 01/19/24 dilTIAZem HCL [Diltiazem 24Hr ER] 240 mg PO DAILY 01/19/24 01/19/24 predniSONE [Prednisone] 10 mg PO DAILY #50 tab 01/19/24 - Allergies Allergies/Adverse Reactions: Allergies Allergy/AdvReac Type Severity Reaction Status Date / Time Sulfa (Sulfonamide Allergy Unknown Verified 01/19/24 10:29 Antibiotics) - Social History Does the pt smoke?: No Smoking Status: Never smoker Does the pt drink ETOH?: No Does the pt have substance abuse?: No - Immunizations Immunizations are current?: Yes - POLST Patient has POLST: No PD ED PE NORMAL - Vitals Vital signs reviewed: Yes - General General: Alert and oriented X 3, No acute distress (able to talk in sentences and without using accessory muscle use. ), Well developed/nourished - HEENT HEENT: Pharynx benign - Neck Neck: Supple, no meningeal sign, No adenopathy - Cardiac Cardiac: No murmur. No: RRR (rate is controlled but sounds irregular c/w presume atrial fib. ) - Respiratory Respiratory: No respiratory distress. No: Clear bilaterally (wheezing noted diffusely. Some coarse osunds right lower field. ) - Abdomen Abdomen: Soft, Non tender - Derm Derm: Normal color, Warm and dry - Extremities Extremities: No edema, No calf tenderness / cord - Neuro Neuro: Alert and oriented X 3, No motor deficit, Normal speech Results - Vitals Vitals: Vital Signs - 24 hr 01/19/24 01/19/24 01/19/24 10:24 11:19 12:37 Temperature 36.4 C L Heart Rate 93 75 68 Respiratory 20 18 16 Rate Blood Pressure 149/93 H 144/67 H O2 Saturation 88 L 93 If not protocol 5 3 : Oxygen Flow, liters/minute 01/19/24 01/19/24 13:00 13:53 Temperature 36.7 C Heart Rate 73 79 Respiratory 15 16 Rate Blood Pressure 145/62 H 131/63 H O2 Saturation 92 93 If not protocol 5 2 : Oxygen Flow, liters/minute Oxygen O2 Source [Without Activity] Oxymizer O2 Source Nasal cannula Oxygen Flow Rate 3 - Labs Labs: Laboratory Tests 01/19/24 01/19/24 01/19/24 12:33 12:33 12:33 WBC 10.3 RBC 4.60 Hgb 14.6 Hct 46.1 MCV 100.2 H MCH 31.7 H MCHC 31.7 L RDW 14.7 Plt Count 341 MPV 10.2 Neut # (Auto) 8.6 H Lymph # (Auto) 1.0 L [place] # (Auto) 0.5 Eos # (Auto) 0.0 Baso # (Auto) 0.0 Absolute Nucleated RBC 0.00 Nucleated RBC % 0.0 PT 19.0 H INR 1.8 H Sodium 139 Potassium 3.8 Chloride 102 Carbon Dioxide 30 Anion Gap 7.0 BUN 23 H Creatinine 0.8 Estimated GFR (MDRD) 69 L Glucose 98 Calcium 9.1 Magnesium 1.8 Total Bilirubin 0.7 AST 26 ALT 17 Alkaline Phosphatase 56 Total Protein 7.1 Albumin 4.1 Globulin 3.0 Albumin/Globulin Ratio 1.4 Lipase 15 - Rads (name of study) chest xray Relevant Findings:: Prelim report reviewed, EMP independent interpretation of test (similar to CT chest done several dasys ago. ) PD Medical Decision Making - ED course Complexity details: re-evaluated patient (she was saturating at 93-95% on 4 lpm at time of discharge. She does not have much room for raising her oxygen input as the home concentrator only goes to 5 lpm. I talked with her about hospita lization due to hypoxia on her usual home oxygen and she was firm about not wanting to be in the hospital. ), considered differential (has had persistent cough and dyspnea, with some improvement on abx and steroids, but has plateaued in improvement and is concerned about continued meds. She states has increased home Oxygen from usual 2.5 LPM to 4, and up to 5 today. Also concern on hemoptysis.), d/w patient Reviewed Lab Results: chest xray is similar degree of pneumonia compared to recent CT chest. No signs of fluid in lungs per se otherwise, and her Hgb is similar to prior and at normal level. She does not describe a notable amount of blood in sputum, but streaks of it with sputum. I do not get a sense of significnt bronchial bleeding. Departure - Departure Disposition: Home, Self Care Clinical Impression: Cough, Pneumonia, COPD exacerbation, Supplemental oxygen dependent Condition: Stable Record reviewed to determine appropriate education?: Yes Follow-Up: Maribell Claudio ARNP [Primary Care Provider] - Prescriptions: Amox/Clav 875/125 [Augmentin 875/125 Tab] 1 tablet PO BID 10 Days #10 tablet Doxycycline Hyclate 100 mg PO BID 5 Days #10 cap predniSONE [Prednisone] 10 mg PO DAILY #50 tab Comments: Your chest x-ray today compared to your CT scan recently looks to be about the same level of pneumonia. It does not seem to have progressed. There is no signs of pneumonia or fluid collected around the central portion of the lungs from which she would be coughing up phlegm. Essentially the pneumonia does not appear worsened. The blood in your sputum is common enough to that degree with just irritation of the bronchioles, especially in the setting of being on blood thinners. Your blood count is good without any signs of anemia or low blood count and your white count is normal as well. It is not appear that you are having the significant bleeding into the lungs etc. I presume is just a bronchial irritation with the cough. As such would have you continue with your usual medicines including the blood thinners. Return to the ER if you have a significant increase in the amount of blood that you are coughing (teaspoon or tablespoon at a time or such). I would anticipate your blood in the sputum to decrease as the infection and irritation decrease. Return to the ER if you have increased bleeding, worse trouble breathing or your oxygen need exceeds the ability of your concentrator at home (still hypoxic at greater than 5 L). As discussed, we can extend out your antibiotics further and have you the prolonged prednisone taper that has worked for you well in the past. I sent these prescriptions to the [id number] in [place]. Forms: PCP List Discharge Date/Time: 01/19/24 14:17
[2024-01-19] MEDS: IPRATROPIUM/ALBUTEROL 3 ML NEB INH STA (12:39)
[2024-01-19 12:41] LABS: BASOPHILS % (AUTO) 0.1 %; HCT - HEMATOCRIT 46.1 % (37.0-47.0); HGB - HEMOGLOBIN 14.6 g/dL (12.0-16.0); LYMPHOCYTES % (AUTO) 10.1 %; MEAN CORPUSCULAR HEMOGLOBIN 31.7 pg (27.0-31.0); MEAN CORPUSCULAR HGB CONC 31.7 g/dL (32.0-36.0); MEAN CORPUSCULAR VOLUME 100.2 fL (81.0-99.0); MEAN PLATELET VOLUME 10.2 fL (7.9-10.8); MONOCYTES # (AUTO) 0.5 10^3/uL (0.0-1.0); MONOCYTES % (AUTO) 5.3 %; NEUTROPHILS # (AUTO) 8.6 10^3/uL (1.5-6.6); NEUTROPHILS % (AUTO) 83.9 %; PLT - PLATELET COUNT 341 10^3/uL (130-450); RED CELL DISTRIBUTION WIDTH 14.7 % (12.0-15.0); WHITE BLOOD COUNT 10.3 x10^3/uL (4.8-10.8)
[2024-01-19] MEDS: dexAMETHasone 4 MG TABLET PO STA (12:45)
[2024-01-19 13:05] LABS: INR 1.8 (0.8-1.2)
--- NOTE | 2024-01-19 13:10 | XRAY Report ---
PROCEDURE: Chest 1V INDICATIONS: chest pain TECHNIQUE: One view of the chest was acquired. COMPARISON: Multiple priors, the most recent dated 05/13/2021 FINDINGS: Surgical changes and devices: None. Lungs and pleura: There is interstitial thickening within the right lower lobe which is slightly mor e prominent than seen on the previous exam. There is no pleural effusion or pneumothorax. Mediastinum: Mediastinal contours appear normal. Heart size is normal. Bones and chest wall: No suspicious bony lesions. Overlying soft tissues appear unremarkable. IMPRESSION: Findings suggestive of an atypical infectious process in the right lower lobe in the appropriate clin ical setting. This is not concordant with the patient's clinical presentation this may be secondary t o technique and could be confirmed with formal PA and lateral radiographs. Reviewed by: Damaris Rendon MD on 01/19/2024 12:09 PM SIVAKUMAR Approved by: Damaris Rendon MD on 01/19/2024 12:09 PM [email or web address] Station ID: [id number]
[2024-01-19 13:22] LABS: ALBUMIN 4.1 g/dL (3.2-5.5); ALBUMIN/GLOBULIN RATIO 1.4 (1.0-2.2); BILIRUBIN,TOTAL 0.7 mg/dL (0.2-1.0); CALCIUM 9.1 mg/dL (8.5-10.3); CREATININE 0.8 mg/dL (0.6-1.3); MAGNESIUM 1.8 mg/dL (1.7-2.3); POTASSIUM 3.8 mmol/L (3.5-4.5); TOTAL PROTEIN 7.1 g/dL (6.4-8.9)
[2024-01-19 13:56] VITALS: BP 131/63; O2SAT 93
== END 2024-01-19 14:17 | disposition home or self-care (01) ==
LOC: ED 10:09
DX: J44.1 Chronic obstructive pulmonary disease with (acute) exacerbation (principal); J18.9 Pneumonia, unspecified organism; I10 Essential (primary) hypertension; E78.00 Pure hypercholesterolemia, unspecified; I48.91 Unspecified atrial fibrillation; E05.90 Thyrotoxicosis, unspecified without thyrotoxic crisis or storm; Z99.81 Dependence on supplemental oxygen; Z79.899 Other long term (current) drug therapy; Z79.51 Long term (current) use of inhaled steroids; Z79.01 Long term (current) use of anticoagulants
CPT/HCPCS: 36415; 71045; 80053; 83690; 83735; 85025; 85610; 94640; 94664; 99284; J8540